=== PATIENT | male | born 1960 | race Caucasian/White ===

== ENCOUNTER → 2019-07-19 09:13 | Outpatient (CLI) | payer OTHER, SELFPAY ==
--- NOTE | 2019-07-19 09:19 | US_ITS ---
STUDY: SCROTUM ULTRASOUND REASON FOR EXAM: Male, 59 years old. LEFT TESTICLE SWELLING TECHNIQUE: Ultrasound evaluation of the scrotum was performed with color Doppler and static santos-scale imaging. COMPARISON: None. FINDINGS: RIGHT TESTICLE INTRATESTICULAR: There is a normal size of the right testicle. The right testicle measures 4.7 x 3.6 x 2.6 cm. There is a homogenous echotexture. There is normal arterial and normal venous vascularity. There is no demonstrated right testicular mass or cyst. EXTRATESTICULAR: The epididymis is normal in size. The epididymis head measures 1.4 cm. There is normal vascularity of the epididymis. There is no demonstrated epididymal cystic structure. There is a small hydrocele. There is no demonstrated varicocele. There is no demonstrated extratesticular mass or cyst. LEFT TESTICLE INTRATESTICULAR: There is a normal size of the left testicle. The left testicle measures 4.4 x 4.3 x 2.6 cm. There is a homogenous echotexture. There is normal arterial and normal venous vascularity. There is no demonstrated left testicular mass or cyst. EXTRATESTICULAR: The epididymis is normal in size. The epididymis head measures 1.8 cm. There is normal vascularity of the epididymis. There is no demonstrated epididymal cystic structure. There is either a large hydrocele or spermatocele measuring 6.7 x 6.5 x 3.8 cm and containing septations. There is no demonstrated varicocele. There is no demonstrated extratesticular mass or cyst. US/Testicular with Arterial Flow IMPRESSION: Normal bilateral testicles. Bilateral hydroceles, larger on the left than the right, the left hydrocele containing septations and could also be a spermatocele Electronically Signed: Braxton Hardwick MD at 10:15 EDT , Service support ,
== END ==
PROVIDERS: PCP Internal Medicine; Referring Provider Nurse Practitioner Adult Health; Visit Provider Nurse Practitioner Adult Health
DX: N43.2 Other hydrocele (principal); N50.9 Disorder of male genital organs, unspecified
CPT/HCPCS: 76870; 93976

== ENCOUNTER → 2020-09-19 09:30 | Outpatient (CLI) | payer OTHER, SELFPAY ==
--- NOTE | 2020-09-19 09:29 | EKG12_ITS ---
Test Reason : PREOP Blood Pressure : / mmHG Vent. Rate : 055 BPM Atrial Rate : 055 BPM P-R Int : 144 ms QRS Dur : 084 ms QT Int : 424 ms P-R-T Axes : 011 036 048 degrees QTc Int : 405 ms Sinus bradycardia Otherwise normal ECG Confirmed by FANNY CALVIN, JOANNA ([id number]), editor managing director SANDRA MILES ([id number]) on 09/20/2020 9:52:34 AM Referred By: Gustabo Santiago Confirmed By:JOANNA ESCOBEDO MD
[2020-09-19 10:24] LABS: Hematocrit 43.5 % (40-54); Mean Corp Hgb Conc 34.5 g/dL (32-36); Mean Corpuscular Hgb 30.4 pg (27.0-32.0); Mean Corpuscular Volume 88.1 fL (80-94); Mean Platelet Vol. 11.3 fl (6.2-12.0); Platelet Count 218 K/mm3 (150-450); RBC Distribution Width CV 12.7 % (11.6-14.6); RBC Distribution Width SD 41.1 fl (35.1-43.9); Red Blood Count 4.94 M/mm3 (4.6-6.2); White Blood Count 5.7 K/mm3 (4.4-11.0)
[2020-09-19 10:48] LABS: Anion Gap 3 (5-15); BUN 14 mg/dL (7-18); BUN/Creat Ratio 15.4 RATIO (10-20); Calcium,Total 8.1 mg/dL (8.5-10.1); Chloride 107 mmol/L (98-107); Creatinine, Serum 0.91 mg/dL (0.70-1.30); EST Glomerular Filtration Rate 90 mL/min (>60); Est Glom Filt Rate - Afr Amer 109 mL/min (>60); Glucose 87 mg/dL (74-106); Potassium 3.8 mmol/L (3.5-5.1); Sodium Level 138 mmol/L (136-145)
== END ==
PROVIDERS: PCP Internal Medicine; Referring Provider Urology; Visit Provider Urology
DX: Z01.812 Encounter for preprocedural laboratory examination (principal); Z01.818 Encounter for other preprocedural examination
CPT/HCPCS: 36415; 80048; 85027; 87635; 93005; C9803; U0005; U0003

== ENCOUNTER 2022-07-26 02:59 | Emergency (ER) | payer OTHER, SELFPAY ==
[2022-07-26 03:00] VITALS: BP 148/75; PULSE 58; RESP 16; TEMP 36.9; O2SAT 99; BMI 32.8
--- NOTE | 2022-07-26 03:35 | EX.ED.DYSGE1 ---
HPI History of Present Illness Chief Complaint: Dizziness Narrative Narrative: 62-year-old male woke up tonight with vertiginous dizziness he states that he looks to the left and noted that everything was spinning. He tried to get up and states he became very dizzy. He vomited 4 times. He denies any chest pain or shortness of breath. Patient denies any lightheadedness. Patient states he has no history of vertigo. PFSH PFS Medical History Bradycardia Home Medications aspirin 81 mg capsule 81 mg PO DAILY 07/26/22 [History Last Taken Unknown] atorvastatin 10 mg tablet 10 mg PO DAILY 07/26/22 [History Last Taken Unknown] levothyroxine 125 mcg tablet 125 mcg PO DAILY 07/26/22 [History Last Taken Unknown] meclizine 25 mg tablet 25 mg PO TID PRN dizziness #30 tabs 07/26/22 [Rx Last Taken Unknown] omega-3 fatty acids 1,000 mg PO DAILY 07/26/22 [History Last Taken Unknown] Allergy/AdvReac Type Severity Reaction Status Date / Time No Known Allergies Allergy Verified 07/26/22 03:03 Social History Smoking Status: Never smoker ROS ROS ED Review of Systems ROS Unobtainable: Denies due to encephalopathy or due to endotracheal tube Constitutional Constitutional ED: Denies subjective or sweats Eyes Eyes: Reports other Details: Vertiginous dizziness ENT ENT ED: Denies rhinorrhea or sore throat Cardiovascular Cardiovascular: Denies chest pain or palpitations Respiratory/Chest Respiratory/Chest: Denies cough or dyspnea Gastrointestinal Gastrointestinal: Reports nausea and vomiting; Denies abdominal pain Genitourinary Genitourinary ED: Denies dysuria or hematuria Musculoskeletal Musculoskeletal: Denies arthralgias Integumentary Denies abscess or Abrasions Neurologic Neurologic: Denies headache(s) or paresthesias EXAM Physical Exam Const Vital Signs: 07/26/22 03:00 07/26/22 04:18 Temperature 98.4 F Temperature Source Oral Pulse Rate 58 L 65 Respiratory Rate 16 15 Blood Pressure 148/75 H 133/80 H Blood Pressure Mean 99 97 Pulse Ox 99 97 Oxygen Delivery Method Room Air Room Air Positive well nourished General Appearance ED: NAD; Negative for pallor HEENT Reports moist mucous membranes HEENT Narrative: Positive Townsend-Hallpike Eyes PERRL and EOMs intact bilaterally Chest Wall inspection of chest normal Resp normal respiratory effort and clear to auscultation bilaterally Auscultation: Negative for rales, rhonchi or wheezes Cardio regular rhythm Rate: bradycardia GI normal to inspection, nondistended, normoactive bowel sounds Extremity General Extremety ED: Negative for edema or tenderness General Extremity: Negative for edema Neuro oriented x3 and CN's II-XII intact bilaterally Sensorium / Orientation: alert Motor Exam: strength 5/5 throughout Psych mental status grossly normal Skin no rashes or lesions noted and no wounds General Skin Exam: Negative for jaundice or pallor MDM MDM MDM Narrative Medical decision making narrative: Patient presenting with vertiginous dizziness. Based on exam has benign positional vertigo. Patient medicated. Will obtain basic lab work since the patient has been vomiting. CBC and BMP within normal limits. On reevaluation the patient feels better after being medicated with meclizine and Phenergan. He is ambulated in the hallway and has a stable gait. At this point I will discharge him home with prescription for meclizine. Return precautions discussed. Impression: 1. Benign positional vertigo Lab Data Attestation: I reviewed the patient's lab results. Labs: Laboratory Results - last 24 hr 07/26/22 07/26/22 03:15 03:15 WBC 6.7 RBC 4.82 Hgb 14.7 Hct 43.4 MCV 90.0 MCH 30.5 MCHC 33.9 RDW Std Deviation 40.7 RDW Coeff of [place] 12.3 Plt Count 191 MPV 11.2 Immature Gran % (Auto) 0.300 Neut % (Auto) 60.6 Lymph % (Auto) 27.8 [place] % (Auto) 7.8 Eos % (Auto) 3.1 Baso % (Auto) 0.4 Absolute Neuts (auto) 4.1 Absolute Lymphs (auto) 1.86 Nucleated RBC % 0 Sodium 143 Potassium 4.0 Chloride 110 H Carbon Dioxide 25.0 Anion Gap 8 BUN 19 H Creatinine 0.85 Estim Creat Clear Calc 83.17 Est GFR (MDRD) Af Amer 117 Est GFR (MDRD) Non-Af 97 BUN/Creatinine Ratio 22.4 H Glucose 133 H Calcium 8.5 Discharge Plan Triage Chief Complaint: Dizziness ED Provider: Mario Siu Dx/Rx/DC Orders Instructions: ED BPV Vertigo Prescriptions: New meclizine 25 mg tablet 25 mg PO TID PRN (Reason: dizziness) Qty: 30 0RF No Action atorvastatin 10 mg tablet 10 mg PO DAILY levothyroxine 125 mcg tablet 125 mcg PO DAILY [place] 3 Fish Oil Capsule 1,000 mg PO DAILY aspirin 81 mg Capsule 81 mg PO DAILY Primary Care Provider: Domingo Govea Referrals: Domingo Govea MD [Primary Care Provider] - Disposition Disposition: Home, Self Care
[2022-07-26] MEDS: proMETHazine 25 MG/ML Syringe 12.5 MG IM (03:45)
[2022-07-26 03:55] LABS: Absolute Lymphocyte Count 1.86 X10^3/uL (0.83-4.51); Absolute Neutrophil Count 4.1 X10^3/uL (2.0-7.7); Basophil# 0.03 X10^3/uL; Basophil% 0.4 % (0-1); Eosinophil# 0.21 X10^3/uL; Eosinophils% 3.1 % (0-5); Hematocrit 43.4 % (40-54); Hemoglobin 14.7 g/dL (13.0-16.5); Lymphocyte # 1.86 X10^3/ul (0.83-4.51); Lymphocyte % 27.8 % (19-41); Mean Corp Hgb Conc 33.9 g/dL (32-36); Mean Corpuscular Hgb 30.5 pg (27.0-32.0); Mean Platelet Vol. 11.2 fl (6.2-12.0); Monocyte# 0.52 X10^3/uL; Monocyte% 7.8 % (0-10); NRBC Flagged by Analyzer 0 % (0-5); Neutrophil # 4.06 X10^3/uL (2.7-7.7); Neutrophil % 60.6 % (47-70); Platelet Count 191 K/mm3 (150-450); RBC Distribution Width CV 12.3 % (11.6-14.6); RBC Distribution Width SD 40.7 fl (35.1-43.9); Red Blood Count 4.82 M/mm3 (4.6-6.2); White Blood Count 6.7 K/mm3 (4.4-11.0)
[2022-07-26 04:01] LABS: Anion Gap 8 (5-15); BUN 19 mg/dL (7-18); BUN/Creat Ratio 22.4 RATIO (10-20); Calcium,Total 8.5 mg/dL (8.5-10.1); Chloride 110 mmol/L (98-107); Creatinine, Serum 0.85 mg/dL (0.70-1.30); EST Glomerular Filtration Rate 97 mL/min (>60); Est Glom Filt Rate - Afr Amer 117 mL/min (>60); Estimated Creatinine Clearance 83.17 ml/min; Glucose 133 mg/dL (74-106); Sodium Level 143 mmol/L (136-145)
[2022-07-26] MEDS: Meclizine HCl 25 MG Tablet PO (04:17)
[2022-07-26 04:18] VITALS: BP 133/80; PULSE 65; RESP 15; O2SAT 97
[2022-07-26 05:42] VITALS: BP 133/80; PULSE 65; RESP 15; O2SAT 97
== END 2022-07-26 06:52 | disposition home or self-care (01) ==
PROVIDERS: Emergency Provider Student in an Organized Health Care Education/Training Program; PCP Internal Medicine; Visit Provider Student in an Organized Health Care Education/Training Program
DX: H81.12 Benign paroxysmal vertigo, left ear (principal); Z79.82 Long term (current) use of aspirin
CPT/HCPCS: 80048; 85025; 96372; 99285; A4216

== ENCOUNTER → 2024-09-04 | Outpatient (CLI) | payer MEDICARE, OTHER, SELFPAY | END | disposition home or self-care (01) | LOC: LABSPEC 11:30 | PROVIDERS: PCP Internal Medicine; Referring Provider Nurse Practitioner Family; Visit Provider Nurse Practitioner Family | DX: J02.9 Acute pharyngitis, unspecified (principal) | CPT/HCPCS: 87070 ==

== ENCOUNTER 2025-02-25 02:36 | Inpatient (IN) | payer MEDICARE, OTHER, SELFPAY ==
[2025-02-25] VITALS (11 sets, daily range): BP systolic 99–167; BP diastolic 67–101; PULSE 50–87; RESP 14–18; TEMP 36.5–36.8; O2SAT 56–100; BMI 35.3; BMI 33.6
--- NOTE | 2025-02-25 02:42 | EKG12_ITS ---
Test Reason : CP Blood Pressure : */* mmHG Vent. Rate : 63 BPM Atrial Rate : 63 BPM P-R Int : 120 ms QRS Dur : 74 ms QT Int : 384 ms P-R-T Axes : 1 15 29 degrees QTcB Int : 392 ms Normal sinus rhythm Low voltage QRS Borderline ECG Confirmed by Rafael Ortiz ([id number]), editorial specialist SANDRA MILES ([id number]) on 02/27/2025 10:04:40 AM Referred By: Christina Black Confirmed By: Rafael Ortiz
--- NOTE | 2025-02-25 02:50 | RAD_ITS ---
PROCEDURE: CHEST 1 VIEW (PORTABLE) 02/25/2025 REASON FOR EXAM: CHEST PAIN TECHNIQUE: Frontal view of the chest. COMPARISON: None available. FINDINGS: No focal lung consolidation, pneumothorax, or pleural effusion. The cardiomediastinal silhouette is within normal limits. The merly are within normal limits. Degenerative changes in the thoracic spine. RAD/Chest 1 View (Portable) IMPRESSION: No radiographic evidence of acute cardiopulmonary pathology. Reading Location: [id number]
[2025-02-25] MEDS: Nitroglycerin SL (ED/IMG/CATH) 0.4 MG TABLET SL (02:51)
[2025-02-25 03:01] LABS: Hematocrit 41.3 % (40-54); Hemoglobin 14.5 g/dL (13.0-16.5); Immature Granulocytes Count 0.030 X10^3/uL (0.0-0.0); Mean Corp Hgb Conc 35.1 g/dL (32-36); Mean Corpuscular Volume 86.6 fL (80-94); Mean Platelet Vol. 10.9 fl (6.2-12.0); NRBC Flagged by Analyzer 0 % (0-5); Platelet Count 224 K/mm3 (150-450); RBC Distribution Width CV 11.7 % (11.6-14.6); RBC Distribution Width SD 37.2 fl (35.1-43.9); Red Blood Count 4.77 M/mm3 (4.6-6.2); White Blood Count 7.2 K/mm3 (4.4-11.0)
[2025-02-25 03:10] LABS: Prothrombin Time (Protime)PT. 13.7 SECONDS (11.7-14.9)
[2025-02-25 03:11] LABS: Partial Thromboplast Time 28.8 Seconds (24.1-36.2)
--- OUTSIDE RECORDS SUMMARY | 2025-02-25 03:16 | XMS RPT_ITS | CCD ---
Author Organization [facility] Care Team Providers Care Arboriculture Teacher Name Role Phone Jeferson CALVIN, Dr. Lane Primary Care Provider Dr. Sathya Govea MD Referring Provider Milagros CALVIN, Dr. Burkett Attending Provider Roof PAINTER HELPER SPRAY-C, Victor M Bills Attending Provider [phone] Roof PAINTER HELPER SPRAY-C, Victor M H Referring Provider [phone] Jeferson, Butros Primary Care Unavailable Kwadwo Linares Attending Unavailable Alberto Govearos Referring Unavailable Latrolandf, Butros Primary Care Unavailable Roof PAINTER HELPER SPRAY, Victor M H Referring Unavailable Roof PAINTER HELPER SPRAY, Victor M H Attending Unavailable Care Physician, No Primary Primary Care Unava ilable Kwadwo Linares Referring Unavailable Kwadwo Linares Attending Unavailable Latouf, Butros Primary Care Unavailable Roof PAINTER HELPER SPRAY, Victor M H Attending Unavailable Lattamia Butros Referring Unavailable BRAXTON, KELSEY Referring Unavailable BRAXTON, KELSEY Primary Care Unavailable BRAXTON, KELSEY Attending Unavailable BRAXTON, KELSEY Primary Care Unavailable BRAXTON, KELSEY Primary Care Unavailable BRAXTON, KELSEY Referring Unavailable BRAXTON, KELSEY Primary Care Unavailable BRAXTON, KELSEY Attending Unavailable SELF Referring Unavailable SATHYA GOVEA MD Attending Unavailable SATHYA GOVEA MD Admitting Unavailable SATHYA GOVEA MD Consulting Unavailable SATHYA GOVEA MD Primary Care Unavailable PROVIDER, UNKNOWN Consulting Unavailable PROVIDER, UNKNOWN Consulting Unavailable PROVIDER, UNKNOWN Consulting Unavailable May STUCCO APPLICATOR Referring Unavailable LUCIORVIKTOR AUNG DO Primary Care Unavailable AUNG NAPOLES DO Attending Unavailable May STUCCO APPLICATOR Consulting Unavailable AUNG NAPOLES DO Admitting Unavailable PROVIDER, UNKNOWN Consulting Unavailable PROVIDER, UNKNOWN Consulting Unavailable May STUCCO APPLICATOR Referring Unavailable May STUCCO APPLICATOR Consulting Unavailable RIKI DIOR MD Primary Care Unavailable RIKI DIOR MD Attending Unavailable RIKI DIOR MD Admitting Unavailable PROVIDER, UNKNOWN Consulting Unavailable PROVIDER, UNKNOWN Consulting Unavailable DONNA MACK Primary Care Unavailable MARTINA, DONNA Attending Unavailable MARTINA, DONNA Admitting Unavailable SATHYA GOVEA MD Consulting Unavailable PROVIDER, UNKNOWN Consulting Unavailable PROVIDER, UNKNOWN Consulting Unavailable PROVIDER, UNKNOWN Consulting Unavailable OSVALDO TAYLOR MD Attending Unavailab OSVALDO Dahl MD Admitting Unavailab OSVALDO Dahl MD Primary Care Unavailab le COREY, MAY STUCCO APPLICATOR Attending Unavailable COREY, MAY STUCCO APPLICATOR Admitting Unavailable COREY, MAY STUCCO APPLICATOR Primary Care Unavailable COREY, MAY STUCCO APPLICATOR Consulting Unavailable PROVIDER, UNKNOWN Consulting Unavailable PROVIDER, UNKNOWN Consulting Unavailable COREY, MAY STUCCO APPLICATOR Attending Unavailable COREY, MAY STUCCO APPLICATOR Admitting Unavailable COREY, MAY STUCCO APPLICATOR Primary Care Unavailable COREY, MAY STUCCO APPLICATOR Consulting Unavailable PROVIDER, UNKNOWN Consulting Unavailable PROVIDER, UNKNOWN Consulting Unavailable SATHYA GOVEA MD Admitting Unavailable SATHYA GOVEA MD Attending Unavailable SATHYA GOVEA MD Consulting Unavailable SATHYA GOVEA MD Primary Care Unavailable PROVIDER, UNKNOWN Consulting Unavailable PROVIDER, UNKNOWN Consulting Unavailable PROVIDER, UNKNOWN Consulting Unavailable COREY, MAY STUCCO APPLICATOR Attending Unavailable COREY, MAY STUCCO APPLICATOR Admitting Unavailable COREY, MAY STUCCO APPLICATOR Primary Care Unavailable COREY, MAY STUCCO APPLICATOR Consulting Unavailable PROVIDER, UNKNOWN Consulting Unavailable PROVIDER, UNKNOWN Consulting Unavailable OSVALDO TAYLOR MD Primary Care Unavailab OSVALDO Dahl MD Attending Unavailab OSVALDO Dahl MD Admitting Unavailab le COREY, MAY STUCCO APPLICATOR Consulting Unavailable PROVIDER, UNKNOWN Consulting Unavailable PROVIDER, UNKNOWN Consulting Unavailable COREY, MAY STUCCO APPLICATOR Attending Unavailable COREY, MAY STUCCO APPLICATOR Admitting Unavailable COREY, MAY STUCCO APPLICATOR Primary Care Unavailable COREY, MAY STUCCO APPLICATOR Consulting Unavailable PROVIDER, UNKNOWN Consulting Unavailable PROVIDER, UNKNOWN Consulting Unavailable SATHYA GOVEA MD Attending Unavailable SATHYA GOVEA MD Consulting Unavailable SATHYA GOVEA MD Primary Care Unavailable SATHYA GOVEA MD Admitting Unavailable PROVIDER, UNKNOWN Consulting Unavailable PROVIDER, UNKNOWN Consulting Unavailable PROVIDER, UNKNOWN Consulting Unavailable Allergies Allergy Classification Reported Allergen(s) Allergy Type Date of Onset Reaction(s) Facility (3 sources) predniSONE; Translations: [PREDNISONE] Drug Allergy 5 PT UNSURE OF REACTION [facility] (1 source) predniSONE Drug Allergy [address] [facility] Repository Medications Current Medications Medication Drug Class(es) Dates Sig (Normalized) Sig (Original) ascorbic acid 500 mg oral capsule (3 sources) Vitamin C Start: 08-31-2024 Ascorbic Acid (Vitamin C) 500 mg capsule Active mg PO August 31, 2024 12:00am aspirin 81 mg oral tablet (4 sources) Platelet Aggregation Inhibitor, Nonsteroidal Anti-inflammatory Drug Start: 07-26-2022 take 1 capsule by mouth once daily Aspirin 81 mg Capsule Active 81 mg PO DAILY July 26, 2022 12:00am atorvastatin 10 mg oral tablet (4 sources) HMG-CoA Reductase Inhibitor Start: 07-26-2022 take 1 tablet by mouth once daily Atorvastatin 10 mg tablet Active 10 mg PO DAILY July 26, 2022 12:00am cholecalciferol 0.05 mg oral capsule (3 sources) Vitamin D Start: 08-31-2024 take 1 capsule by mouth once daily Cholecalciferol (Vitamin D3) 50 mcg (2,000 unit) capsule Active 50 ug PO daily August 31, 2024 12:00am doxycycline hyclate 100 mg oral capsule (2 sources) Tetracycline-clas s Drug Start: 09-03-2024 take 1 capsule by mouth twice daily Doxycycline Hyclate 100 mg capsule Active 100 mg PO TWICE A DAY 14 7 0 September 03, 2024 12:00am September 09, 2024 12:00am levothyroxine sodium 0.125 mg oral tablet (4 sources) l-Thyroxine Start: 07-26-2022 take 1 tablet by mouth once daily Levothyroxine 125 mcg tablet Active 125 ug PO DAILY July 26, 2022 12:00am Russell-3 Fatty Acids (Russell 3 Fish Oil) Capsule (4 sources) Start: 07-26-2022 take 1 capsule by mouth once daily Russell-3 Fatty Acids (Russell 3 Fish Oil) Capsule Active 1000 mg PO DAILY July 26, 2022 12:00am Start: 07-26-2022 take 1 capsule by mouth once d aily Russell-3 Fatty Acids (Russell 3 Fish Oil) Capsule Active 1000 MG PO DAILY July 26, 2022 12:00am Completed/Discontinued Medications Medication Drug Class(es) Dates Sig (Normalized) Sig (Original) meclizine hydrochloride 25 mg oral tablet (4 sources) Antiemetic Start: 07-26-2022 End: 08-31-2024 take 1 tablet by mouth three times daily as needed for dizziness Meclizine 25 mg tablet Discontinued 25 mg PO THREE TIMES A DAY as needed for dizziness 30 0 July 26, 2022 5:43am August 31, 2024 9:20am Problems Active Problems Problem Classification Problem Date Documented Da te Episodic/Chronic Administrative/social admission (1 source) Persons encountering health services in other specified circumstances; Translations: [Encounter to establish care] Onset: 5 Episodic Congestive heart failure; nonhypertensive (1 source) Heart failure, unspecified; Translations: [Heart failure, unspecified HF chronicity, unspecified heart failure type (HCC)] Onset: 5 Chronic Disorders of lipid metabolism (6 sources) Mixed hyperlipidemia; Translations: [Hyperlipidemia, unspecified] Onset: 4 Chronic Essential hypertension (2 sources) Essential (primary) hypertension; Translations: [Primary hypertension] Onset: 5 Chronic Immunizations and screening for infectious disease (1 source) Encounter for screening for human immunodeficiency virus [HIV]; Translations: [Encounter for screening for human immunodeficiency virus (HIV)] Onset: 5 Episodic Nutritional deficiencies (1 source) Vitamin D deficiency, unspecified; Translations: [Vitamin D deficiency, unspecified] Onset: 5 Chronic Other gastrointestinal disorders (6 sources) Dysphagia; Translations: [Dysphagia, unspecified] 08-31-2024 Episodic Other gastrointestinal disorders (1 source) Dysphagia, unspecified; Translations: [Dysphagia, unspecified] Onset: 5 Episodic Other liver diseases (1 source) Other specified diseases of liver; Translations: [Liver cyst] Onset: 5 Chronic Other nutritional; endocrine; and metabolic disorders (1 source) Body mass index (BMI) 36.0-36.9, adult; Translations: [Body mass index (BMI) 36.0-36.9, adult] Onset: 5 Chronic Other upper respiratory infections (5 sources) Acute pharyngitis; Translations: [Acute pharyngitis, unspecified] Onset: 5 09-03-2024 Episodic Screening and history of mental health and substance abuse codes (2 sources) Encounter for screening for depression; Translations: [Encounter for screening examination for other mental health and behavioral disorders] Onset: 5 Episodic Thyroid disorders (2 sources) Hypothyroidism, unspecified; Translations: [Hypothyroidism, acquired] Onset: Chronic Past or Other Problems Problem Classification Problem Date Documented Da te Episodic/Chronic Abdominal pain (1 source) Unspecified abdominal pain; Translations: [Unspecified abdominal pain] Onset: 08-10-2024 Episodic Other screening for suspected conditions (not mental disorders or infectious disease) (12 sources) Patient encounter status; Translations: [Encounter for screening for malignant neoplasm of colon] Onset: 08-10-2024 08-31-2024 Episodic Results Test Name Value Interpretation Reference Range Facility CNOVon 12-22-2024 CNOV Office Visit (FAMPWS ) ----- TOD PABON ([id number]) 1960 M Date Time Provider Department 12/22/24 4:20 PM KELSEY [facility] During your visit today, we recorded the following information about you: Pulse Respiration Blood pressure 67/minute 12/minute 138/100 Kelsey Braxton MD 12/24/2024 10:19 AM Signed Family Medicine OUTPATIENT VISIT December 22, 2024 CC: HLD FU HPI: 64 year old male patient with a history of HLD on atorvastatin Hypothyroidism on synthroid HTN on lisinopril 2.5 Liver cysts On asa for primary prevention ALEXYS on 12/13 Cards 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 He reports he has a high PVC burden and he reports he has an ejection fraction from 50-55%. Reports he is asymptomatic. We do not have further records regarding his cardiac history today and this is what he can recall. He would like to establish with [facility] cards. Reports he has not been diagnosed with HTN (however he is on lisinopril) and he is usually normotensive. He has a BP cuff at home. He has not been taking lisinopril for months. Interval events HDL mildly low. LDL 96 Hep B not immune Cards note from 06/30. Stress test 09/18 negative for inducible ischemia or infarct. Echo normal EF, wall motion. Holter 08/20 average HR 64. Minimum HR 39 while asleep. BP: He has started taking his BP med every other day. He is mostly in the 120-130/80's. Review of Systems PAIN ASSESSMENT: Negative for pain, history of chronic pain, or current treatment for a chronic pain condition. GENERAL: No weight loss, or fevers HEENT: Negative for frequent or significant headaches RESPIRATORY: Negative for cough, wheezing, shortness of breath CARDIOVASCULAR: Negative for chest pain, palpitations, PND or orthopnea GI: No nausea, vomiting, or diarrhea or abdominal pain. No IN bleeding or melana : No history of dysuria, frequency, urgency, or change in urine appearance NEURO: No history of headaches, numbness, weakness, or changes to vision or hearing Health maintenance: Anxiety Screening Never done DTaP,Tdap,Td Vaccine(1 - Tdap) Never done Colorectal Cancer Screening Never done Shingrix Vaccine(1 of 2) Never done Pneumococcal Vaccine: 50+(1 of 1 - PCV) Never done Medicare Annual Wellness Visit Never done Advance Directive Discussion Never done Allergies: ALLERGIES Allergen Reactions Prednisone Swelling inflamed kidney blood pressure elevated Medications: Cholecalciferol, Vitamin D3, (VITAMIN D) 25 mcg (1,000 unit) cap Take 1,000 Units by mouth once daily. Ascorbic Acid (VITAMIN C) 1,000 mg tablet Take 1,000 mg by mouth once daily. atorvastatin (LIPITOR) 10 mg tablet Take 0.5 tablets by mouth once daily. levothyroxine 125 mcg cap Take 1 capsule by mouth once daily. Zinc Gluconate 50 mg tablet Take 50 mg by mouth once daily. lisinopril 2.5 mg tablet Take 1 tablet by mouth once daily. fish oil/borage/flax/om3,6,9 1 (OMEGA 3-6-9 COMPLEX ORAL) Take 1 tablet by mouth once daily. ubidecarenone Q-10 (CO Q-10) 10 mg cap Take by mouth as needed (every other day). aspirin, enteric coated (ASPIRIN, ENTERIC COATED) 81 mg EC tablet Take 81 mg by mouth once daily. Past Medical History: PAST MEDICAL HISTORY Diagnosis Date Hyperlipemia Hypothyroidism Social History: SOCIAL HISTORY[1] Family History: Family History Problem Relation Age of Onset Heart Attack Mother Heart Attack Brother BP 138/100 Pulse 67 Resp 12 SpO2 98% General: Awake, alert, not in acute distress, obese EAR SPECIALIST: Answering questions appropriately. No abnormal posturing or positioning. Speech is normal. Strength grossly intact. RESP: Clear lungs bilateral with good air entry, No increased work of breathing CVS: RRR, No murmur. Pulses 2+. GI: Abdomen is soft, non distended, non tender. No masses or hepatomegaly appreciated. Skin/Other: No rashes or lesions. HEENT: pupils equal Extremities: No peripheral edema, swelling or erythema of lower extremities. Labs: Reviewed the following: Pertinent labs as outlined above Latest Ref Rng 12/13/2024 Protein, Total 6.3 - 8.0 g/dL 8.0 Albumin 3.9 - 4.9 g/dL 4.8 Calcium 8.5 - 10.2 mg/dL 9.4 Bilirubin, Total 0.2 - 1.3 mg/dL 1.3 Alkaline Phosphatase 38 - 113 U/L 63 AST 14 - 40 U/L 21 ALT 10 - 54 U/L 22 Glucose 74 - 99 mg/dL 94 BUN 9 - 24 mg/dL 12 Creatinine 0.73 - 1.22 mg/dL 0.84 Sodium 136 - 144 mmol/L 140 Potassium 3.7 - 5.1 mmol/L 4.8 Chloride 98 - 107 mmol/L 104 CO2 22 - 30 mmol/L 25 Anion Gap 8 - 15 mmol/L 11 eGFR >=60 mL/min/1.73m? 97 WBC 3.70 - 11.00 k/uL 6.53 RBC 4.20 - 6.00 m/uL 5.20 Hemoglobin 13.0 - 17.0 g/dL 15.8 Hematocrit 39.0 - 51.0 % 47.4 MCV 80.0 - 100.0 fL 91.2 MCH 26.0 - 34.0 pg 30.4 MCHC 30.5 - 36.0 g/dL 33.3 RDW-CV 11.5 - 15.0 % 12.9 Platelet Count 150 - 400 k/uL 236 MPV 9.0 - 12.7 fL 11.7 Absol (more content not included)... Normal [facility] PSA/PROSTATE SPECIFIC ANTIGE N SCREENINGon 12-22-2024 Prostate specific Ag [Mass/Vol] 1.22 ng/mL Normal <2.60 [facility] Comment on above: Order Comment: Speci men Type: BLOOD SPECIMEN Ordering Facility: [facility] Address: [address] [place] [address] Result Comment: Tota l PSA test methodology used is the Electrochemiluminescence Immunoassay by [employer]. Total PSA values by differing methodologies cannot be interchanged. Performed By: #### L IPNF, TSHRF, 07627-2, 2776-1 #### [facility] CLIA [id number] [address] [place] [address] [place] 25(OH)D3 SerPl-ncon 2024 25-hydroxyvitamin D3 [Mass/Vol] 60.8 ng/mL Normal 31.0-80.0 [facility] Comment on above: Order Comment: Speci men Type: BLOOD SPECIMEN Ordering Facility: [facility] Address: [address] [place] [address] Performed By: #### L IPNF, TSHRF, 84262-8, 2776-03 #### [facility] CLIA [id number] [address] [place] [address] [place] CBC panel Auto (Bld)on 12-13 Erythrocyte distribution width (RBC) [Ratio] 12.9 % Normal 11.5-15.0 [facility] Comment on above: Order Comment: Speci men Type: BLOOD SPECIMEN Ordering Facility: [facility] Address: [address] [place] [address] Performed By: #### L IPNF, TSHRF, 54272-0, 2776-03 #### [facility] CLIA [id number] [address] [place] [address] [place] Hematocrit (Bld) [Volume fraction] 47.4 % Normal 39.0-51.0 [facility] Comment on above: Order Comment: Speci men Type: BLOOD SPECIMEN Ordering Facility: [facility] Address: [address] [place] [address] Performed By: #### L IPNF, TSHRF, 03447-6, 277- #### [facility] CLIA [id number] [address] [place] [address] [place] Hemoglobin (Bld) [Mass/Vol] 15.8 g/dL Normal 13.0-17.0 [facility] Comment on above: Order Comment: Speci men Type: BLOOD SPECIMEN Ordering Facility: [facility] Address: [address] [place] [address] Performed By: #### L IPNF, TSHRF, 66973-8, 2776-03 #### [facility] CLIA [id number] [address] [place] [address] [place] MCH (RBC) [Entitic mass] 30.4 pg Normal 26.0-34.0 [facility] Comment on above: Order Comment: Speci men Type: BLOOD SPECIMEN Ordering Facility: [facility] Address: [address] [place] [address] Performed By: #### L IPNF, TSHRF, , 2776-03 #### [facility] CLIA [id number] [address] [place] [address] [place] MCHC (RBC) [Mass/Vol] 33.3 g/dL Normal 30.5-36.0 [facility] Comment on above: Order Comment: Speci men Type: BLOOD SPECIMEN Ordering Facility: [facility] Address: [address] [place] [address] Performed By: #### L IPNF, TSHRF, 24773-9, 2776-03 #### [facility] CLIA [id number] [address] [place] [address] [place] MCV (RBC) [Entitic vol] 91.2 fL Normal 80.0-100.0 [facility] Comment on above: Order Comment: Speci men Type: BLOOD SPECIMEN Ordering Facility: [facility] Address: [address] [place] [address] Performed By: #### L IPNF, TSHRF, 78101-8, 277- #### [facility] CLIA [id number] [address] [place] [address] [place] Nucleated RBC (Bld) [#/Vol] 10*3/uL Normal <0.01 [facility] Comment on above: Order Comment: Speci men Type: BLOOD SPECIMEN Ordering Facility: [facility] Address: [address] [place] [address] Performed By: #### L IPNF, TSHRF, , 2776-03 #### [facility] CLIA [id number] [address] [place] [address] [place] Platelet mean volume (Bld) [Entitic vol] 11.7 fL Normal 9.0-12.7 [facility] Comment on above: Order Comment: Speci men Type: BLOOD SPECIMEN Ordering Facility: [facility] Address: [address] [place] [address] Performed By: #### L IPNF, TSHRF, , 2776-03 #### [facility] CLIA [id number] [address] [place] [address] [place] Platelets (Bld) [#/Vol] 236 10*3/uL Normal 150-400 [facility] Comment on above: Order Comment: Speci men Type: BLOOD SPECIMEN Ordering Facility: [facility] Address: [address] [place] [address] Performed By: #### L IPNF, TSHRF, , 2776-03 #### [facility] CLIA [id number] [address] [place] [address] [place] RBC (Bld) [#/Vol] 5.20 10*6/uL Normal 4.20-6.00 [facility] Comment on above: Order Comment: Speci men Type: BLOOD SPECIMEN Ordering Facility: [facility] Address: [address] [place] [address] Performed By: #### L IPNF, TSHRF, , 2776-03 #### [facility] CLIA [id number] [address] [place] [address] [place] WBC (Bld) [#/Vol] 6.53 10*3/uL Normal 3.70-11.00 [facility] Comment on above: Order Comment: Speci men Type: BLOOD SPECIMEN Ordering Facility: [facility] Address: [address] [place] [address] Performed By: #### L ELAYNE, [facility], 04431-1, 2777-1 #### [facility] CLIA [id number] [address] [place] [address] [place] CNOVon 12-13-2024 CNOV Office Visit (FAMWS ) ----- TOD PABON ([id number]) 1960 M Date Time Provider Department 12/13/24 9:00 AM KELSEY BRAXTON [facility] During your visit today, we recorded the following information about you: Temperature Pulse Blood pressure Weight 97.9 degrees 70/minute 152/104 100.2 kg Height 1.657 m Kelsey Braxton MD 12/13/2024 4:12 PM Signed Family Medicine OUTPATIENT VISIT December 13, 2024 CC: Establish care HPI: 64 year old male patient with a history of HLD on atorvastatin Hypothyroidism on synthroid HTN on lisinopril 2.5 Liver cysts On asa for primary prevention Cards 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 He reports he has a high PVC burden and he reports he has an ejection fraction from 50-55%. Reports he is asymptomatic. We do not have further records regarding his cardiac history today and this is what he can recall. He would like to establish with [facility] cards. Reports he has not been diagnosed with HTN (however he is on lisinopril) and he is usually normotensive. He has a BP cuff at home. He has not been taking lisinopril for months. Review of Systems PAIN ASSESSMENT: Negative for pain, history of chronic pain, or current treatment for a chronic pain condition. GENERAL: No weight loss, or fevers HEENT: Negative for frequent or significant headaches RESPIRATORY: Negative for cough, wheezing, shortness of breath CARDIOVASCULAR: Negative for chest pain, palpitations, PND or orthopnea GI: No nausea, vomiting, or diarrhea or abdominal pain. No IN bleeding or melana : No history of dysuria, frequency, urgency, or change in urine appearance NEURO: No history of headaches, numbness, weakness, or changes to vision or hearing Health maintenance: Anxiety Screening Never done Hepatitis C Screening Never done HIV Screening Never done DTaP,Tdap,Td Vaccine(1 - Tdap) Never done Lipid Screening Never done Diabetes Screening Never done Prostate Cancer Screening Discussion Never done Colorectal Cancer Screening Never done Shingrix Vaccine(1 of 2) Never done Pneumococcal Vaccine: 50+(1 of 1 - PCV) Never done Medicare Annual Wellness Visit Never done Advance Directive Discussion Never done Influenza Vaccine(1) Never done Covid-19 Vaccine(1 - season) Never done Allergies: ALLERGIES Allergen Reactions Prednisone Swelling inflamed kidney blood pressure elevated Medications: Cholecalciferol, Vitamin D3, (VITAMIN D) 25 mcg (1,000 unit) cap Take 1,000 Units by mouth once daily. Ascorbic Acid (VITAMIN C) 1,000 mg tablet Take 1,000 mg by mouth once daily. Zinc Gluconate 50 mg tablet Take 50 mg by mouth once daily. fish oil/borage/flax/om3,6,9 1 (OMEGA 3-6-9 COMPLEX ORAL) Take 1 tablet by mouth once daily. ubidecarenone Q-10 (CO Q-10) 10 mg cap Take by mouth as needed (every other day). aspirin, enteric coated (ASPIRIN, ENTERIC COATED) 81 mg EC tablet Take 81 mg by mouth once daily. atorvastatin (LIPITOR) 10 mg tablet Take 0.5 tablets by mouth once daily. levothyroxine 125 mcg cap Take 1 capsule by mouth once daily. lisinopril 2.5 mg tablet Take 1 tablet by mouth once daily. Past Medical History: PAST MEDICAL HISTORY Diagnosis Date Hyperlipemia Hypothyroidism Social History: SOCIAL HISTORY[1] Family History: Family History Problem Relation Age of Onset Heart Attack Mother Heart Attack Brother BP 152/104 Pulse 70 Temp 36.6 ?C (97.9 ?F) (Temporal) Ht 165.7 cm (5' 5.25) Wt 100.2 kg (220 lb 12.8 oz) SpO2 98% BMI 36.46 kg/m? General: Awake, alert, not in acute distress EAR SPECIALIST: Answering questions appropriately. No abnormal posturing or positioning. Speech is normal. Strength grossly intact. RESP: Clear lungs bilateral with good air entry, No increased work of breathing CVS: RRR, No murmur. Pulses 2+. GI: Abdomen is soft, non distended, non tender. No masses or hepatomegaly appreciated. Skin/Other: No rashes or lesions. HEENT: pupils equal Extremities: No peripheral edema, swelling or erythema of lower extremities. Labs: Reviewed the following: Pertinent labs as outlined above Reviewed scanned labs, he had a borderline KATHLEEN iso bronchitis,has chronic mildly elevated bili. TSH high with normal T4. Imaging: Reviewed the following: None Assessment/Plan: ASSESSMENT/PLAN: 1. Encounter to establish care - ICD9: V65.8, ICD10: Z76.89 (primary diagnosis) Reviewed history above. Very limited history as we cannot access his records. Had him sign release of records form. Will have him return for follow up and review records. - LIPID PANEL, NONFASTING - COMPLETE BLOOD COUNT - COMPREHENSIVE METABOLIC PANEL - HEMOGLOBIN A1C - HIV 1/2 COMBO WITH REFLEX TO DIFFERENTIATION - HEP REMOTE PANEL BL - VITAMIN D 25 HYDROXY 2. Screening for depression - ICD9: V79.0, ICD10: Z13.31 neg - DEPRESSION SCREE (more content not included)... Normal [facility] Comprehensive metabolic 2000 panelon 12-13-2024 Albumin [Mass/Vol] 4.8 g/dL Normal 3.9-4.9 [facility] Comment on above: Order Comment: Speci men Type: BLOOD SPECIMEN Ordering Facility: [facility] Address: [address] [place] [address] Performed By: #### L IPNF, TSHRF, , 2776-03 #### [facility] CLIA [id number] [address] [place] [address] [place] ALP [Catalytic activity/Vol] 63 U/L Normal 38-113 [facility] Comment on above: Order Comment: Speci men Type: BLOOD SPECIMEN Ordering Facility: [facility] Address: [address] [place] [address] Performed By: #### L IPNF, TSHRF, , 2776-03 #### [facility] CLIA [id number] [address] [place] [address] [place] ALT [Catalytic activity/Vol] 22 U/L Normal 10-54 [facility] Comment on above: Order Comment: Speci men Type: BLOOD SPECIMEN Ordering Facility: [facility] Address: [address] [place] [address] Performed By: #### L IPNF, TSHRF, 13427-1, 2777-1 #### [facility] CLIA [id number] [address] [place] [address] [place] Anion gap [Moles/Vol] 11 mmol/L Normal 8-15 [facility] Comment on above: Order Comment: Speci men Type: BLOOD SPECIMEN Ordering Facility: [facility] Address: [address] [place] [address] Performed By: #### L IPNF, TSHRF, 45423-8, 277- #### [facility] CLIA [id number] [address] [place] [address] [place] AST [Catalytic activity/Vol] 21 U/L Normal 14-40 [facility] Comment on above: Order Comment: Speci men Type: BLOOD SPECIMEN Ordering Facility: [facility] Address: [address] [place] [address] Performed By: #### L IPNF, TSHRF, 30429-5, 2777- #### [facility] CLIA [id number] [address] [place] [address] [place] Bilirubin [Mass/Vol] 1.3 mg/dL Normal 0.2-1.3 [facility] Comment on above: Order Comment: Speci men Type: BLOOD SPECIMEN Ordering Facility: [facility] Address: [address] [place] [address] Performed By: #### L IPNF, TSHRF, 48070-8, 2777-1 #### [facility] CLIA [id number] [address] [place] [address] [place] Calcium [Mass/Vol] 9.4 mg/dL Normal 8.5-10.2 [facility] Comment on above: Order Comment: Speci men Type: BLOOD SPECIMEN Ordering Facility: [facility] Address: [address] [place] [address] Performed By: #### L IPNF, TSHRF, , 2776-03 #### [facility] CLIA [id number] [address] [place] [address] [place] Chloride [Moles/Vol] 104 mmol/L Normal 98-107 [facility] Comment on above: Order Comment: Speci men Type: BLOOD SPECIMEN Ordering Facility: [facility] Address: [address] [place] [address] Performed By: #### L IPNF, TSHRF, , 2776-03 #### [facility] CLIA [id number] [address] [place] [address] [place] CO2 [Moles/Vol] 25 mmol/L Normal 22-30 [facility] Comment on above: Order Comment: Speci men Type: BLOOD SPECIMEN Ordering Facility: [facility] Address: [address] [place] [address] Performed By: #### L IPNF, TSHRF, , 2776-03 #### [facility] CLIA [id number] [address] [place] [address] [place] Creatinine [Mass/Vol] 0.84 mg/dL Normal 0.73-1.22 [facility] Comment on above: Order Comment: Speci men Type: BLOOD SPECIMEN Ordering Facility: [facility] Address: [address] [place] [address] Performed By: #### L IPNF, TSHRF, , 2776-03 #### [facility] CLIA [id number] [address] [place] [address] [place] eGFRcr SerPlBld CKD-EPI 2021 97 mL/min/1.73m??? Normal >=60 [facility] Comment on above: Order Comment: Speci men Type: BLOOD SPECIMEN Ordering Facility: [facility] Address: [address] [place] [address] Result Comment: Nani mated Glomerular Filtration Rate (eGFR) is calculated using the 2020 CKD-EPI creatinine equation. This equation utilizes serum creatinine, sex, and age as parameters. The creatinine assay has traceable calibration to isotope dilution-mass spectrometry. Refer to KDIGO guidelines for clinical interpretation. In patients with unstable renal function, e.g. those with acute kidney injury, the eGFR may not accurately reflect actual GFR. Performed By: #### L ELAYNE, TSH, 47537-1, 2776- #### [facility] CLIA [id number] [address] [place] [address] [place] Glucose [Mass/Vol] 94 mg/dL Normal 74-99 [facility] Comment on above: Order Comment: Fox barr Type: BLOOD SPECIMEN Ordering Facility: [facility] Address: [address] [place] [address] Result Comment: The [place] Diabetes Association (ADA) provides guidance for cutoff values for fasting glucose and random glucose. The ADA defines fasting as no caloric intake for at least 8 hours. Fasting plasma glucose results between 100 to 125 mg/dL indicate increased risk for diabetes (prediabetes). Fasting plasma glucose results greater than or equal to 126 mg/dL meet the criteria for diagnosis of diabetes. In the absence of unequivocal hyperglycemia, results should be confirmed by repeat testing. In a patient with classic symptoms of hyperglycemia or hyperglycemic crisis, random plasma glucose results greater than or equal to 200 mg/dL meet the criteria for diagnosis of diabetes. Reference: Standards of Medical Care in Diabetes 2016, [place] Diabetes Association. Diabetes Care. 2016.39(Suppl 1). Performed By: #### L ELAYNE, TSH, 07152-2, 2776-03 #### [facility] CLIA [id number] [address] [place] [address] [place] Potassium [Moles/Vol] 4.8 mmol/L Normal 3.7-5.1 [facility] Comment on above: Order Comment: Fox barr Type: BLOOD SPECIMEN Ordering Facility: [facility] Address: [address] [place] [address] Performed By: #### L IPNF, TSHRF, 95514-6, 2776-03 #### [facility] CLIA [id number] [address] [place] [address] [place] Protein [Mass/Vol] 8.0 g/dL Normal 6.3-8.0 [facility] Comment on above: Order Comment: Speci men Type: BLOOD SPECIMEN Ordering Facility: [facility] Address: [address] [place] [address] Performed By: #### L IPNF, TSHRF, 69337-3, 2776-03 #### [facility] CLIA [id number] [address] [place] [address] [place] Sodium [Moles/Vol] 140 mmol/L Normal 136-144 [facility] Comment on above: Order Comment: Speci men Type: BLOOD SPECIMEN Ordering Facility: [facility] Address: [address] [place] [address] Performed By: #### L IPNF, TSHRF, , 2776-03 #### [facility] CLIA [id number] [address] [place] [address] [place] Urea nitrogen [Mass/Vol] 12 mg/dL Normal 9-24 [facility] Comment on above: Order Comment: Speci men Type: BLOOD SPECIMEN Ordering Facility: [facility] Address: [address] [place] [address] Performed By: #### L IPNF, TSHRF, , 2776-03 #### [facility] CLIA [id number] [address] [place] [address] [place] HBV core Ab Ser Qlon 15-2 025 HBV core Ab Ql (S) Negative Normal Negative [facility] Comment on above: Order Comment: Speci men Type: BLOOD SPECIMEN Ordering Facility: [facility] Address: [address] [place] [address] Result Comment: No e vidence of current or past infection with Hepatitis B virus. Should recent infection be suspected, repeat testing may be considered 3-4 weeks after this draw. Performed By: #### 5 195-3, 68829-3, 16115-2, 23570-5 #### [facility] CLIA [id number] [address] [place] [address] [place] HBV surface Ab Ql (S)on 11-29 HBV surface Ab Qn (S) <8.00 Normal [facility] Comment on above: Order Comment: Speci men Type: BLOOD SPECIMEN Ordering Facility: [facility] Address: [address] [place] [address] Result Comment: <8 m IU/mL: No serological evidence of immunity to Hepatitis B Virus. >/= 8 to <12 mIU/mL: No serological evidence of immunity to Hepatitis B Virus. >/= 12 mIU/mL: Consistent with serological evidence of immunity to Hepatitis B Virus. Performed By: #### 5 195-3, 80048-0, 77938-7, 57223-7 #### [facility] CLIA [id number] [address] [place] [address] HBV surface Ab Ser Qlon 11-29 HBV surface Ab Ql (S) Negative Normal [facility] Comment on above: Order Comment: Speci men Type: BLOOD SPECIMEN Ordering Facility: [facility] Address: [address] [place] [address] Result Comment: No s erological evidence of immunity to Hepatitis B Virus. Performed By: #### 5 195-3, 50834-2, 23408-0, 92396-1 #### [facility] CLIA [id number] [address] [place] [address] [place] HBV surface Ag Ser Qlon 11-29 HBV surface Ag Ql (S) Negative Normal Negative [facility] Comment on above: Order Comment: Speci men Type: BLOOD SPECIMEN Ordering Facility: [facility] Address: [address] [place] [address] Performed By: #### 5 195-3, 01646-1, 35668-6, 13251-0 #### [facility] CLIA [id number] [address] [place] [address] [place] HCV Ab Ser Qlon 12-13-2024 HCV Ab Ql (S) Negative Normal Negative [facility] Comment on above: Order Comment: Speci men Type: BLOOD SPECIMEN Ordering Facility: [facility] Address: [address] [place] [address] Result Comment: The result suggests no evidence of infection with Hepatitis C virus. Should recent infection be suspected, repeat testing may be considered 4-6 weeks after this draw. Performed By: #### 1 6128-1 #### [facility] CLIA [id number] [address] [place] [address] [place] HIV 1+2 Ab IA Qlon HIV 1 and 2 Ab IA.rapid Nom (S/P/Bld) Normal [facility] Comment on above: Order Comment: Speci men Type: BLOOD SPECIMEN Ordering Facility: [facility] Address: [address] [place] [address] Result Comment: Test not indicated. Performed By: #### 5 195-3, 40649-4, 68344-1, 53558-5 #### [facility] CLIA [id number] [address] [place] [address] [place] HIV 1+2 Ab+HIV1 p24 Ag IA Ql Non-Reactive Normal Nonreactive [facility] Comment on above: Order Comment: Speci men Type: BLOOD SPECIMEN Ordering Facility: [facility] Address: [address] [place] [address] Performed By: #### 5 195-3, 82198-9, 76098-5, 03509-9 #### [facility] CLIA [id number] [address] [place] [address] [place] HIV immunoassay testing algorithm interpretation (S/P/Bld) [Interp] Normal [facility] Comment on above: Order Comment: Speci men Type: BLOOD SPECIMEN Ordering Facility: [facility] Address: [address] [place] [address] Result Comment: No e vidence of HIV-1 or HIV-2 infection. Should recent infection be suspected, repeat testing may be considered 2-3 weeks after this draw. [place] Rev. Code 3701.243(E): This information has been disclosed to you from confidential records protected from disclosure by state law. You shall make no further disclosure of this information without the specific, written, and informed release of the individual to whom it pertains or as otherwise permitted by state law. A general authorization for the release of medical or other information is not sufficient for the purpose of the release of HIV test results or diagnoses. Performed By: #### 5 195-3, 69187-8, 08967-3, 62981-1 #### [facility] CLIA [id number] [address] [place] [address] OF [facility] HbA1c (Bld)on 12-13-2024 Average glucose Estimated from glycated hemoglobin (Bld) [Mass/Vol] 108 mg/dL Normal [facility] Comment on above: Order Comment: Speci men Type: BLOOD SPECIMEN Ordering Facility: [facility] Address: [address] [place] [address] Result Comment: eAG: (Estimated average glucose) is a calculated value from HgbA1c and is hobbies and crafts sales representative of the average blood glucose level in the last 2-3 month period. Performed By: #### L ELAYNE [facility], 20280-9, 2777- #### [facility] CLIA [id number] [address] [place] [address] HbA1c (Bld) [Mass fraction] 5.4 % Normal 4.3-5.6 [facility] Comment on above: Order Comment: Speci men Type: BLOOD SPECIMEN Ordering Facility: [facility] Address: [address] [place] [address] Result Comment: Amer ican Diabetes Association guidelines indicate that patients with HgbA1c in the range 5.7-6.4% are at increased risk for development of diabetes, and intervention by lifestyle modification may be beneficial. HgbA1c greater or equal to 6.5% is considered diagnostic of diabetes. Performed By: #### L ELAYNE, TSHRF, 16267-6, 2777-1 #### [facility] CLIA [id number] [address] [place] [address] [facility] [place] LIPID PANEL, NONFASTINGon Cholesterol [Mass/Vol] 156 mg/dL Normal <200 [facility] Comment on above: Order Comment: Fox barr Type: BLOOD SPECIMEN Ordering Facility: [facility] Address: [address] [place] [address] Result Comment: <200 mg/dL, Desirable 200-239 mg/dL, Borderline high >239 mg/dL, High Performed By: #### L IPNF, TSHRF, 74190-1, 2776-03 #### [facility] CLIA [id number] [address] [place] [address] [place] HDL CHOLESTEROL, NF 38 mg/dL Low >39 [facility] Comment on above: Order Comment: Fox barr Type: BLOOD SPECIMEN Ordering Facility: [facility] Address: [address] [place] [address] Result Comment: 40-5 9 mg/dL, Acceptable >59 mg/dL, High: Negative risk factor for coronary heart disease <40 mg/dL, Low: Positive risk factor for coronary heart disease Performed By: #### L IPNF, TSHRF, , 2776-03 #### [facility] CLIA [id number] [address] [place] [address] [place] LDL CHOLESTEROL CALCULATED, NF 96 mg/dL Normal <100 [facility] Comment on above: Order Comment: Stefani cortney Type: BLOOD SPECIMEN Ordering Facility: [facility] Address: [address] [place] [address] Result Comment: <100 mg/dL, Optimal 100-129 mg/dL, Near optimal/above optimal 130-159 mg/dL, Borderline high 160-189 mg/dL, High >189 mg/dL, Very high Secondary prevention optimal LDL Cholesterol levels are recommended to be <70 mg/dL LDL cholesterol is calculated using the Encarnacion-NIH equation. Performed By: #### L IPNF, TSHRF, 18534-9, 2776-03 #### [facility] CLIA [id number] [address] [place] [address] [place] LDL/HDL RATIO, NF 2.53 mg/dL Normal <2.54 [facility] Comment on above: Order Comment: Fox barr Type: BLOOD SPECIMEN Ordering Facility: [facility] Address: [address] [place] [address] Result Comment: Rodrigue [place]: 1. National Cholesterol Education Program ATP III Guideline At-A-Glance Quick Desk Reference: National Heart, Lung, and Blood [place]. National Institutes of Health. 2001: NIH Publication No. 01-3305. 2. An International Atherosclerosis Society position paper: global recommendations for the management of dyslipidemia: executive summary, Atherosclerosis. 2014: 232(2):410-413. Performed By: #### L IPNF, TSHRF, , 2776-03 #### [facility] CLIA [id number] [address] [place] [address] [place] NON HDL CHOL, NF 118 mg/dL Normal <130 [facility] Comment on above: Order Comment: Fox barr Type: BLOOD SPECIMEN Ordering Facility: [facility] Address: [address] [place] [address] Result Comment: <130 mg/dL, Optimal 130-159 mg/dL, Near optimal/above optimal 160-189 mg/dL, Borderline high 190-219 mg/dL, High >219 mg/dL, Very high Secondary prevention optimal non HDL Cholesterol levels are recommended to be <100 mg/dL Performed By: #### L IPNF, TSHRF, , 2776-03 #### [facility] CLIA [id number] [address] [place] [address] [place] T CHOL/HDL RATIO NF 4.11 mg/dL Normal <5.10 [facility] Comment on above: Order Comment: Fox barr Type: BLOOD SPECIMEN Ordering Facility: [facility] Address: [address] [place] [address] Performed By: #### L IPNF, TSHRF, , 2776-03 #### [facility] CLIA [id number] [address] [place] [address] [place] TRIGLYCERIDES, NF 121 mg/dL Normal <150 [facility] Comment on above: Order Comment: Speci men Type: BLOOD SPECIMEN Ordering Facility: [facility] Address: [address] [place] [address] Result Comment: <150 mg/dL, Normal 150-199 mg/dL, Borderline high 200-499 mg/dL, High >499 mg/dL, Very high Performed By: #### L IPNF, TSHRF, 88689-0, 2776-1 #### [facility] CLIA [id number] [address] [place] [address] [place] VLDL CHOLESTEROL, NF 20 mg/dL Normal <30 [facility] Comment on above: Order Comment: Speci men Type: BLOOD SPECIMEN Ordering Facility: [facility] Address: [address] [place] [address] Performed By: #### L IPNF, TSHRF, , 2776-03 #### [facility] CLIA [id number] [address] [place] [address] [place] Phosphate SerPl-mCncon 12-13 Phosphate [Mass/Vol] 3.7 mg/dL Normal 2.7-4.8 [facility] Comment on above: Order Comment: Speci men Type: BLOOD SPECIMEN Ordering Facility: [facility] Address: [address] [place] [address] Performed By: #### L IPNF, TSHRF, 05294-3, 2776-1 #### [facility] CLIA [id number] [address] [place] [address] [place] TSH W/REFLEX FT4on 5 TSH Qn 3.370 m[IU]/L Normal 0.270-4.200 [facility] Comment on above: Order Comment: Speci men Type: BLOOD SPECIMEN Ordering Facility: [facility] Address: [address] [place] [address] Performed By: #### L IPNF, TSHRF, 17372-1, 2776-1 #### [facility] CLIA [id number] [address] OF [facility] MR/PAT.JOHNSONjorge luis 10-20-2024 MR/PAT.JOHNSON [facility] Medical Records Department [address] [place] [address] PAT - Anesthesia 10/20/24 1636 MR#: [id number] Acct: [id number] Name: TOD PABON Jr. Rep #: [id number] : 1960 64 From: Sridhar Alvarenga MD PCP: Dr. 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 When Was Last Pacemaker Check QUESTION #4 FULL TEXT: You/Your Family Experience fever (hyperthermia) with Anesthesia Last Oral Intake Last Oral intake: Last Oral Intake NPO since Meds taken in AM with sips of water? 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 Female No 10/20/24 14:58 HX of Motion Sickness No 10/20/24 14:58 HX of N/V After Surgery No 10/20/24 14:58 Non-Smoker Yes 10/20/24 14:58 Duration of Surgery greater No 10/20/24 14:58 than 60 minutes Number of Risk Factors 1 10/20/24 14:58 PONV Score Low Risk 10/20/24 14:58 Height Weight Height Weight: Anesthesia: Height Weight Height 5 ft 7 in 09/03/24 13:53 Respiratory Assessment Respiratory Assessment - yarn mercerizer operator helper: Respiratory Tract Infection Hx - yarn mercerizer operator helper Hx Respiratory Tract Infection No 10/20/24 14:58 STOP Sleep Apnea STOP Sleep Apnea - yarn mercerizer operator helper: STOP Sleep Apnea - yarn mercerizer operator helper Hx Hypertension Yes: CONTROLLED WITH MED 10/20/24 14:58 Hx Sleep Apnea No 10/20/24 14:58 CPAP BIPAP Do you snore loudly (louder Yes 10/20/24 14:58 than talking or can be heard Do you often feel tired/ No 10/20/24 14:58 fatigued/ sleepy during daytime? Has anyone observed you stop Yes 10/20/24 14:58 breathing during sleep? STOP Results Positive 10/20/24 14:58 QUESTION #5 FULL TEXT : Do you snore loudly (louder than talking or can be heard through closed doors)? 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 Specify any problems Hx of Preganancy in last 3 N/A 10/20/24 14:58 Months Nurse Filling Out Transfusion DSCHRIBER 10/20/24 14:58 Questions: Date: 10/20/24 10/20/24 14:58 Time: 15:02 10/20/24 14:58 Patient unable to answer at this time (ie. confused, unrespo /Reproduction History /Reproductive History - yarn mercerizer operator helper: /Reproductive Hx- yarn mercerizer operator helper Hx Now No 10/20/24 14:58 Gestational Age (in weeks): EDC: Hx Hx Para Hx Section SAB No 10/20/24 14:58 PFSH Medical History (Updated 10/20/24 @ 15:12 by Isabel Holm) Cancer Anxiety Alcohol use Thyroid disease Arthritis Varicose veins of both lower extremities High cholesterol Back pain History of diverticulitis Heartburn Non-smoker History of pain when walking History of Holter monitoring History of echocardiogram History of stress test Hypertension History of edema Cardiology follow-up encounter History of irregular heartbeat History of COVID-19 Thyroid disease Bradycardia Home Medications ???Medication ???Instructions ???Recorded ???Last Taken ???Type aspirin 81 mg capsule 81 mg PO DAILY 07/26/22 10/19/24 H istory atorvastatin 10 mg tablet 5 mg PO DAILY 07/26/22 Unknown His tory levothyroxine 125 mcg tablet 125 mcg PO DAILY 07/26/22 Unknown History omega-3 fatty acids 1,000 mg PO DAILY 07/26/22 5 History ascorbic acid (vitamin C) 500 mg 500 mg PO DAILY 08/31/24 Unknown H istory caps (more content not included)... Normal [facility] US RUQ (GB/PANCREAS)on 09-26 US RUQ (GB/PANCREAS) [place] [address] Patient: TOD PABON Phone#: : 1960 Age: 64 Gender: M Pt. Type: Out Account: [id number] Location: 052 Ordering: SHERYL Benito NICOLE Exam Date: 09/26/2024/7:43 Family Phys: Charge Code: [id number] Physician: [place] Order #: [id number] Dose#: PROCEDURE: RUQ (GB) ULTRASOUND COMPARISON: [facility], CT, CHEST W/O CON, 09/14/2024, 13:06. INDICATIONS: Liver disease FINDINGS: LIVER: There is a cyst in the right lobe the liver measuring 2.6 x 1.7 x 3.3 cm a 2nd smaller hypoechoic structure in the left lobe is not as well characterized, but appears to represent a cyst and measures 1.3 x 1.1 x 1.3 cm. Another cyst in the right lobe measures 1.8 x 1.8 x 1.7 cm. The cysts are anechoic with posterior increase through transmission. BILIARY: Normal. Normal appearing gallbladder and biliary tree. Common bile duct diameter 3 mm. Gallbladder wall measures 0.2 cm in thickness. PANCREAS: Not visualized RIGHT KIDNEY: Normal renal parenchymal echogenicity. No hydronephrosis. Right kidney measures 10.5 x 4.9 x 7.0 cm. OTHER: Negative. CONCLUSION: 1. Hepatic cysts DICTATED BY: MAURO ABIEL, MD ON 09/26/2024 AT 8:39 APPROVED BY: MAURO BEEBE MD ON 09/26/2024 AT 8:45 Normal [facility] ED MED ADMINISTRATION DETAIL on 09-22-2024 ED MED ADMINISTRATION DETAIL Scrap Collector Medication Administration Record [address] [address] [id number] 08/30/2024 Patient: TOD PABON Sex: Male : 1960 Age: 64y MEASUREMENTS: Wt: 97.5 kg, Ht/Kenan: 67.0 in, BMI: 33.67 ALLERGIES: Penicillins, prednisone Medication Ordered Medication Administration Date/Time lidocaine Viscous 16:30 08/30 lidocaine Viscous Liq 2 % 15ml UD 15 mL given. - Given Liq 2 % 15ml UD 15 16:31 Kamryn Izaguirre RKala 16:30 08/30/2024 mL (NOW x1) Kamryn Izaguirre R.N. Scanned 1 of 1 Normal [facility] ED NURSES CLINICAL NOTEon ED NURSES CLINICAL NOTE Nurse Narrative Nurse Clinical Narrative [address] [address] [id number] 08/30/2024 15:29:00 Patient: TOD PABON Sex: Male : 1960 Age: 64y Disposition: Discharge to Home Disposition Decision Time: 20:22 08/30/2024 Departure Time: 20:40 08/30/2024 TRIAGE Historian: (patient). Primary physician (Jeferson). Triage time: 15:29 08/30/2024. Acuity: LEVEL 3. Chief Complaint: (FB to the throat). This started last night. ( last night hate real fish and thinks maybe a walleye bone). SEPSIS SCREEN: NEGATIVE. SIRS criteria negative. No possible sources of infection. -- 15:38 08/30/24 EDT Brigid Padilla R.N. 15:32 08/30/24. BP: 145/94 MAP: 111. HR: 77. RR: 1. O2 saturation: 97% Temperature: 99.2 F. Pain level now 810. -- 15:32 08/30/24 LIVAN Padilla R.N.Correction -- 15:39 08/30/24 LIVAN Padilla R.N. 15:08/30/24. BP: 145/94 MAP: 111. HR: 82. RR: 17. O2 saturation: 97% Temperature: 99.2 F. Pain level now 10/08. -- 15:39 08/30/24 LIVAN Padilla R.N. Measurements: 15:38 08/30/24 Wt: 97.5 kg, Ht/Kenan: 67.0 in, BMI: 33.67 -- 15:38 08/30/24 LIVAN Padilla R.N. Medications: no known home medications -- 15:34 08/30/24 LIVAN Padilla R.N. 1 of 4 Nurse Narrative 15:08/30/24. Preferred Pharmacy: ([facility] in [place]). -- 15:38 08/30/24 LIVAN Padilla R.N. Allergies: prednisone -- 15:33 08/30/24 LIVAN Padilla R.N. Penicillins -- 15:33 08/30/24 LIVAN Padilla R.N. Home Medications/Allergy Information Source: patient -- 15:33 08/30/24 LIVAN Padilla R.N. Problems: Hypertension -- 15:34 08/30/24 LIVAN Padilla R.N. Surgeries: cysts removal -- 15:35 08/30/24 LIVAN Padilla R.N. History 15:08/30/24. PAST MEDICAL HX: Other immunizations: up-to-date. SOCIAL HX: Never smoker. Alcohol use. (rarely). No drug use. The patient has not traveled outside the [place] Infectious disease exposure: No infectious disease exposure. SELF HARM ASSESSMENT: Self harm assessment was performed. The patient answered no to the question(s) Have you recently felt down, depressed, or hopeless? and Do you have thoughts of harming or killing yourself?. FALL RISK ASSESSMENT: Fall risk assessment completed. No risk factors identified. -- 15:38 08/30/24 LIVAN Padilla R.N. 15:41 08/30/24. ABUSE ASSESSMENT: The patient answered yes to the question(s) Do you feel safe in your home? and no to the question(s) Are you afraid to go home?. Abuse denied. No suspicion of abuse. -- 15:41 08/30/24 LIVAN Padilla R.N. 2 of 4 Nurse Narrative Interventions 15:29 08/30/24. Advanced care plan discussed with patient. 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 -- 15:38 08/30/24 TONYT Brigid Padilla R.N. PHYSICAL ASSESSMENT 16:01 08/30/24. Ambulatory to room. ( pt c/o something stuck in throat pt states he ate fish last night and maybe its a bone. Resp unlabored and sats appropriate.). GENERAL / NEURO / PSYCH: Alert. Oriented X 4. Appears in no acute distress. RESPIRATORY: Respirations not labored. Chest nontender. Breath sounds within normal limits. CVS: Normal heart rate and rhythm. Capillary refill less than 2 seconds. GI / : Abdomen soft and nontender. Bowel sounds within normal limits. EXTREMITIES: Sensation intact in extremities. ROM of extremities within normal limits. BACK: Normal inspection of the neck and back. No neck or back tenderness. ROM of neck and back within normal limits. -- 16:06 08/30/24 LIVAN Izaguirre R.N. NURSING PROGRESS NOTES 15:51 08/30/24. Patient returned from CT by stretcher with nuclear medicine tech. -- 16:06 08/30/24 LIVAN Izaguirre R.N. 15:56 08/30/24. Call light placed in reach. Side rails up x 2. Bed placed in lowest position. Brakes of bed on. -- 16:06 08/30/24 LIVAN Izaguirre R.N. 16:30 08/30/24. lidocaine Viscous Liq 2 % 15ml UD 15 mL given. -- 16:31 08/30/24 LIVAN Izaguirre R.N. 18:36 08/30/24. ( Pt inquires about water and pt made aware he should be without food and water until CT scan and we are sure there will be no need for surgical interventions. Stovall given to use a pillow at this time. Pt denies any further needs at this time.). -- 19:02 08/30/24 EDT Imani Lara R.N. 20:16 08/30/24. ED physician at the patient's bedside. -- 20:16 08/30/24 EDT Floridna Adrian R.N. DISPOSITION / DISCHARGE 18:47 08/30/24. Site #1 started in the right antecubital space with an 18g angiocath using topical anesthetic with aseptic technique and good blood return; 1 attempt. Blood drawn: rainbow set tube(s). Saline lock flushed with 5 mL saline. -- 20:47 08/30/24 EDT Florinda Adrian R.N. 20:40 08/30/24. Condition at departure: improved. Discharge instructions provided and reviewed with the patient. Reviewed referral to a gastroentero (more content not included)... Normal [facility] ED ORDER SHEET (CPOE ONLY)on 09-22-2024 ED ORDER SHEET (CPOE ONLY) Order Sheet Order Sheet [address] [place] [address] [id number] 08/30/2024 Patient: TOD PABON Sex: Male : 1960 Age: 64y MEASUREMENTS: Wt: 97.5 kg, Ht/Kenan: 67.0 in, BMI: 33.67 ALLERGIES: Penicillins, prednisone MEDICATION/IV/DRIP/FLUID ORDERS Order Description Priority Entered Acknowledged Completed lidocaine Viscous Liq 2 % 15ml 16:16 08/30/2024 16:18 UD15 mL (NOW x1) Riki Dior M.D. 08/30/2024 Kamryn Izaguirre R.N. LAB ORDERS Order Description Priority Entered Acknowledged Collected Completed CBC w Diff Stat Stat 16:32 08/30/2024 16:37 08/30/2024 16:57 08/30/2024 Kamryn Gallegos M.D., R.N. [place], R.N. BMP Stat Stat 16:32 08/30/2024 16:37 08/30/2024 16:57 08/30/2024 Kamryn Gallegos M.D., R.N. [place], R.N. DIAGNOSTIC STUDY ORDERS 1 of 2 Order Sheet Order Description Priority Entered Acknowledged Completed Neck Soft Tissue 2V Stat Stat 15:46 08/30/2024 15:50 16:07 Riki Dior M.D. 08/30/2024 08/30/2024 Sabrina Cowart R.N. Order Comments: 15:46 08/30/2024: (fish bone) Riki Dior M.D. Reason for Study: Foreign Body CT Soft Tissue Neck w Cont Stat 16:32 08/30/2024 16:37 20:15 Stat Riki Dior M.D. 08/30/2024 08/30/2024 Sabrina Sherman R.N. Reason for Study: Foreign Body STAFF ORDERS Order Description Priority Entered Acknowledged Collected Completed [Electronically signed by Riki Dior M.D. (09/22/2024 19:36 EDT)] 2 of 2 Normal [facility] ED PHYSICIAN CLINICAL REPORT on 09-22-2024 ED PHYSICIAN CLINICAL REPORT Narrative Physician Clinical Narrative [address] [address] [id number] 08/30/2024 15:29:00 Patient: TOD PABON Sex: Male : 1960 Age: 64y Disposition: Discharge to Home Disposition Decision Time: 20:22 08/30/2024 Departure Time: 20:40 08/30/2024 Measurements Wt: 97.5 kg, Ht/Kenan: 67.0 in, BMI: 33.67 Initial Vital Sign Measured Time BP MAP HR RR O2Sat ETCO2 Temp Pain GCS RTS 15:34 08/30/2024 145/94 111 82 17 97% 99.2 F 8 Time Seen: 15:42 08/30/2024. HISTORY OF PRESENT ILLNESS Chief Complaint: FOREIGN BODY SENSATION IN THROAT. This started last night. There has been no pain. (patient presents with a concern that he has a fishbone stuck in his throat. States he has had pills get caught several times before but this usually resolves. He believes this happened after he was eating while I for dinner. Did not feel any bones or to any bones but he has also never had this symptom lasts this long before. He points to directly above his supraclavicular area. He is able to drink easily. Handling his secretions well. Breathing easily. Otherwise at his baseline. Denies any shortness breath, fever, chills, nausea, vomiting. Did not eat any meat. No other concern for food bolus. The only other thing he ate yesterday was a cookie). Similar symptoms previously. 1 of 17 Narrative Recent medical care: Not recently seen/assessed. REVIEW OF SYSTEMS see HPI. All other systems reviewed and are negative. PAST HISTORY See nurses notes. Hypertension Surgeries: cysts removal Medications: no known home medications Allergies: Penicillins prednisone Home Medications/Allergy Information Source: patient - Brigid Sabrina Padilla, 08/30/2024 15:33 EDT ADDITIONAL NOTES The nursing notes have been reviewed. PHYSICAL EXAM Vital Signs: Have been reviewed. Appearance: Alert. No acute distress. Head: Normal external inspection. Eyes: Pupils equal, round and reactive to light. ENT: Ears normal. Nose normal. Lips normal. Gums normal. No trismus present. Uvula midline. No pharyngeal erythema, mouth ulcerations, tonsillar exudate, peritonsillar mass or muffled or hoarse voice. No drooling. 2 of 17 Narrative Neck: Trachea midline. No adenopathy. CVS: Normal heart rate and rhythm. Heart sounds normal. Pulses normal. Respiratory: No respiratory distress. Breath sounds normal. Abdomen: Soft and nontender. Extremities: Extremities exhibit normal ROM. Extremities nontender. LABS, X-RAYS, AND EKG Laboratory Tests: BMP with eGFR Final GARCIA: 08/30/2024 16:45:00 EDT MsgRcvd: 08/30/2024 17:09 EDT Lab Test Result Reference Status Received Comments BASIC 08/30/2024 BMP with eGFR Final METABOLIC 17:09 EDT PANEL 08/30/2024 SODIUM 139 mmol/l 136 - 145 Final 17:09 EDT 08/30/2024 POTASSIUM 4.1 mmol/L 3.5 - 5.1 Final 17:09 EDT 08/30/2024 CHLORIDE 103 mmol/L 98 - 107 Final 17:09 EDT 08/30/2024 CO2 29.2 mmol/L 21.0 - 32.0 Final 17:09 EDT 08/30/2024 GLUCOSE 96 mg/dl 74 - 106 Final 17:09 EDT 08/30/2024 BUN 13 mg/dl 7 - 18 Final 17:09 EDT 08/30/2024 CREATININE 0.90 mg/dl 0.70 - 1.30 Final 17:09 EDT 3 of 17 Narrative Lab Test Result Reference Status Received Comments 08/30/2024 CALCIUM 9.1 mg/dl 8.5 - 10.1 Final 17:09 EDT 08/30/2024 ANION GAP 11 mmol/L 10 - 20 Final 17:09 EDT 08/30/2024 AGE 64 years Final 17:09 EDT 08/30/2024 eGFR >60 ML/MINUTE 60 - 999 Final 17:09 EDT 4 of 17 Narrative Lab Test Result Reference Status Received Comments ACCORDING TO THE NATIONAL KIDNEY DISEASE EDUCATION PROGRAM(NKDE), A NORMAL eGFR IS A VALUE GREATER THAN OR EQUAL TO 60 ML/MIN/1.73 SQ METERS. 08/30/2024 CHRONIC KIDNEY eGFR(AA) >60 ML/MINUTE 60 - 999 Final 17:09 EDT DISEASE: <60mL/MIN/1.73 SQ METERS KIDNEY FAILURE: <15mL/MIN/1.73 SQ METERS THIS TEST SHOULD ONLY BE USED FOR PATIENTS 18 YEARS OF AGE AND OLDER. CBC + DIFF Final GARCIA: 08/30/2024 16:45:00 EDT MsgRcvd: 08/30/2024 17:13 EDT Lab Test Result Reference Status Received Comments 08/30/2024 17:13 CBC-COMPLETE CBC + DIFF Final EDT BLOOD COUNT 5 of 17 Narrative Lab Test Result Reference Status Received Comments 08/30/2024 17:13 WBC 8.1 x 10/UL 4.5 - 10.8 Final EDT 08/30/2024 17:13 RBC 4.83 x 10/UL 4.50 - 6.00 Final EDT 08/30/2024 17:13 HEMOGLOBIN 15.3 g/dl 13.0 - 17.5 Final EDT 08/30/2024 17:13 HEMATOCRIT 42.3 % 40.0 - 52.0 Final EDT 08/30/2024 17:13 MCV 88 fl 81 - 98 Final EDT 08/30/2024 17:13 MCH 32 pg 27 - 33 Final EDT 08/30/2024 17:13 MCHC 36 X10 3 32 - 36 Final EDT 08/30/2024 17:13 RDW/CV 12.7 % 12.0 - 15.6 Final EDT 08/30/2024 17:13 PLATELET 188 x10/UL (more content not included)... Normal [facility] ED SUPER BILLon 09-22-2024 ED SUPER BILL [address] [address] [id number] 08/30/2024 Patient: TOD PABON Sex: Male : 1960 Age: 64y Item Professional Category Description Facility Code Code Quantity Fee Total Nurse/E/M EMERGENCY 923562 1 $0.00 $0.00 DEPARTMENT VISIT HIGH/URGENT SEVERITY (66261-89) Grand Total $0.00 Providers Oriana Gallegos D.O. Chief Complaint FOREIGN BODY SENSATION IN THROAT. Principal Diagnoses foreign body sensation in throat. 1 of 1 Normal [facility] ED VISIT SUMMARYon ED VISIT SUMMARY Visit Overview Visit Overview [address] [address] [id number] 08/30/2024 Patient: TOD PABON Sex: Male : 1960 Age: 64y 09/22/2024 07:36 PM EDT ED Arrival:15:29 08/30/2024 EDT Status: Recent Travel:no Language:eng Adv Directive: Isolation Status: Ethnicity:N Fall Risk:no risk Infectious Disease Exposure:no Measurements:5'7 / 170.2 Self-Harm Status:no risk Sepsis Screen:negative cm 215.0 lb / 97.5 kg Chief Complaint:(FB to the throat), (last night hate real fish and thinks maybe a walleye bone), and ([place]) ALLERGIES Penicillins prednisone HOME MEDICATIONS None PAST MEDICAL HISTORY / PROBLEMS 1 of 3 Visit Overview Hypertension Other immunizations: up-to-date See nurses notes PAST SURGICAL HISTORY cysts removal SOCIAL HISTORY Smoking status: No Alcohol use: Yes Drug use: No ED COURSE MEDICATIONS GIVEN IN EMERGENCY DEPARTMENT 16:30 08/30/24 lidocaine Viscous Liq 2 % 15ml UD 15 mL IV SITE INFORMATION INTAKE OUTPUT REASSESMENT (most recent) 16:01 08/30/24. Ambulatory to room. ( pt c/o something stuck in throat pt states he ate fish last night and maybe its a bone. Resp unlabored and sats appropriate.). GENERAL / NEURO / PSYCH: Alert. Oriented X 4. Appears in no acute distress. RESPIRATORY: Respirations not labored. Chest nontender. Breath sounds within normal limits. CVS: Normal heart rate and rhythm. Capillary refill less than 2 seconds. GI / : Abdomen soft and nontender. Bowel sounds within normal limits. EXTREMITIES: Sensation intact in extremities. ROM of extremities within normal limits. BACK: Normal inspection of the neck and back. No neck or back tenderness. ROM of neck and back within normal limits. VITAL SIGNS First Vitals Last Vitals Temp 15:34 08/30/24 99.2 F Temp 15:34 08/30/24 99.2 F 2 of 3 Visit Overview First Vitals Last Vitals BP 15:34 08/30/24 145/94 BP 15:34 08/30/24 145/94 HR 15:08/30/24 82 HR 15:34 08/30/24 82 RR 15:34 08/30/24 17 RR 15:34 08/30/24 17 O2 Sat 15:34 08/30/24 97% O2 Sat 15:34 08/30/24 97% Pain 15:34 08/30/24 8 Pain 15:34 08/30/24 8 ETCO2 15:34 08/30/24 ETCO2 15:34 08/30/24 GCS 15:34 08/30/24 GCS 15:34 08/30/24 RTS 15:34 08/30/24 RTS 15:34 08/30/24 PROCEDURES NURSING INTERVENTIONS LABS / STUDIES LABS / STUDIES ORDERED BMP CBC w Diff CT Soft Tissue Neck w Cont Neck Soft Tissue 2V CLINICAL IMPRESSION POSSIBLE ESOPHAGEAL FOREIGN BODY: BONE 3 of 3 Normal [facility] ED VITALS FLOW SHEET 09-22 ED VITALS FLOW SHEET Vitals Vital Sign Flow Sheet [address] [place] [address] [id number] 08/30/2024 Patient: TOD PABON Sex: Male : 1960 Age: 64y Measurements Wt: 97.5 kg, Ht/Kenan: 67.0 in, BMI: 33.67 Measured Time BP MAP HR RR O2Sat ETCO2 Temp Pain GCS RTS 15:34 08/30/2024 145/94 111 82 17 97% 99.2 F 8 1 of 1 Normal [facility] CT CHEST W/O CONTRASTon 08-29 CT CHEST W/O CONTRAST [address] [address] Patient: TOD PABON. Phone#: : 1960 Age: 64 Gender: M Pt. Type: Out Account: [id number] Location: [facility] Ordering: MAY Benito NICOLE Exam Date: 09/14/2024/13:06 Family Phys: Charge Code: [id number] Physician: [place] Order #: [id number] Dose#: [id number] PROCEDURE: CT CHEST WITHOUT CONTRAST COMPARISON: [facility], , CHEST 2 VIEWS, 09/07/2024, 8:04. INDICATIONS: Sick sinus syndrome. TECHNIQUE: CT images were created without the administration of contrast material. All CT scans at this facility use dose modulation, iterative reconstruction, and/or weight based dosing when appropriate to reduce radiation dose to as low as reasonably achievable. IV CONTRAST: No IV contrast used,0ml TOTAL DOSE: 8.10 CTDIvol(mGy) FINDINGS: Evaluation of soft tissues is limited in the absence of intravenous contrast LUNGS: Normal. No visible pulmonary disease. No pulmonary nodule to correspond to the radiograph finding. The finding on the radiograph is most consistent with super position of osseous structures. VASCULATURE: Unremarkable in size ALEXANDR: Limited evaluation for adenopathy in the absence of contrast MEDIASTINUM: Normal. No mass or adenopathy. CARDIAC: Coronary artery calcifications PLEURA: Normal. No mass or effusion. AORTA: Normal. No aneurysm. CHEST WALL: Normal. No mass or axillary adenopathy. LIMITED ABDOMEN: Low-attenuation lesions in the liver, incompletely characterized in the absence of contrast. BONES: Degenerative changes of the lower cervical spine. Anterior osteophytes present. OTHER: Negative. CONCLUSION: Continued Report - Page 2 of 2 Patient: TOD PABON Phone#: : 1960 Age: 64 Gender: M Pt. Type: Out Account: [id number] Location: [facility] Ordering: MayMarcio [place] Exam Date: 09/14/2024/13:06 Family Phys: Charge Code: [id number] Physician: [place]ack Order #: [id number] Dose#: [id number] 1. No acute pulmonary parenchymal abnormality. No pulmonary nodule to correspond to the radiograph finding. The radiograph finding is most consistent with overlapping osseous structures. 2. Low-attenuation lesions in the liver, incompletely characterized without contrast. Dictated by: Mauro Beebe MD on 09/14/2024 at 17:39 Approved by: Mauro Beebe MD on 09/15/2024 at 14:07 Normal [facility] CBC + DIFFon 09-07-2024 Baso # 0.04 x10EE3/UL Normal 0.00 - 0.10 [facility] Comment on above: Performed By: #### 2 [id number] ####[facility],[address] [place] [address] Basophils/100 WBC (Bld) 0.6 % Normal 0.0 - 2.0 [facility] Comment on above: Performed By: #### 2 [id number] ####[facility],[address] [place] [address] CBC + DIFF Normal [facility] Comment on above: Result Comment: CBC- COMPLETE BLOOD COUNT Performed By: #### 2 [id number] ####[facility],[address] [place], [place] [id number] EO # 0.12 x10EE3/UL Normal 0.00 - 0.50 [facility] Comment on above: Performed By: #### 2 [id number] ####[facility],[address] [place] [address] Eosinophils/100 WBC (Bld) 2.1 % Normal 0.0 - 7.0 [facility] Comment on above: Performed By: #### 2 [id number] ####[facility],[address] [place], [place] [id number] Erythrocyte distribution width (RBC) [Ratio] 13.0 % Normal 12.0 - 15.6 [facility] Comment on above: Performed By: #### 2 13253 ####[facility],[address] [place] [address] Hematocrit (Bld) [Volume fraction] 45.7 % Normal 40.0 - 52.0 [facility] Comment on above: Performed By: #### 2 63094 ####[facility],[address] [place] [address] Hemoglobin (Bld) [Mass/Vol] 16.1 g/dL Normal 13.0 - 17.5 [facility] Comment on above: Performed By: #### 2 79354 ####[facility],[address] [place] [address] Lymph # 1.43 x10EE3/UL Normal 0.80 - 2.80 [facility] Comment on above: Performed By: #### 2 50052 ####[facility],[address] [place] [address] Lymphocytes/100 WBC (Bld) 24.3 % Normal 20.0 - 45.0 [facility] Comment on above: Performed By: #### 2 80618 ####[facility],[address] [place] [address] MANUAL DIFF N/A Normal [facility] Comment on above: Performed By: #### 2 94234 ####[facility],[address] [place] [address] MCH (RBC) [Entitic mass] 31 pg Normal 27 - 33 [facility] Comment on above: Performed By: #### 2 32963 ####[facility],[address] [place] [address] MCHC 35 X10 3 Normal 32 - 36 [facility] Comment on above: Performed By: #### 2 47534 ####[facility],[address] [place] [address] MCV (RBC) [Entitic vol] 88 fL Normal 81 - 98 [facility] Comment on above: Performed By: #### 2 71676 ####[facility],[address] [place] [address] [place] # 0.50 x10EE3/UL Normal 0.20 - 1.00 [facility] Comment on above: Performed By: #### 2 35617 ####[facility],[address] [place] [address] MONOS % 8.5 % Normal 0.0 - 10.0 [facility] Comment on above: Performed By: #### 2 76262 ####[facility],[address] [place] [address] Morphology Shahbaz (Bld) [Interp] N/A Normal [facility] Comment on above: Performed By: #### 2 67296 ####[facility],[address] [place] [address] Neut # 3.80 x10EE3/UL Normal 1.50 - 7.10 [facility] Comment on above: Performed By: #### 2 79584 ####[facility],[address] [place] [address] Neutrophils/100 WBC (Bld) 64.5 % Normal 46.0 - 76.0 [facility] Comment on above: Performed By: #### 2 14820 ####[facility],[address] [place] [address] PLATELET 227 x10EE3/UL Normal 150 - 450 [facility] Comment on above: Performed By: #### 2 04257 ####[facility],[address] [place] [address] Platelet mean volume (Bld) [Entitic vol] 8.7 fL Normal 6.4 - 10.5 [facility] Comment on above: Result Comment: AUTO MATED DIFFERENTIAL Performed By: #### 2 83521 ####[facility],[address] [place] [address]842 RBC 5.20 x 10EE6/UL Normal 4.50 - 6.00 [facility] Comment on above: Performed By: #### 2 19052 ####[facility],[address] [place] [address] WBC 5.9 x 10EE3/UL Normal 4.5 - 10.8 [facility] Comment on above: Performed By: #### 2 04045 ####[facility],[address] [place] [address] CHEST 2 VIEWSon 09-07-2024 CHEST 2 VIEWS [place] [address] Patient: TOD PABON Phone#: : 1960 Age: 64 Gender: M Pt. Type: ER Account: [id number] Location: [facility] Ordering: AUNG [place] Exam Date: 09/07/2024/8:04 Family Phys: SHERYL NICOLE Charge Code: [id number] Physician: [place] Order #: [id number] Dose#: PROCEDURE: X-RAY CHEST 2 VIEWS COMPARISON: None. INDICATIONS: Heart Palpitations. FINDINGS: LUNGS: There is a focal opacity seen only on lateral view in the posterior sulcus, it measures 1.4 x 1.7 cm. . VASCULATURE: Normal. Unremarkable pulmonary vasculature. CARDIAC: Normal. No cardiac silhouette abnormality or cardiomegaly. MEDIASTINUM: Normal. No visible mass or adenopathy. PLEURA: Normal. No effusion or pleural thickening. BONES: Normal. No fracture or visible bony lesion. OTHER: Monitoring leads project across the thorax CONCLUSION: 1. Focal opacity in the posterior sulcus seen only on the lateral view. This may represent a nodule, infiltrate versus overlapping osseous structures. Recommend follow-up CT thorax for further characterization. Dictated by: Mauro Beebe MD on 09/07/2024 at 8:08 Approved by: Mauro Beebe MD on 09/07/2024 at 8:15 Normal [facility] CMP with eGFRon 09-07-2024 AGE 64 years Normal [facility] Comment on above: Performed By: #### 2 [id number] #### [facility],[address] [place] [address]930 Albumin [Mass/Vol] 3.7 g/dL Normal 3.4 - 5.0 [facility] Comment on above: Performed By: #### 2 [id number] #### [facility],[address] [place] [address] 03164 Albumin/Globulin [Mass ratio] 0.9 {ratio} Normal 0.9 - 1.6 [facility] Comment on above: Performed By: #### 2 03915 #### [facility],[address] [place] [address] 05795 ALK PHOS 63 U/L Normal 46 - 116 [facility] Comment on above: Performed By: #### 2 [id number] #### [facility],[address] [place] [address] 65816 ALT [Catalytic activity/Vol] 29 U/L Normal 16 - 63 [facility] Comment on above: Performed By: #### 2 31705 #### [facility],[address] [place] [address] 94824 Anion gap [Moles/Vol] 14 mmol/L Normal 10 - 20 [facility] Comment on above: Performed By: #### 2 22304 #### [facility],[address] [place] [address] 70552 AST [Catalytic activity/Vol] 18 U/L Normal 15 - 37 [facility] Comment on above: Performed By: #### 2 19616 #### [facility],[address] [place] [address] 99554 B/C RATIO 14 ratio Normal 0 - 30 [facility] Comment on above: Performed By: #### 2 18056 #### [facility],[address] [place] [address] 18976 Bilirubin [Mass/Vol] 1.1 mg/dL High 0.2 - 1.0 [facility] Comment on above: Performed By: #### 2 10804 #### [facility],[address] [place] [address] 86215 Calcium [Mass/Vol] 8.5 mg/dL Normal 8.5 - 10.1 [facility] Comment on above: Performed By: #### 2 62625 #### [facility],[address] [place] [address] 10788 Chloride [Moles/Vol] 102 mmol/L Normal 98 - 107 [facility] Comment on above: Performed By: #### 2 94589 #### [facility],[address] [place] [address] 94702 CMP with eGFR Normal [facility] Comment on above: Result Comment: COMP REHENSIVE METABOLIC PANEL Performed By: #### 2 57758 #### [facility],[address] [place] [address] 06758 CO2 [Moles/Vol] 26.0 mmol/L Normal 21.0 - 32.0 [facility] Comment on above: Performed By: #### 2 45337 #### [facility],[address] [place] [address] 79189 Creatinine [Mass/Vol] 0.85 mg/dL Normal 0.70 - 1.30 [facility] Comment on above: Performed By: #### 2 16631 #### [facility],[address] [place] [address] 28889 GFR/1.73 sq M.predicted among non-blacks MDRD (S/P/Bld) [Vol rate/Area] mL/min/{1.73_m2} Normal 60 - 999 [facility] Comment on above: Performed By: #### 2 99293 #### [facility],[address] [place] [address] 70255 Result Comment: ACCO RDING TO THE NATIONAL KIDNEY DISEASE EDUCATION PROGRAM(NKDE), A NORMAL eGFR IS A VALUE GREATER THAN OR EQUAL TO 60 ML/MIN/1.73 SQ METERS. CHRONIC KIDNEY DISEASE: <60mL/MIN/1.73 SQ METERS KIDNEY FAILURE: <15mL/MIN/1.73 SQ METERS THIS TEST SHOULD ONLY BE USED FOR PATIENTS 18 YEARS OF AGE AND OLDER. Globulin (S) [Mass/Vol] 4.3 g/dL High 1.5 - 3.8 [facility] Comment on above: Performed By: #### 2 31245 #### [facility],[address] [place] [address] 79333 Glucose [Mass/Vol] 96 mg/dL Normal 74 - 106 [facility] Comment on above: Performed By: #### 2 59574 #### [facility],[address] [place] [address] 21593 Potassium [Moles/Vol] 4.0 mmol/L Normal 3.5 - 5.1 [facility] Comment on above: Performed By: #### 2 64474 #### [facility],[address] [place] [address] 51999 Protein [Mass/Vol] 8.0 g/dL Normal 6.4 - 8.2 [facility] Comment on above: Performed By: #### 2 62653 #### [facility],[address] [place] [address] 36495 Sodium [Moles/Vol] 138 mmol/L Normal 136 - 145 [facility] Comment on above: Performed By: #### 2 17470 #### [facility],[address] [place] [address] 19682 Urea nitrogen [Mass/Vol] 12 mg/dL Normal 7 - 18 [facility] Comment on above: Performed By: #### 2 49913 #### [facility],[address] [facility] [address] CORONAVIRUS (SARS) ANTIGEN T Jerry 09-07-2024 EXTERNAL QC DONE? YES Normal [facility] Comment on above: Performed By: #### 2 87826 #### [facility],[address] [place] [address],[facility] [address] INTERNAL CONTROL PASS Normal [facility] Comment on above: Performed By: #### 2 96052 #### [facility],[address],[place] [address] SARS ANTIGEN Negative Normal NORMAL: NEGATIVE [facility] Comment on above: Performed By: #### 2 22266 #### [facility],[address] [place] [address],[facility] [address] SEND TO ? NO Normal [facility] Comment on above: Result Comment: SARS -CoV-2 THIS TEST IS BEING USED UNDER THE FDA EUA PROCEDURE. THIS ASSAY HAS BEEN VALIDATED AT [facility] FOR USE WITH NASAL AND NASOPHARYNGEAL SWAB SPECIMENS. INTERPRETIVE DATA TEST RESULTS SHOULD ALWAYS BE CONSIDERED IN THE CONTEXT OF CLINICAL OBSERVATIONS AND EPIDEMIOLOGICAL DATA IN MAKING FINAL DIAGNOSIS AND PATIENT MANAGEMENT DECISIONS. PATIENT MANAGEMENT SHOULD FOLLOW CURRENT CDC GUIDELINES. THE JASS SARS ANTIGEN MATTHEW DOES NOT DIFFERENTIATE BETWEEN SARS-CoV & SARS-CoV-2. A POSITIVE TEST RESULT INDICATES THE PRESENCE OF SARS-CoV-2 NUCLEOCAPSID PROTEIN ANTIGEN, AND THE PATIENT IS INFECTED WITH THE VIRUS AND PRESUMED TO BE CONTAGIOUS. A NEGATIVE TEST RESULT FOR THIS TEST MEANS THAT SARS-CoV-2 NUCLEOCAPSID PROTEIN ANTIGEN WAS NOT PRESENT IN THE SPECIMEN ABOVE THE LIMIT OF DETECTION. HOWEVER, A NEGATIVE RESULT DOES NOT RULE OUT COVID-19 AND SHOULD NOT BE USED THE SOLE BASIS FOR TREATMENT OR PATIENT MANAGEMENT DECISIONS. A NEGATIVE RESULT DOES NOT EXCLUDE THE POSSIBILITY OF COVID-19. NEGATIVE RESULTS, FROM PATIENTS WITH SYMPTOM ONSET BEYOND FIVE DAYS, SHOULD BE TREATED PRESUMPTIVE AND CONFIRMATION WITH A MOLECULAR ASSAY, IF NECESSARY, FOR PATIENT MANAGEMENT, MAY BE PERFORMED. WHEN DIAGNOSTIC TESTING IS NEGATIVE, THE POSSIBLILTY OF A FALSE NEGATIVE RESULT SHOULD BE CONSIDERED IN THE CONTEXT OF A PATIENT'S RECENT EXPOSURES AND THE PRESENCE OF CLINICAL SIGNS AND SYMPTOMS CONSISTENT WITH COVID-19. THE POSSIBILITY OF A FALSE NEGATIVE RESULT SHOULD ESPECIALLY BE CONSIDERED IF THE PATIENT'S RECENT EXPOSURES OR CLINICAL PRESENTATION INDICATE THAT COVID-19 IS LIKELY, AND DIAGNOSTIC TESTS FOR OTHER CAUSES OF ILLNESS (e.g., OTHER RESPIRATORY ILLNESS) ARE NEGATIVE. IF COVID-19 IS STILL SUSPECTED BASED ON EXPOSURE HISTORY TOGETHER WITH OTHER CLINICAL FINDINGS, RE-TESTING SHOULD BE CONSIDERED BY HEALTHCARE PROVIDERS IN CONSULTATION WITH PUBLIC HEALTH AUTHORITIES. Performed By: #### 2 90730 #### [facility],[address] [place] [address] 42551 ED MED ADMINISTRATION DETAIL on 09-07-2024 ED MED ADMINISTRATION DETAIL Scrap Collector Medication Administration Record [address] [address] [id number] 09/07/2024 Patient: TOD PABON Sex: Male : 1960 Age: 64y MEASUREMENTS: Wt: 95.3 kg, Ht/Kenan: 67.0 in, BMI: 32.89 ALLERGIES: Penicillins, prednisone Medication Ordered Medication Administration Date/Time 1 of Normal [facility] ED NURSES CLINICAL NOTEon ED NURSES CLINICAL NOTE Nurse Narrative Nurse Clinical Narrative [address] [address] [id number] 09/07/2024 07:21:00 Patient: TOD PABON Sex: Male : 1960 Age: 64y Disposition: Discharge to Home Disposition Decision Time: 09:41 09/07/2024 Departure Time: 09:50 09/07/2024 TRIAGE Arrived by private vehicle. Historian: (patient). Accompanied by family. Patient has a primary care physician. Primary physician (jeferson). Triage time: 07:29 09/07/2024. Acuity: LEVEL 2. Chief Complaint: (palpitations). This started yesterday. ( pt is on doxycycline for a possible strep throat infection. pt states that yesterday he became diaphoretic and felt his heart racing. pt thought it would go away overnight but it did not.). SEPSIS SCREEN: NEGATIVE. SIRS criteria negative. No possible sources of infection. -- 07:37 09/07/24 EDT Petey Dozier R.N. 07:09/07/24. BP: 155/108 MAP: 124. HR: 83. RR: 14. O2 saturation: 98% Temperature: 97.8 F. Pain level now 0/10. -- 07:35 09/07/24 EDT Petey Dozier R.N. Measurements: 07:37 09/07/24 Wt: 95.3 kg, Ht/Kenan: 67.0 in, BMI: 32.89 -- 07:37 09/07/24 EDT Petey Dozier R.N. Medications: atorvastatin 10 mg tablet -- 07:09/07/24 TONYT Petey Dozier R.N. levothyroxine 125 mcg tablet -- 07:09/07/24 EDT Petey Dozier R.N. 1 of 3 Nurse Narrative Allergies: prednisone -- 07:09/07/24 TONYT Petey Dozier R.N. Penicillins -- 07:09/07/24 EDT Petey Dozier R.N. Problems: Hypertension -- 07:09/07/24 TONYT Petey Dozier R.N. Bradycardia -- 07:09/07/24 EDT Petey Dozier R.N. Surgeries: cysts removal -- 07:09/07/24 LIVAN Dozier R.N. History 07:29 09/07/24. SOCIAL HX: Never smoker. No alcohol use or drug use. The patient has not traveled outside the [place] Infectious disease exposure: No infectious disease exposure. ABUSE ASSESSMENT: Abuse denied. SELF HARM ASSESSMENT: Self harm assessment was performed. The patient answered no to the question(s) Do you have thoughts of harming or killing yourself? and Do you have a plan for harming or killing yourself?. FALL RISK ASSESSMENT: Fall risk assessment completed. No risk factors identified. -- 07:37 09/07/24 LIVAN Dozier R.N. Interventions 07:29 09/07/24. Advanced care plan discussed with patient. Patient does not have advanced directive. -- 07:37 09/07/24 EDT Petey Dozier R.N. PHYSICAL ASSESSMENT 07:44 09/07/24. Ambulatory to room. GENERAL / NEURO / PSYCH: Alert. Oriented X 4. Appears in no acute distress. 2 of 3 Nurse Narrative HEENT: Mucous membranes are pink. RESPIRATORY: Respirations not labored. Chest nontender. Breath sounds within normal limits. CVS: Normal sinus rhythm noted. Heart sounds within normal limits. Pulses within normal limits. Capillary refill less than 2 seconds. GI / : Abdomen soft and nontender. EXTREMITIES: No lower extremity edema. SKIN: Skin is warm and dry. Normal skin turgor. Skin is non-tender. -- 07:54 09/07/24 EDT Imani Lara R.N. NURSING PROGRESS NOTES 07:40 09/07/24. Site #1 started in the right antecubital space with a 20g angiocath with aseptic technique and good blood return; 1 attempt. Blood drawn: rainbow set tube(s). Labeled in the presence of the patient and sent to the lab. Saline lock flushed with 10 mL saline. -- 07:50 09/07/24 EDT Imani Lara R.N. 07:51 09/07/24. BP: 146/109 while lying MAP: 121. HR: 77. 07:51 09/07/24. BP: 145/99 while sitting MAP: 114. HR: 76. 07:51 09/07/24. BP: 140/103 while standing MAP: 115. HR: 79. -- 07:51 09/07/24 EDT Imani Lara R.N. 08:48 09/07/24. BP: 139/95 MAP: 110 mmHg. HR: 71 bpm. -- 09:01 09/07/24 EDT Imani Lara R.N. 08:51 09/07/24. HR: 76 bpm. O2 saturation: 93%. -- 09:01 09/07/24 EDT Imani Lara R.N. DISPOSITION / DISCHARGE 09:33 09/07/24. BP: 152/99 MAP: 116 mmHg. HR: 81 bpm. -- 09:49 09/07/24 EDT Imani Lara R.N. 09:36 09/07/24. HR: 83 bpm. O2 saturation: 96%. -- 09:49 09/07/24 EDT Imani Lara R.N. 09:49 09/07/24. Site #1 removed upon discharge. Catheter intact. Bandage applied. -- 09:49 09/07/24 EDT Imani Lara R.N. 09:50 09/07/24. Condition at departure: unchanged. No learning barriers present. Reviewed medication(s) side effects, precautions, dosing and course information. Prescription(s) given to the patient and sent electronically to pharmacy. Patient verbalized understanding. Written instructions provided in Beninese. The patient was discharged by the physician. The patient was discharged home and accompanied by business machine mechanic. The patient left ambulatory and via private vehicle. Dielectric Machine Operator driving. -- 09:50 09/07/24 EDT Imani Lara R.N. Departure time: 09:50 09/07/2024. -- 09:50 09/07/24 EDT Imani Lara R.N. (Electronically signed by Imani Lara R.N. 09/07/24 09:50:57 EDT) Generated (more content not included)... Normal [facility] ED ORDER SHEET (CPOE ONLY)on 09-07-2024 ED ORDER SHEET (CPOE ONLY) Order Sheet Order Sheet [address] [place] [address] [id number] 09/07/2024 Patient: TOD PABON Sex: Male : 1960 Age: 64y MEASUREMENTS: Wt: 95.3 kg, Ht/Kenan: 67.0 in, BMI: 32.89 ALLERGIES: Penicillins, prednisone MEDICATION/IV/DRIP/FLUID ORDERS Order Description Priority Entered Acknowledged Completed LAB ORDERS Order Description Priority Entered Acknowledged Collected Completed CBC w Diff Stat Stat 07:32 09/07/2024 07:33 09/07/2024 07:49 09/07/2024 Aung Napoles, Imani Lara, Imani Lara D.O. R.N. R.N. CMP Stat Stat 07:32 09/07/2024 07:33 09/07/2024 07:49 09/07/2024 Imani Bejarano Sarah Fechuch, D.O. R.N. RMarcioN. BNP Stat Stat 07:32 09/07/2024 07:33 09/07/2024 07:49 09/07/2024 Imani Bejarano Sarah Fechuch, D.O. R.N. R.NMarcio Troponin-I Stat Stat 07:32 09/07/2024 07:33 09/07/2024 07:49 09/07/2024 Imani Bejarano Sarah Fechuch, 1 of 3 Order Sheet Melecio.Jennifer FinkN. R.NMarcio EKG - ED Stat Stat 07:32 09/07/2024 07:33 09/07/2024 07:34 09/07/2024 Imani Bejarano Sarah Fechuch, D.O. R.NMarcio R.N. Magnesium Stat Stat 07:32 09/07/2024 07:33 09/07/2024 07:49 09/07/2024 Imani Bejarano Sarah Fechuch, D.O. R.NMarcio R.N. TSH Stat Stat 07:32 09/07/2024 07:33 09/07/2024 07:49 09/07/2024 Imani Bejarano Sarah Fechuch, D.O. R.NMarcio R.NMarcio Rapid COVID (SARS) Stat 08:39 09/07/2024 08:50 09/07/2024 08:55 09/07/2024 ANTIGEN TEST Stat Imani Bejarano Sarah Fechuch, D.O. R.NMarcio R.NMarcio Flu Swab (Influenzae Stat 08:39 09/07/2024 08:50 09/07/2024 08:55 09/07/2024 AAg) Stat Imani Bejarano Sarah Fechuch, D.O. R.N. R.N. RSV Stat Stat 08:39 09/07/2024 08:50 09/07/2024 08:55 09/07/2024 Imani Bejarano, Imani Lara D.O. R.NMarcio R.N. DIAGNOSTIC STUDY ORDERS Order Description Priority Entered Acknowledged Completed Chest 2V Stat Stat 07:40 09/07/2024 08:50 Aung Napoles D.O. 09/07/2024 Imani Lara, 2 of 3 Order Sheet R.N. Reason for Study: Shortness of Breath STAFF ORDERS Order Description Priority Entered Acknowledged Collected Completed [Electronically signed by Aung Napoles D.O. (09/07/2024 18:45 EDT)] 3 of 3 Normal [facility] ED PHYSICIAN CLINICAL REPORT on 09-07-2024 ED PHYSICIAN CLINICAL REPORT Narrative Physician Clinical Narrative [address] [address] [id number] 09/07/2024 07:21:00 Patient: TOD PABON Sex: Male : 1960 Age: 64y Disposition: Discharge to Home Disposition Decision Time: 09:41 09/07/2024 Departure Time: 09:50 09/07/2024 Measurements Wt: 95.3 kg, Ht/Kenan: 67.0 in, BMI: 32.89 Initial Vital Sign Measured Time BP MAP HR RR O2Sat ETCO2 Temp Pain GCS RTS 07:34 09/07/2024 82 98% Time Seen: 07:31 09/07/2024. Arrived- By private vehicle. Historian- patient. HISTORY OF PRESENT ILLNESS Chief Complaint: PALPITATIONS. It is described as a fast heart beat. Not described as slow heart rate, missing beats or dizziness. The patient did not lose consciousness. The patient did not feel like might pass out. The patient complains of weakness. This started today c/o fatigue, HR fast for hime and is still present. (this am after got up). Did not begin during emotional upset, sleep, rest or exertion. No history of caffeine use prior to onset, decongestants use prior to onset, cocaine use prior to onset or amphetamine use prior to onset. No chest pain or discomfort, difficulty breathing, fainting episodes or dizziness. No tingling or muscle spasms. The patient has experienced sweating episodes (yesterday while working). ( Usually has a slow rate, today faster than normal). Similar symptoms previously. 1 of 20 Narrative REVIEW OF SYSTEMS GI: No nausea, abdominal pain, black stools, vomiting or diarrhea. No bloody stools. EYES: No blurred vision. THROAT: No sore throat. : No abnormal bleeding or missed periods. ENDO/HEME/LYMPH: No enlarged lymph nodes. RESPIRATORY: No cough or orthopnea. CONSTITUTIONAL: No fever. NEUROLOGICAL: No headache. PAST HISTORY Bradycardia Hypertension Surgeries: cysts removal Medications: atorvastatin 10 mg tablet levothyroxine 125 mcg tablet Allergies: Penicillins prednisone SOCIAL HISTORY Never smoker. No alcohol use or drug use. No recent travel. FAMILY HISTORY Negative. ADDITIONAL NOTES The nursing notes have been reviewed with agreement regarding the chief complaint, PMH and patient medications and allergies. 2 of 20 Narrative PHYSICAL EXAM Appearance: Alert. Oriented X3. No acute distress. Eyes: Pupils equal, round and reactive to light. Eyes normal inspection. ENT: Pharynx normal. Neck: Normal inspection. Neck supple. CVS: Normal heart rate and rhythm. Heart sounds normal. Pulses normal. Rate normal. Not tachycardic. Rhythm normal. No cardiac murmur or extra heart sounds. PMI not displaced laterally. Respiratory: No respiratory distress. No respiratory distress. Painless inspiration. Breath sounds normal. Chest nontender. No retractions, accessory muscle use, chest pain reproduced on physical exam, splinting or decreased air movement. No crackles, rhonchi, wheezes or prolonged expiration. Abdomen: Soft and nontender. Bowel sounds normal. Back: Normal external inspection. Skin: Skin warm and dry. Normal skin color. No rash. Extremities: Extremities exhibit normal ROM. No clubbing present or lower extremity edema. No calf tenderness. No lower extremity edema. Neuro: Oriented X 3. LABS, X-RAYS, AND EKG 12-LEAD EKG: EKG time: 07:27 09/07/2024. No acute process. Normal EKG. Rhythm not atrial flutter. Normal sinus rhythm. Rate: 75. Occasional ectopic beats. Premature ventricular contractions. No tachycardia or bradycardia. No atrial fibrillation. Normal P waves. Normal KAYLIN. Normal QRS complex. Normal axis. Normal ST and T waves and QT. The study has been independently viewed by me. The EKG appears to be a good tracing. I agree with and confirm the computer reading of the EKG. Interpretation time: 07:34 09/07/2024. Laboratory Tests: CBC + DIFF Final GARCIA: 09/07/2024 07:42:00 EDT MsgRcvd: 09/07/2024 08:09 EDT Lab Test Result Reference Status Received Comments 09/07/2024 08:09 CBC-COMPLETE CBC + DIFF Final EDT BLOOD COUNT 3 of 20 Narrative Lab Test Result Reference Status Received Comments 09/07/2024 08:09 WBC 5.9 x 10/UL 4.5 - 10.8 Final EDT 09/07/2024 08:09 RBC 5.20 x 10/UL 4.50 - 6.00 Final EDT 09/07/2024 08:09 HEMOGLOBIN 16.1 g/dl 13.0 - 17.5 Final EDT 09/07/2024 08:09 HEMATOCRIT 45.7 % 40.0 - 52.0 Final EDT 09/07/2024 08:09 MCV 88 fl 81 - 98 Final EDT 09/07/2024 08:09 MCH 31 pg 27 - 33 Final EDT 09/07/2024 08:09 MCHC 35 X10 3 32 - 36 Final EDT 09/07/2024 08:09 RDW/CV 13.0 % 12.0 - 15.6 Final EDT 09/07/2024 08:09 PLATELET 227 x10/UL 150 - 450 Final EDT 09/07/2024 08:09 AUTOMATED MPV 8.7 fl 6.4 - 10.5 Final EDT DIFFERENTIAL 09/07/2024 08:09 NEUT % 64.5 % 46.0 - 76.0 Final EDT 09/07/2024 08:09 LYMPH % 24.3 % 20.0 - 45. (more content not included)... Normal [facility] ED [facility] BILL 09-07-2024 ED [facility] [address] [place] [address] [id number] 09/07/2024 Patient: TOD PABON Sex: Male : 1960 Age: 64y Item Professional Category Description Facility Code Code Quantity Fee Total Nurse/E/M EMERGENCY [id number] 1 $0.00 $0.00 DEPARTMENT VISIT MODERATE SEVERITY (39297-32) Grand Total $0.00 Providers Aung Napoles D.O. Chief Complaint PALPITATIONS. Principal Diagnosis Palpitations. Probable acute bacterial bronchitis. Antibiotics prescribed / dispensed: bacterial bronchitis. 1 of 2 Superbill ICD-10 Codes R00.2: Palpitations 2 of 2 Normal [facility] ED VISIT SUMMARYon ED VISIT SUMMARY Visit Overview Visit Overview [facility] [address] [place] [address] [id number] 09/07/2024 Patient: TOD PABON Sex: Male : 1960 Age: 64y 09/07/2024 06:45 PM EDT ED Arrival:07:21 09/07/2024 EDT Status: Recent Travel:no Language:eng Adv Directive:No Isolation Status: Ethnicity:N Fall Risk:no risk Infectious Disease Exposure:no Measurements:5'7 / 170.2 Self-Harm Status:no risk Sepsis Screen:negative cm 210.0 lb / 95.3 kg Chief Complaint:(latouf), (palpitations), and (pt is on doxycycline for a possible strep throat infection. pt states that yesterday he became diaphoretic and felt his heart racing. pt thought it would go away overnight but it did not. ) ALLERGIES Penicillins prednisone HOME MEDICATIONS 1 of 3 Visit Overview atorvastatin 10 mg tablet levothyroxine 125 mcg tablet PAST MEDICAL HISTORY / PROBLEMS Bradycardia Hypertension PAST SURGICAL HISTORY cysts removal SOCIAL HISTORY Smoking status: No Alcohol use: No Drug use: No ED COURSE MEDICATIONS GIVEN IN EMERGENCY DEPARTMENT IV SITE INFORMATION INTAKE OUTPUT REASSESMENT (most recent) 07:44 09/07/24. Ambulatory to room. GENERAL / NEURO / PSYCH: Alert. Oriented X 4. Appears in no acute distress. HEENT: Mucous membranes are pink. RESPIRATORY: Respirations not labored. Chest nontender. Breath sounds within normal limits. CVS: Normal sinus rhythm noted. Heart sounds within normal limits. Pulses within normal limits. Capillary refill less than 2 seconds. GI / : Abdomen soft and nontender. EXTREMITIES: No lower extremity edema. SKIN: Skin is warm and dry. Normal skin turgor. Skin is non-tender. VITAL SIGNS First Vitals Last Vitals 2 of 3 Visit Overview First Vitals Last Vitals Temp 07:34 09/07/24 Temp 09:46 09/07/24 BP 07:34 09/07/24 BP 09:46 09/07/24 HR 07:34 09/07/24 82 HR 09:46 09/07/24 84 RR 07:34 09/07/24 RR 09:46 09/07/24 O2 Sat 07:34 09/07/24 98% O2 Sat 09:46 09/07/24 96% Pain 07:34 09/07/24 Pain 09:46 09/07/24 ETCO2 07:34 09/07/24 ETCO2 09:46 09/07/24 GCS 07:34 09/07/24 GCS 09:46 09/07/24 RTS 07:34 09/07/24 RTS 09:46 09/07/24 PROCEDURES NURSING INTERVENTIONS LABS / STUDIES LABS / STUDIES ORDERED BNP CBC w Diff Chest 2V CMP EKG - ED Flu Swab (Influenzae AAg) Magnesium Rapid COVID (SARS) ANTIGEN TEST RSV Troponin-I TSH CLINICAL IMPRESSION PALPITATIONS PROBABLE ACUTE BACTERIAL BRONCHITIS. ANTIBIOTICS PRESCRIBED / DISPENSED: BACTERIAL BRONCHITIS 3 of 3 Normal [facility] ED VITALS FLOW SHEETon 09-07 ED VITALS FLOW SHEET Vitals Vital Sign Flow Sheet [address] [place] [address] [id number] 09/07/2024 Patient: TOD PABON Sex: Male : 1960 Age: 64y Measurements Wt: 95.3 kg, Ht/Kenan: 67.0 in, BMI: 32.89 Measured Time BP MAP HR RR O2Sat ETCO2 Temp Pain GCS RTS 09:46 09/07/2024 84 96% 09:41 09/07/2024 73 96% 09:36 09/07/2024 83 96% 09:33 09/07/2024 152/99 116 81 09:31 09/07/2024 84 97% 09:26 09/07/2024 70 92% 09:21 09/07/2024 71 92% 09:18 09/07/2024 139/97 103 71 09:16 09/07/2024 72 95% 09:11 09/07/2024 74 95% 09:06 09/07/2024 77 96% 08:56 09/07/2024 74 96% 08:51 09/07/2024 76 93% 08:48 09/07/2024 139/95 110 71 08:46 09/07/2024 73 95% 1 of 3 Vitals Measured Time BP MAP HR RR O2Sat ETCO2 Temp Pain GCS RTS 08:41 09/07/2024 69 95% 08:36 09/07/2024 71 95% 08:33 09/07/2024 135/86 102 69 08:31 09/07/2024 76 95% 08:26 09/07/2024 69 94% 08:21 09/07/2024 76 92% 08:18 09/07/2024 137/98 111 71 08:16 09/07/2024 75 96% 08:11 09/07/2024 72 95% 08:06 09/07/2024 79 96% 08:03 09/07/2024 147/97 116 75 07:59 09/07/2024 77 96% 07:54 09/07/2024 75 95% 07:51 09/07/2024 146/109 121 77 (Orthostatic lying) 07:51 09/07/2024 145/99 114 76 (Orthostatic sitting) 07:51 09/07/2024 140/103 115 79 (Orthostatic standing) 07:49 09/07/2024 80 98% 07:48 09/07/2024 140/103 112 82 07:47 09/07/2024 145/99 114 73 07:46 09/07/2024 146/109 123 74 07:44 09/07/2024 78 95% 07:39 09/07/2024 77 97% 2 of 3 Vitals Measured Time BP MAP HR RR O2Sat ETCO2 Temp Pain GCS RTS 07:34 09/07/2024 155/108 124 83 14 98% 97.8 F 0 07:34 09/07/2024 82 98% 3 of 3 Normal [facility] INFLUENZA VIRUS RAPID A/Bon 07-10-2025 INFLUENZA VIRUS RAPID A/B INFLUENZA A NEGATIVE INFLUENZA B NEGATIVE INTERNAL NEG QC PASS INTERNAL POS QC PASS EXTERNAL QC DONE? YES SEND TO IC? NO A NEGATIVE TEST RESULT DOES NOT EXCLUDE INFECTION WITH INFLUENZA A OR B. THEREFORE, THE RESULTS OBTAINED FROM THIS FLU TEST SHOULD BE USED IN CONJUCTION WITH CLINICAL FINDINGS TO MAKE AN ACCURATE DIAGNOSIS. A POSITIVE RESULT DOES NOT RULE OUT CO-INFECTIONS WITH OTHER PATHOGENS OR IDENTIFY ANY SPECIFIC INFLUENZA A VIRUS SUBTYPE.CO-INFECTION WITH INFLUENZA A AND B IS RARE. IT IS RECOMMENDED THAT DUAL POSITIVE RESULTS BE CONFIRMED BY VIRAL CULTURE OR AN FDA-CLEARED INFLUENZA A AND B MOLECULAR ASSAY. INDIVIDUALS WHO HAVE RECEIVED NASALLY ADMINISTERED INFLUENZA A VACCINE MAY TEST POSITIVE IN COMMERCIALLY AVAILABLE INFLUENZA RAPID DIAGNOSTIC TESTS FOR UP TO THREE DAYS. RESULT CRITICAL? NO Normal [facility] Comment on above: Performed By: #### 2 [id number] #### [facility],[address] [place] [address] 52617 MAGNESIUMon 09-07-2024 Magnesium [Mass/Vol] 2.3 mg/dL Normal 1.8 - 2.4 [facility] Comment on above: Performed By: #### 2 [id number] #### [facility],[address] [place] [address] 33113 NT-proBNPon 09-07-2024 Natriuretic peptide B (Bld) [Mass/Vol] 13 pg/mL Normal 0 - 125 [facility] Comment on above: Performed By: #### 2 12889 #### [facility],[address] [place] [address] 97946 RESPIRATORY PANEL PCR (POM)o n 09-07-2024 ADENOVIRUS Negative Normal NORMAL: NEGATIVE [facility] Comment on above: Performed By: #### 2 86297 #### [facility],[address] [place] [address] 48608 B. HOLMESII Negative Normal NORMAL: NEGATIVE [facility] Comment on above: Performed By: #### 2 01001 #### [facility],[address] [place] [address] 93045 B. PARAPERTUSSIS Negative Normal NORMAL: NEGATIVE [facility] Comment on above: Performed By: #### 2 65786 #### [facility],[address],[place] [address] B. PERTUSSIS Negative Normal NORMAL: NEGATIVE [facility] Comment on above: Performed By: #### 2 62966 #### [facility],[address],[place] [address] H. METAPNEUMOVIRUS Negative Normal NORMAL: NEGATIVE [facility] Comment on above: Performed By: #### 2 52428 #### [facility],[address],[place] [address] Influenza A Negative Normal NORMAL: NEGATIVE [facility] Comment on above: Performed By: #### 2 47622 #### [facility],[address],[facility] [address] INFLUENZA A H1 Negative Normal NORMAL: NEGATIVE [facility] Comment on above: Performed By: #### 2 45197 #### [facility],[address],[place] [address] INFLUENZA A H3 Negative Normal NORMAL: NEGATIVE [facility] Comment on above: Performed By: #### 2 34708 #### [facility],[address],[facility] [address] Influenza B Negative Normal NORMAL: NEGATIVE [facility] Comment on above: Performed By: #### 2 18518 #### [facility],[address],[place] [address] PARAINFLUENZA 1 Negative Normal NORMAL: NEGATIVE [facility] Comment on above: Performed By: #### 2 31618 #### [facility],[address] [facility],[place] [address] PARAINFLUENZA 2 Negative Normal NORMAL: NEGATIVE [facility] Comment on above: Performed By: #### 2 44335 #### [facility],[address] [facility],[place] [address] PARAINFLUENZA 3 Negative Normal NORMAL: NEGATIVE [facility] Comment on above: Performed By: #### 2 68247 #### [facility],[address] [place] [address] PARAINFLUENZA 4 Negative Normal NORMAL: NEGATIVE [facility] Comment on above: Performed By: #### 2 26162 #### [facility],[address] [place] [address]232 RESPIRATORY PANEL PCR (POM) Normal [facility] Comment on above: Result Comment: RESP IRATORY PANEL FLEX PCR Performed By: #### 2 08725 #### [facility],[address] [place] [address] 20710 RHINOVIRUS Negative Normal NORMAL: NEGATIVE [facility] Comment on above: Performed By: #### 2 25321 #### [facility],[address] [place] [address] 35593 RSV A Negative Normal NORMAL: NEGATIVE [facility] Comment on above: Performed By: #### 2 01821 #### [facility],[address] [place], [place] [id number] RSV B Negative Normal NORMAL: NEGATIVE [facility] Comment on above: Performed By: #### 2 22688 #### [facility],[address] [place] [address] SEND TO ? NO Normal [facility] Comment on above: Result Comment: THIS ASSAY HAS BEEN VALIDATED IN THE [facility] FOR USE WITH NASOPHARYNGEAL SPECIMENS IN [facility]. INTERPRETIVE DATA THE [employer] RESPIRATORY PATHOGENS FLEX NUCLEIC ACID TEST (RP FLEX) IS A MULTIPLEXED QUALITATIVE TEST INTENDED FOR THE SIMULTANEOUS DETECTION AND IDENTIFICATION OF MULTIPLE VIRAL AND BACTERIAL NUCLEIC ACIDS IN NASOPHARYNGEAL SWABS (BAND SAW OPERATOR) OBTAINED FROM INDIVIDUALS SUSPECTED OF RESPIRATORY TRACT INFECTION. THE TEST IS PERFORMED ON THE AUTOMATED Patient Communicator SYSTEM UTILIZING REVERSE E COMMERCE SPECIALIST (RT), POLYMERASE CHAIN REACTION (PCR), AND MICROARRAY HYBRIDIZATION TO DETECT GENE SEQUENCES OF THE FOLLOWING ORGANISM TYPES AND SUBTYPES: ADENOVIRUS, HUMAN METAPNEUMOVIRUS,INFLUENZA A,INFLUENZA A (SUBTYPE H1), INFLUENZA A (SUBTYPE H3), INFLUENZA B,PARAINFLUENZA 1,PARAINFLUENZA 2, PARAINFLUENZA 3, PARAINFLUENZA 4, RESPIRATORY SYNCYTIAL VIRUS A,RESPIRATORY SYNCYTIAL VIRUS B, RHINOVIRUS,BORDETELLA PARAPERTUSSIS/BRONCHISEPTICA,BORDETELLA HOLMESII,AND BORDETELLA PERTUSSIS. DETECTING AND IDENTIFYING SPECIFIC VIRAL AND BACTERIAL NUCLEIC ACIDS FROM INDIVIDUALS EXHIBITING SIGNS AND SYMPTOMS OF RESPIRATORY INFECTION AIDS IN THE DIAGNOSIS OF RESPIRATORY INFECTION, IF USED IN CONJUNCTION WITH OTHER CLINICAL AND LABORATORY FINDINGS. THE RESULTS OF THIS TEST SHOULD NOT BE USED THE SOLE BASIS FOR DIAGNOSIS, TREATMENT, OR PATIENT MANAGEMENT DECISIONS. NEGATIVE RESULTS IN THE PRESENCE OF A RESPIRATORY ILLNESS DO NOT PRECLUDE RESPIRATORY INFECTION AND MAY BE DUE TO INFECTION WITH PATHOGENS THAT ARE NOT DETECTED BY THIS TEST OR LOWER RESPIRATORY TRACT INFECTION THAT IS NOT DETECTED BY AN BAND SAW OPERATOR SPECIMEN. CONVERSELY, POSITIVE RESULTS DO NOT RULE-OUT INFECTION OR CO-INFECTION WITH ORGANISMS NOT DETECTED BY RP FLEX. THE AGENT(S) DETECTED MAY NOT BE THE DEFINITE CAUSE OF DISEASE. THE USE OF ADDITIONAL LABORATORY TESTING AND CLINICAL PRESENTATION MAY BE NECESSARY TO ESTABLISH A FINAL DIAGNOSIS OF RESPIRATORY INFECTION. CLINICAL EVALUATION INDICATES A LOWER SENSITIVITY SPECIFIC TO RP FLEX FOR THE DETECTION OF RHINOVIRUS. IF INFECTION WITH RHINOVIRUS IS SUSPECTED, NEGATIVE SAMPLES SHOULD BE CONFIRMED USING AN ALTERNATIVE METHOD. PERFORMANCE CHARACTERISTICS FOR INFLUENZA A WERE ESTABLISHED WHEN INFLUENZA A/H1 (2009 PANDEMIC) AND A/H3 WERE THE PREDOMINANT INFLUENZA A VIRUSES IN CIRCULATION. RP FLEX MAY NOT DETECT NOVEL INFLUENZA A STRAINS. IF INFECTION WITH A NOVEL INFLUENZA A VIRUS IS SUSPECTED BASED ON CURRENT CLINICAL AND EPIDEMIOLOGICAL SCREENING CRITERIA RECOMMENDED BY PUBLIC HEALTH AUTHORITIES, SPECIMENS SHOULD BE COLLECTED WITH APPROPRIATE INFECTION CONTROL PRECAUTIONS USED SPECIFICALLY FOR NOVEL VIRULENT INFLUENZA VIRUSES AND SENT TO APPROPRIATE HEALTH AUTHORITIES FOR TESTING. VIRAL CULTURE SHOULD NOT BE ATTEMPTED IN THESE CASES UNLESS A BIOSAFETY LEVEL (BSL) 3+ FACILITY IS AVAILABLE TO RECEIVE AND CULTURE SPECIMENS. Performed By: #### 2 66942 #### [place] [id number] RSVon 09-07-2024 RSV RSV NEGATIVE INTERNAL NEG QC PASS INTERNAL POS QC PASS EXTERNAL QC DONE? YES THIS TESTS IS INTENDED FOR IN VITRO DIAGNOSTIC USE TO AID IN THE DIAGNOSIS OF RESPIRATORY SYNCTYIAL VIRUS INFECTIONS IN AND PEDIATRIC PATIENTS UNDER THE AGE OF 5. IT IS RECOMMENDED THAT NEGATIVE TEST RESULTS BE CONFIRMED BY CELL CULTURE. Normal [facility] Comment on above: Performed By: #### 2 30404 ####[address] [address] TROPONINon 09-07-2024 HS TROPONIN 4.1 pg/mL Normal 0.0 - 76.2 [facility] Comment on above: Performed By: #### 2 19691 #### [facility],[address] [place] [address] 50240 TSHon 09-07-2024 TSH Qn 1.80 m[IU]/L Normal 0.35 - 3.74 [facility] Comment on above: Performed By: #### 2 76078 #### [facility],[address] [place] [address] 59402 Culture, Throaton 09-06-2024 CUT Normal throat gracie isolated. No beta-hemolytic streptococcus isolated. Normal [facility] Comment on above: Performed By: #### M 100.1000 #### [facility] [address] [place], [place], [id number] Laboratory - Microbiology an d Antimicrobial susceptibilityOrdered By: Victor M Wilson on 09-03-2024 SARS-CoV-2 (COVID-19) RNA CHAD+probe Ql (Unsp spec) Not detected [facility] Rapid group A Streptococcus antigen assay at point of careOrdered By: Victor M Wilson on 09-03-2024 S. pyogenes Ag IA.rapid Ql (Throat) Negative [facility] Throat specimen bacteria luisa ntification by cultureOrdered By: VictorM Wilson on 09-03-2024 Bacteria identified Cx Nom (Throat) streptococcus isolated. [facility] Urgent Care Visit Reporton 0 09-03-2024 Urgent Care Visit Report [facility] [address], [address] [place], [place] [address] OFFICE VISIT Date of Service: 09/03/24 MR#: [id number] Acct: [id number] Name: TOD PABON Jr. Rep #: [id number] : 1960 Provider: WALDEMAR mclaughlin Age/Sex: 64/M Location: [facility] Status: Signed Intake Vital Signs 08/31/24 09:19 09/03/24 12:31 09/03/24 13:53 Height 5 ft 7 in 5 ft 7 in 5 ft 7 in Weight: 221 lb 216 lb BMI 34.6 33.8 BP 106/71 116/78 Blood Pressure Location Rt brachial Lt brachial Position Sitting Sitting Respiration 17 18 Pulse 76 83 Pulse Source Monitor Monitor Temp 98 F Temp Source Temporal Pulse Oximetry (%) 95 97 Oxygen Delivery Method room air room air Intake Visit Reasons: SORE THROAT Settlement Technician Required: No Allergies prednisone Allergy (Unverified 09/03/24 13:47) PT UNSURE OF REACTION Medications ???Medication ???Instructions ???Recorded ???Confirmed ???Type aspirin 81 mg capsule 81 mg PO DAILY 07/26/22 09/03/24 H istory atorvastatin 10 mg tablet 10 mg PO DAILY 07/26/22 09/03/24 H istory levothyroxine 125 mcg tablet 125 mcg PO DAILY 07/26/22 09/03/24 History omega-3 fatty acids 1,000 mg PO DAILY 07/26/22 5 History ascorbic acid (vitamin C) 500 mg mg PO 08/31/24 09/03/24 History capsule cholecalciferol (vitamin D3) 50 50 mcg PO QDAY 08/31/24 09/03/24 H istory mcg (2,000 unit) capsule doxycycline hyclate 100 mg capsule 100 mg PO BID 7 days #14 caps 09/03/24 Rx Have you fallen in the past year?: No Nurse's Note: Pt had egd done 3 days ago. He states that food was getting stuck and he had a lot of pain. Went to the ER 4 days ago. Pt had sore throat starting 5 days ago. Pt had a temp of 101. Pt has been treati ng w/ ibuprofen. Pt c/o post nasal drip, and gagging and spitting up white. Pt denies body aches, cough or chills. PFSH Medical History (Updated 09/03/24 @ 14:20 by Victor M Wilson NP, [employer]) Rheumatoid arthritis Thyroid disease Bradycardia Surgical History (Updated 09/03/24 @ 14:10 by Maria Esther Wong MA) History of hydrocelectomy Family History Mother Myocardial infarction Diabetes Sister Breast cancer Social History Smoking Status: Never smoker HPI HPI Details: TOD PABON, is a 64 M who presents to the office today for concerns regarding sore throat. He states noting a sore throat and was seen at [place] emergency department for such and concerns that food was stuck. His workup was negative. He underwent EGD that was also negative. His sore throat started 5 days ago. He does not intend of 101. He has been utilizing ibuprofen. He does acknowledge postnasal drip and spitting up white. He denies bodyaches, cough, or chills. He underwent rapid strep test that was negative. He underwent COVID testing that was also negative. ROS Const Constitutional: Positive for fever(s); No chills, excessive sweating, fatigue, frequent falls, headache(s), snoring, weakness, sleep problems or change in appetite Eyes Eyes: No blurry vision, change in vision, eye pain or Light sensitivity ENT ENT: Positive for post nasal drip, hoarseness and sore throat; No abnormal hearing, ear or mastoid pain, ear discharge, ear pressure, tinnitus, dizziness/vertigo, balance problems, nosebleed/epistaxis, nasal congestion, sinus pain, headache(s), facial pain, dental pain, difficulty swallowing, lip swelling, mouth lesions, mouth pain, neck pain, tongue swelling or throat swelling Resp Respiratory: No cough, shortness of breath, snoring or wheezing Cardio Cardiology: No chest pain at rest, chest pain with exertion, excessive sweating, shortness of breath, dyspnea on exertion, lightheadedness, orthopnea or palpitations Gastro GI: No abdominal pain, change in bowel habits, constipation, cramping, diarrhea, difficulty swallowing, nausea/dyspepsia or vomiting Genitourinary Male: No burning urination, painful urination, urinary incontinence or urinary frequency Musc Musculoskeletal: No abnormal gait, joint pain, back pain, limited range of motion, neck pain or numbness Skin Skin: No dry skin, redness, lesions, itchy eyes, rash or wounds Neuro Neurology: No abnormal gait, abnormal hearing, weakness, frequent falls, headache(s), memory loss or numbness Psych Psychiatric: No anxiety, No change in appetite, No depression, No memory loss and No Thoughts of harming yourself/Others Endo Endocrine: No cold intolerance, excessive sweating, fatigue, flushing, heat intolerance, increased thirst/drinking or increased hunger Aller/Imm Allergy/Immunologic: No itchy eyes, lip swelling, seasonal allergy symptoms, throat swell (more content not included)... Normal [facility] Surgery Visit Reporton 08-31 Surgery Visit Report [facility] [address] [place] [address] OFFICE VISIT Date of Service: 08/31/24 MR#: [id number] Acct: [id number] Name: TOD PABON Jr. Rep #: [id number] : 1960 Provider: Dr. Kwadwo crowley MD Age/Sex: 64/M Location: [facility] Status: Signed Intake Vital Signs 07/26/22 03:00 08/31/24 09:19 Height 5 ft 7.5 in 5 ft 7 in Weight: 221 lb BMI 34.6 BP 106/71 Blood Pressure Location Rt brachial Position Sitting Respiration 17 Pulse 76 Pulse Source Monitor Pulse Oximetry (%) 95 Oxygen Delivery Method room air Intake Visit Reasons: COLONOSCOPY Chief Complaint: c-scope/egd Is patient in pain?: No Allergies No Known Allergies Allergy (Verified 08/31/24 09:20) Have you fallen in the past year?: No PFSH Medical History (Updated 08/31/24 @ 09:17 by Kelsey Fernandez) Rheumatoid arthritis Thyroid disease Bradycardia Family History (Updated 08/31/24 @ 09:19 by Kelsey Fernandez) Mother Myocardial infarction Diabetes Sister Breast cancer Social History Smoking Status: Never smoker HPI HPI HPI: Patient is a 64-year-old male here for screening colonoscopy. His last colonoscopy was 8 to 9 years ago and polyps were removed. The patient is also here because he experiences dysphagia occasionally. He has difficulty swallowing pills sometimes and last night he was in the emergency room feeling like he had a blockage after swallowing fish. Today he feels like the blockage is gone but he feels like something may have been scratched as he has a sore throat. ROS General General: No weight change, appetite, fatigue, colon cancer, breast cancer or weakness HEENT HEENT: Yes difficulty swallowing; No eye injury, eye surgery, swollen glands or hoarseness Endo Endocrine: Yes thyroid disease; No diabetes mellitus, thyroid cancer, Hair loss, heat intolerance or cold intolerance Skin Skin: Yes rash and changing moles Musc Musculoskeletal: Yes arthritis and rheumatoid arthritis; No back problems, gout or joint pain Cardio Cardiovascular: No murmur, pacemaker, heart disease, atrial fibrillation, high blood pressure, heart attack, heart stent, palpitations, shortness of breath with exertion or chest pain Psych Psychiatric: No depression, anxiety or hearing voices Resp Respiratory: No shortness of breath, No sleep apnea, No cough, No COPD, No asthma, No emphysema and No wheezing Gastro Gastrointestinal: No abdominal pain, No nausea or vomiting, No diarrhea, No constipation, No blood in stool, No acid reflux, Yes hemorrhoids, No ulcers, No gallbladder problem and No black,tarry stools Elías Hematologic: No blood thinners, No blood disorders, No bleeding, No anemia and No blood clots Neuro Neurologic: No system reviewed and no additional complaints, except as documented, No as per HPI, No abnormal gait, No abnormal hearing, No abnormal movements, No abnormal speech, No behavioral changes, No burning sensations, No confusion, No convulsions, No disequilibrium, No dizziness, No localized weakness, No frequent falls, No headache(s), No lack of coordination, No loss of vision, No memory loss, No numbness, No other visual disturbances, No radicular pain, No restless legs, No sensory deficit, No syncope, No tingling, No tremor(s), No weakness and No other Exam Const General: cooperative Orientation: alert and oriented x3 [facility] Head: normal to inspection Neck Neck: normal visual inspection and full ROM Chest Chest palpation inspection: normal inspection of the chest Resp Effort Inspection: normal respiratory effort Auscultation: clear to auscultation bilaterally Cardio Rate: regular rate Rhythm: regular rhythm GI Inspection: non-distended Palpation: soft and nontender Skin General: no rashes or lesions noted Neuro General: patient alert and patient oriented x3 Extrem General: full ROM Psych Appearance: grossly normal Mental Status: mental status grossly normal Assessment and Plan Assessment and Plan (1) Difficulty swallowing: Status: Acute Plan: Patient is having difficulty swallowing and had some food stuck yesterday. I discussed performing EGD with possible dilation. I discussed the risks of dilation including perforation and bleeding. (2) Encounter for screening for malignant neoplasm of colon: Status: Acute Plan: Plan for colonoscopy for evaluation for history of polyps. I explained endoscopy in detail to the patient. I explained the risks including but not limited to stroke or heart attack with anesthesia, perforation of the GI tract, bleeding, infection. I explained that any of these could necessitate further emergency surgery. The patient understands and all questions were answered coley (more content not included)... Normal [facility] BMP with eGFRon 08-30-2024 AGE 64 years Normal [facility] Comment on above: Performed By: #### 2 [id number] #### [facility],[address] [place] [address]3072 Anion gap [Moles/Vol] 11 mmol/L Normal 10 - 20 [facility] Comment on above: Performed By: #### 2 15391 #### [facility],[address] [place] [address] 97728 BMP with eGFR Normal [facility] Comment on above: Result Comment: BASI C METABOLIC PANEL Performed By: #### 2 33154 #### [facility],[address] [place] [address] 36962 Calcium [Mass/Vol] 9.1 mg/dL Normal 8.5 - 10.1 [facility] Comment on above: Performed By: #### 2 58902 #### [facility],[address] [place] [address] 74466 Chloride [Moles/Vol] 103 mmol/L Normal 98 - 107 [facility] Comment on above: Performed By: #### 2 19659 #### [facility],[address] [place] [address] 31316 CO2 [Moles/Vol] 29.2 mmol/L Normal 21.0 - 32.0 [facility] Comment on above: Performed By: #### 2 69086 #### [facility],[address] [place] [address] 95963 Creatinine [Mass/Vol] 0.90 mg/dL Normal 0.70 - 1.30 [facility] Comment on above: Performed By: #### 2 46240 #### [facility],[address] [place] [address] 43669 GFR/1.73 sq M.predicted among non-blacks MDRD (S/P/Bld) [Vol rate/Area] mL/min/{1.73_m2} Normal 60 - 999 [facility] Comment on above: Performed By: #### 2 78295 #### [facility],[address] [place], [place] [id number] Result Comment: ACCO RDING TO THE NATIONAL KIDNEY DISEASE EDUCATION PROGRAM(NKDE), A NORMAL eGFR IS A VALUE GREATER THAN OR EQUAL TO 60 ML/MIN/1.73 SQ METERS. CHRONIC KIDNEY DISEASE: <60mL/MIN/1.73 SQ METERS KIDNEY FAILURE: <15mL/MIN/1.73 SQ METERS THIS TEST SHOULD ONLY BE USED FOR PATIENTS 18 YEARS OF AGE AND OLDER. Glucose [Mass/Vol] 96 mg/dL Normal 74 - 106 [facility] Comment on above: Performed By: #### 2 62635 #### [facility],[address] [place] [address]649 Potassium [Moles/Vol] 4.1 mmol/L Normal 3.5 - 5.1 [facility] Comment on above: Performed By: #### 2 77300 #### [facility],[address] [place] [address] 53489 Sodium [Moles/Vol] 139 mmol/L Normal 136 - 145 [facility] Comment on above: Performed By: #### 2 00472 #### [facility],[address] [place] [address] 31096 Urea nitrogen [Mass/Vol] 13 mg/dL Normal 7 - 18 [facility] Comment on above: Performed By: #### 2 95790 #### [facility],[address] [place] [address] 85413 CBC + DIFFon 08-30-2024 Baso # 0.03 x10EE3/UL Normal 0.00 - 0.10 [facility] Comment on above: Performed By: #### 2 00408 #### [facility],[address] [place] [address] Basophils/100 WBC (Bld) 0.4 % Normal 0.0 - 2.0 [facility] Comment on above: Performed By: #### 2 74752 #### [facility],[address] [place] [address] CBC + DIFF Normal [facility] Comment on above: Result Comment: CBC- COMPLETE BLOOD COUNT Performed By: #### 2 96364 #### [facility],[address] [place] [address] EO # 0.03 x10EE3/UL Normal 0.00 - 0.50 [facility] Comment on above: Performed By: #### 2 29929 #### [place] [address] Eosinophils/100 WBC (Bld) 0.4 % Normal 0.0 - 7.0 [facility] Comment on above: Performed By: #### 2 92349 #### [place] [address] Erythrocyte distribution width (RBC) [Ratio] 12.7 % Normal 12.0 - 15.6 [facility] Comment on above: Performed By: #### 2 26088 #### [place] [address] Hematocrit (Bld) [Volume fraction] 42.3 % Normal 40.0 - 52.0 [facility] Comment on above: Performed By: #### 2 13496 #### [facility],[address] [place] [address] Hemoglobin (Bld) [Mass/Vol] 15.3 g/dL Normal 13.0 - 17.5 [facility] Comment on above: Performed By: #### 2 22690 #### [facility],[address] [place] [address] Lymph # 1.07 x10EE3/UL Normal 0.80 - 2.80 [facility] Comment on above: Performed By: #### 2 41539 #### [facility],[address] [place] [address] Lymphocytes/100 WBC (Bld) 13.1 % Low 20.0 - 45.0 [facility] Comment on above: Performed By: #### 2 39629 #### [facility],[address] [place] [address] MANUAL DIFF N/A Normal [facility] Comment on above: Performed By: #### 2 05203 #### [facility],[address] [place] [address] MCH (RBC) [Entitic mass] 32 pg Normal 27 - 33 [facility] Comment on above: Performed By: #### 2 57760 #### [place] [address] MCHC 36 X10 3 Normal 32 - 36 [facility] Comment on above: Performed By: #### 2 04952 #### [facility],[address] [place] [address] MCV (RBC) [Entitic vol] 88 fL Normal 81 - 98 [facility] Comment on above: Performed By: #### 2 66783 #### [facility],[address] [place] [address] [place] # 0.90 x10EE3/UL Normal 0.20 - 1.00 [facility] Comment on above: Performed By: #### 2 44116 #### [facility],[address] [place] [address] MONOS % 11.1 % High 0.0 - 10.0 [facility] Comment on above: Performed By: #### 2 33885 #### [facility],[address] [place] [address] Morphology Shahbaz (Bld) [Interp] N/A Normal [facility] Comment on above: Performed By: #### 2 74048 #### [facility],[address] [place] [address] Neut # 6.08 x10EE3/UL Normal 1.50 - 7.10 [facility] Comment on above: Performed By: #### 2 24932 #### [address] [address] Neutrophils/100 WBC (Bld) 75.0 % Normal 46.0 - 76.0 [facility] Comment on above: Performed By: #### 2 09686 #### [address] [address] PLATELET 188 x10EE3/UL Normal 150 - 450 [facility] Comment on above: Performed By: #### 2 39108 #### [place] [address] Platelet mean volume (Bld) [Entitic vol] 8.3 fL Normal 6.4 - 10.5 [facility] Comment on above: Result Comment: AUTO MATED DIFFERENTIAL Performed By: #### 2 82347 #### [address] [address] RBC 4.83 x 10EE6/UL Normal 4.50 - 6.00 [facility] Comment on above: Performed By: #### 2 77750 #### [facility],[address] [place], [place] [address] WBC 8.1 x 10EE3/UL Normal 4.5 - 10.8 [facility] Comment on above: Performed By: #### 2 57859 #### [address] [address] [address] NECK W/CONTRASTon 025 CT NECK W/CONTRAST [place] [address] Patient: TOD PABON Phone#: : 1960 Age: 64 Gender: M Pt. Type: ER Account: [id number] Location: 052 Ordering: DR. RIKI DIOR Exam Date: 08/30/2024/18:48 Family Phys: MayMarcio COREY Charge Code: [id number] Physician: [place] Order #: [id number] Dose#: 7.7 mGy PROCEDURE: CT NECK WITH CONTRAST COMPARISON: None. INDICATIONS: Foreign body. TECHNIQUE: After obtaining the patient's consent, CT images were created with non-ionic intravenous contrast material. All CT scans at this facility use dose modulation, iterative reconstruction, and/or weight based dosing when appropriate to reduce radiation dose to as low as reasonably achievable. IV CONTRAST: Omnipaque 350,80ml TOTAL DOSE: 7.7 CTDIvol(mGy) FINDINGS: Dental amalgam streak artifact limits evaluation at the involved levels. NASOPHARYNX: Normal. Fossae of Rosenmuller and torus tubarius are symmetric. ORAL CAVITY: Within the limits of streak artifact appreciable radiopaque foreign object. OROPHARYNX: Calcifications seen in the left faucial tonsil. HYPOPHARYNX: Normal. No mass or other visible lesion. LARYNX: Normal. The vocal cords are symmetric and without mass. SINUSES: Mucosal thickening of the ethmoid air cells. Mucosal thickening in left maxillary sinus NECK GLANDS: Normal. The parotid, submandibular, and thyroid glands are unremarkable. LYMPH NODES: Normal. No pathological-appearing or enlarged lymph nodes. SKULL BASE: Normal. Foramina are symmetric without bony erosion. VASCULATURE: Normal. Limited views are unremarkable. BONES: Normal. No significant osseous lesions. OTHER: Normal. No additional imaging findings. CONCLUSION: 1. No radiopaque foreign object. Dictated by: Mauro Beebe MD on 08/31/2024 at 12:47 Continued Report - Page 2 of 2 Patient: TOD PABON Phone#: : 1960 Age: 64 Gender: M Pt. Type: ER Account: [id number] Location: 052 Ordering: DR. RIKI DIOR Exam Date: 08/30/2024/18:48 Family Phys: MayMarcio COREY Charge Code: [id number] Physician: [place] Order #: [id number] Dose#: 7.7 mGy Approved by: Mauro Beebe MD on 08/31/2024 at 13:06 [facility] NECK SOFT TISSUEon NECK [facility] TISSUE [place] [address] Patient: TOD PABON Phone#: : 1960 Age: 64 Gender: M Pt. Type: ER Account: [id number] Location: 2 Ordering: DR. RIKI DIOR Exam Date: 08/30/2024/15:56 Family Phys: SHERYL Oliver [place] Charge Code: [id number] Physician: [place] Order #: [id number] Dose#: PROCEDURE: X-RAY NECK SOFT TISSUE COMPARISON: None. INDICATIONS: Foreign body. FINDINGS: SOFT TISSUES: Negative. No visible soft tissue swelling. OTHER: There is no evidence of radio opaque foreign body. CONCLUSION: 1. Radiopaque foreign body is not identified. Dictated by: Rehana Roldan MD on 08/30/2024 at 16:09 Approved by: Rehana Roldan MD on 08/30/2024 at 16:10 [facility] US AORTAon 08-18-2024 [place] [address] Patient: TOD PABON Phone#: : 1960 Age: 64 Gender: M Pt. Type: Out Account: [id number] Location: Ordering: SATHYA GOVEA Exam Date: 08/18/2024/7:35 Family Phys: Charge Code: [id number] Physician: [place] Order #: [id number] Dose#: PROCEDURE: AORTA ULTRASOUND COMPARISON: None. INDICATIONS: Screening for abdominal aortic aneurysm. TECHNIQUE: Ultrasound was performed of the abdominal aorta. FINDINGS: AORTA: Limited visualization of a short segment of mid aorta secondary to shadowing bowel gas. Otherwise no aneurysm, significant atherosclerosis, or visible occlusion. Proximal aorta: 2.6 x 3.3 cm Mid aorta: 2.2 x 2.5 cm Distal aorta: 2.0 x 2.5 cm Left iliac artery: 1.6 x 1.5 cm Right iliac artery: 1.7 x 1.5 cm OTHER: Negative. CONCLUSION: 1. No appreciable aortic aneurysm Dictated by: Mauro Beebe MD on 08/21/2024 at 17:47 Approved by: Mauro Beebe MD on 08/21/2024 at 17:50 Normal [facility] CBC + DIFFon 08-10-2024 Baso # 0.03 x10EE3/UL Normal 0.00 - 0.10 [facility] Comment on above: Performed By: #### 2 17768 #### [facility],[address] [place] [address] Basophils/100 WBC (Bld) 0.6 % Normal 0.0 - 2.0 [facility] Comment on above: Performed By: #### 2 09518 #### [facility],[address] [place] [address] CBC + DIFF Normal [facility] Comment on above: Result Comment: CBC- COMPLETE BLOOD COUNT Performed By: #### 2 19765 #### [facility],[address] [place] [address] EO # 0.33 x10EE3/UL Normal 0.00 - 0.50 [facility] Comment on above: Performed By: #### 2 16790 #### [facility],[address] [place] [address] Eosinophils/100 WBC (Bld) 6.4 % Normal 0.0 - 7.0 [facility] Comment on above: Performed By: #### 2 33729 #### [facility],[address] [place] [address] Erythrocyte distribution width (RBC) [Ratio] 13.1 % Normal 12.0 - 15.6 [facility] Comment on above: Performed By: #### 2 75972 #### [facility],[address] [place], [place] [address] Hematocrit (Bld) [Volume fraction] 43.9 % Normal 40.0 - 52.0 [facility] Comment on above: Performed By: #### 2 81722 #### [facility],[address] [place], [place] [address] Hemoglobin (Bld) [Mass/Vol] 15.5 g/dL Normal 13.0 - 17.5 [facility] Comment on above: Performed By: #### 2 80917 #### [facility],[address] [place] [address] Lymph # 1.52 x10EE3/UL Normal 0.80 - 2.80 [facility] Comment on above: Performed By: #### 2 06821 #### [facility],[address] [place] [address] Lymphocytes/100 WBC (Bld) 29.4 % Normal 20.0 - 45.0 [facility] Comment on above: Performed By: #### 2 85294 #### [facility],[address] [place], [place] [address] MANUAL DIFF N/A Normal [facility] Comment on above: Performed By: #### 2 38723 #### [facility],[address] [place], [place] [address] MCH (RBC) [Entitic mass] 32 pg Normal 27 - 33 [facility] Comment on above: Performed By: #### 2 00835 #### [facility],[address] [place], [place] [address] MCHC 35 X10 3 Normal 32 - 36 [facility] Comment on above: Performed By: #### 2 69807 #### [facility],[address] [place], [place] [address] MCV (RBC) [Entitic vol] 90 fL Normal 81 - 98 [facility] Comment on above: Performed By: #### 2 59601 #### [facility],[address] [place] [address] [place] # 0.48 x10EE3/UL Normal 0.20 - 1.00 [facility] Comment on above: Performed By: #### 2 45622 #### [facility],[address] [place] [address] MONOS % 9.3 % Normal 0.0 - 10.0 [facility] Comment on above: Performed By: #### 2 22774 #### [facility],[address] [place] [address] Morphology Shahbaz (Bld) [Interp] N/A Normal [facility] Comment on above: Performed By: #### 2 32726 #### [facility],[address] [place] [address] Neut # 2.81 x10EE3/UL Normal 1.50 - 7.10 [facility] Comment on above: Performed By: #### 2 78150 #### [facility],[address] [place] [address] Neutrophils/100 WBC (Bld) 54.3 % Normal 46.0 - 76.0 [facility] Comment on above: Performed By: #### 2 58418 #### [facility],[address] [place] [address] PLATELET 205 x10EE3/UL Normal 150 - 450 [facility] Comment on above: Performed By: #### 2 61556 #### [facility],[address] [place] [address] Platelet mean volume (Bld) [Entitic vol] 9.4 fL Normal 6.4 - 10.5 [facility] Comment on above: Result Comment: AUTO MATED DIFFERENTIAL Performed By: #### 2 64663 #### [facility],[address] [place] [address] RBC 4.90 x 10EE6/UL Normal 4.50 - 6.00 [facility] Comment on above: Performed By: #### 2 32535 #### [facility],[address] [place] [address] WBC 5.2 x 10EE3/UL Normal 4.5 - 10.8 [facility] Comment on above: Performed By: #### 2 66405 #### [facility],[address] [place] [address] CMP with eGFRon 08-10-2024 AGE 64 years Normal [facility] Comment on above: Performed By: #### 2 04582 #### [facility],[address] [place] [address] Albumin [Mass/Vol] 3.8 g/dL Normal 3.4 - 5.0 [facility] Comment on above: Performed By: #### 2 94231 #### [facility],[address] [place] [address] Albumin/Globulin [Mass ratio] 1.1 {ratio} Normal 0.9 - 1.6 [facility] Comment on above: Performed By: #### 2 11760 #### [facility],[address] [place] [address] ALK PHOS 63 U/L Normal 46 - 116 [facility] Comment on above: Performed By: #### 2 42709 #### [facility],[address] [place] [address]679 ALT [Catalytic activity/Vol] 37 U/L Normal 16 - 63 [facility] Comment on above: Performed By: #### 2 30680 #### [facility],[address] [place] [address]91 Anion gap [Moles/Vol] 12 mmol/L Normal 10 - 20 [facility] Comment on above: Performed By: #### 2 68283 #### [facility],[address] [place] [address] 10726 AST [Catalytic activity/Vol] 33 U/L Normal 15 - 37 [facility] Comment on above: Performed By: #### 2 23700 #### [facility],[address] [place] [address]89 B/C RATIO 19 ratio Normal 0 - 30 [facility] Comment on above: Performed By: #### 2 75589 #### [facility],[address] [place] [address] Bilirubin [Mass/Vol] 1.7 mg/dL High 0.2 - 1.0 [facility] Comment on above: Performed By: #### 2 27335 #### [facility],[address] [place] [address]63 Calcium [Mass/Vol] 8.5 mg/dL Normal 8.5 - 10.1 [facility] Comment on above: Performed By: #### 2 67374 #### [facility],[address] [place] [address] 79885 Chloride [Moles/Vol] 106 mmol/L Normal 98 - 107 [facility] Comment on above: Performed By: #### 2 34069 #### [facility],[address] [place] [address]107 CMP with eGFR Normal [facility] Comment on above: Result Comment: COMP REHENSIVE METABOLIC PANEL Performed By: #### 2 54126 #### [facility],[address] [place] [address]776 CO2 [Moles/Vol] 25.3 mmol/L Normal 21.0 - 32.0 [facility] Comment on above: Performed By: #### 2 80638 #### [facility],[address] [place] [address]255 Creatinine [Mass/Vol] 0.78 mg/dL Normal 0.70 - 1.30 [facility] Comment on above: Performed By: #### 2 56384 #### [facility],[address] [place] [address]459 GFR/1.73 sq M.predicted among non-blacks MDRD (S/P/Bld) [Vol rate/Area] mL/min/{1.73_m2} Normal 60 - 999 [facility] Comment on above: Performed By: #### 2 51152 #### [facility],[address] [place] [address] Result Comment: ACCO RDING TO THE NATIONAL KIDNEY DISEASE EDUCATION PROGRAM(NKDE), A NORMAL eGFR IS A VALUE GREATER THAN OR EQUAL TO 60 ML/MIN/1.73 SQ METERS. CHRONIC KIDNEY DISEASE: <60mL/MIN/1.73 SQ METERS KIDNEY FAILURE: <15mL/MIN/1.73 SQ METERS THIS TEST SHOULD ONLY BE USED FOR PATIENTS 18 YEARS OF AGE AND OLDER. Globulin (S) [Mass/Vol] 3.6 g/dL Normal 1.5 - 3.8 [facility] Comment on above: Performed By: #### 2 83891 #### [address] [address] Glucose [Mass/Vol] 88 mg/dL Normal 74 - 106 [facility] Comment on above: Performed By: #### 2 84542 #### [address] [address] Potassium [Moles/Vol] 4.0 mmol/L Normal 3.5 - 5.1 [facility] Comment on above: Performed By: #### 2 78903 #### [facility],[address] [place] [address] 30102 Protein [Mass/Vol] 7.4 g/dL Normal 6.4 - 8.2 [facility] Comment on above: Performed By: #### 2 88349 #### [facility],[address] [place] [address]9713 Sodium [Moles/Vol] 139 mmol/L Normal 136 - 145 [facility] Comment on above: Performed By: #### 2 17923 #### [facility],[address] [place] [address] 62296 Urea nitrogen [Mass/Vol] 15 mg/dL Normal 7 - 18 [facility] Comment on above: Performed By: #### 2 59184 #### [facility],[address] [place] [address]198 LIPID PROFILEon 08-10-2024 Cholesterol [Mass/Vol] 127 mg/dL Normal 0 - 240 [facility] Comment on above: Performed By: #### 2 68460 #### [facility],[address] [place] [address] 85948 Cholesterol in HDL [Mass/Vol] 40 mg/dL Normal 40 - 60 [facility] Comment on above: Performed By: #### 2 11177 #### [facility],[address] [place] [address]129 Cholesterol in LDL [Mass/Vol] 72 mg/dL Normal 0 - 129 [facility] Comment on above: Performed By: #### 2 15688 #### [facility],[address] [place] [address]195 Cholesterol.total/Guera sterol in HDL [Mass ratio] 3.2 {ratio} Normal 0.0 - 5.0 [facility] Comment on above: Performed By: #### 2 70799 #### [facility],[address] [place] [address] 40047 Lipid 1996 panel Normal [facility] Comment on above: Result Comment: LIPI D PROFILE Performed By: #### 2 46337 #### [facility],[address] [place] [address]6940 Triglyceride [Mass/Vol] 73 mg/dL Normal 0 - 150 [facility] Comment on above: Performed By: #### 2 24853 #### [facility],[address] [place] [address] 76071 T4-FREE (FREE THYROXINE)on 0 08-10-2024 Free T4 [Mass/Vol] 1.31 ng/dL Normal 0.76 - 1.46 [facility] Comment on above: Result Comment: P otential of falsely elevated results when biotin concentrations are > 10 ng/mL. Performed By: #### 2 98064 #### [facility],[address] [place] [address]33 TSHon 08-10-2024 TSH Qn 0.96 m[IU]/L Normal 0.35 - 3.74 [facility] Comment on above: Performed By: #### 2 99802 #### [facility],[address] [place] [address] URINALYSIS WITH MICROSCOPYon 08-10-2024 Amorphous NONE Normal [facility] Comment on above: Performed By: #### 2 68173 #### [facility],[address] [place] [address] Bacteria TRACE Normal [facility] Comment on above: Performed By: #### 2 77106 #### [facility],[address] [place] [address] Bilirubin Ql (U) Negative Normal NORMAL: NEGATIVE [facility] Comment on above: Performed By: #### 2 59346 #### [facility],[address] [place], [place] [address] Casts NONE Normal [facility] Comment on above: Performed By: #### 2 69231 #### [facility],[address] [place], [place] [address] Clarity (U) clear Normal NORMAL: CLEAR [facility] Comment on above: Performed By: #### 2 45207 #### [facility],[address] [place], [place] [address] Color (U) yellow Normal NORMAL: YELLOW [facility] Comment on above: Performed By: #### 2 39230 #### [facility],[address] [place], [place] [address] Crystals LM Nom (Urine sed) NONE Normal [facility] Comment on above: Performed By: #### 2 91685 #### [facility],[address] [place], [place] [address] Epi Cells RARE Normal [facility] Comment on above: Performed By: #### 2 67844 #### [facility],[address] [place] [address] 87136 Glucose Ql (U) NORM Normal NORMAL: NORMAL [facility] Comment on above: Performed By: #### 2 31427 #### [facility],[address] [place] [address] 79390 Hemoglobin Ql (U) Negative Normal NORMAL: NEGATIVE [facility] Comment on above: Performed By: #### 2 42291 #### [facility],[address] [place] [address] 47105 Ketone Negative Normal NORMAL: NEGATIVE [facility] Comment on above: Performed By: #### 2 24681 #### [facility],[address] [place] [address] 73998 Leukocytes Negative Normal NORMAL: NEGATIVE [facility] Comment on above: Result Comment: URIN E MICROSCOPIC Performed By: #### 2 01985 #### [facility],[address] [place] [address] 39373 Mucous NONE Normal [facility] Comment on above: Performed By: #### 2 35043 #### [facility],[address] [place] [address] 01051 Nitrite Ql (U) Negative Normal NORMAL: NEGATIVE [facility] Comment on above: Performed By: #### 2 45717 #### [facility],[address] [place] [address] 94117 pH (U) 7 [pH] Normal NORMAL: 5.0-8.0 [facility] Comment on above: Performed By: #### 2 54864 #### [facility],[address] [place] [address] 99732 Protein Ql (U) Negative Normal NORMAL: NEGATIVE [facility] Comment on above: Performed By: #### 2 84094 #### [facility],[address] [place] [address] 25012 Rbc 0-5 Normal 0-3 / hpf [facility] Comment on above: Performed By: #### 2 44362 #### [facility],[address] [place] [address] 88493 Sp [place] 1.005 Low NORMAL: 1.010-1.030 [facility] Comment on above: Performed By: #### 2 80340 #### [facility],[address] [place] [address] Specimen Type R Normal [facility] Comment on above: Performed By: #### 2 35140 #### [facility],[address] [place] [address] URINALYSIS WITH MICROSCOPY Normal [facility] Comment on above: Result Comment: URIN ALYSIS Performed By: #### 2 86295 #### [facility],[address] [place] [address] Urobilinog NORM Normal NORMAL: NORMAL [facility] Comment on above: Performed By: #### 2 87380 #### [facility],[address] [place] [address] 27993 Wbc 1-5 Normal 0-5 / hpf [facility] Comment on above: Performed By: #### 2 00345 #### [facility],[address] [place] [address] 00252 Yeast NONE Normal [facility] Comment on above: Performed By: #### 2 57800 #### [facility],[address] [place] [address] 56532 VITAMIN D, 25 HYDROXYon 06 VitD 43.00 ng/mL Normal 30.00 - 100 [facility] Comment on above: Result Comment: 25-O HD3 indicates both endogenous production and supplementation. 25-OHD2 is an indicator of exogenous sources, such as diet or supplementation. Therapy is based on measurement of Total 25-OHD, with levels <20 ng/mL indicative of Vitamin D deficiency, while levels between 20 ng/mL and 30 ng/mL suggest insufficiency. Optimal levels are >=30ng/mL. Vitamin D, 25-OH D3 Not Established Vitamin D, 25-OH D2 Not Established Performed By: #### 2 75751 #### [facility],[address] [place] [address] 33620 CBC + DIFFon 01-26-2024 Baso # 0.03 x10EE3/UL Normal 0.00 - 0.10 [facility] Comment on above: Performed By: #### 2 80432 #### [facility],[address] [place] [address] 44035 Basophils/100 WBC (Bld) 0.6 % Normal 0.0 - 2.0 [facility] Comment on above: Performed By: #### 2 05341 #### [facility],[address] [place] [address] 97796 CBC + DIFF Normal [facility] Comment on above: Result Comment: CBC- COMPLETE BLOOD COUNT Performed By: #### 2 29834 #### [facility],[address] [place] [address] 61043 EO # 0.19 x10EE3/UL Normal 0.00 - 0.50 [facility] Comment on above: Performed By: #### 2 47660 #### [facility] [facility],[address] [place] [address] 24500 Eosinophils/100 WBC (Bld) 3.4 % Normal 0.0 - 7.0 [facility] Comment on above: Performed By: #### 2 [id number] #### [facility],[address] [place] [address] 26199 Erythrocyte distribution width (RBC) [Ratio] 13.1 % Normal 12.0 - 15.6 [facility] Comment on above: Performed By: #### 2 15221 #### [facility],[address] [place] [address] 28701 Hematocrit (Bld) [Volume fraction] 46.0 % Normal 40.0 - 52.0 [facility] Comment on above: Performed By: #### 2 01448 #### [facility],[address] [place] [address] 31055 Hemoglobin (Bld) [Mass/Vol] 15.4 g/dL Normal 13.0 - 17.5 [facility] Comment on above: Performed By: #### 2 89422 #### [facility],[address] [place], [place] [id number] Lymph # 1.65 x10EE3/UL Normal 0.80 - 2.80 [facility] Comment on above: Performed By: #### 2 99531 #### [facility],[address] [place], [place] [id number] Lymphocytes/100 WBC (Bld) 29.1 % Normal 20.0 - 45.0 [facility] Comment on above: Performed By: #### 2 67788 #### [facility],[address] [place], [place] [id number] MANUAL DIFF N/A Normal [facility] Comment on above: Performed By: #### 2 98857 #### [facility],[address] [place] [address] 49630 MCH (RBC) [Entitic mass] 30 pg Normal 27 - 33 [facility] Comment on above: Performed By: #### 2 69753 #### [facility],[address] [place] [address] 97413 MCHC 34 X10 3 Normal 32 - 36 [facility] Comment on above: Performed By: #### 2 77775 #### [facility],[address] [place] [address] 94593 MCV (RBC) [Entitic vol] 90 fL Normal 81 - 98 [facility] Comment on above: Performed By: #### 2 49099 #### [facility],[address] [place] [address] 70406 [place] # 0.48 x10EE3/UL Normal 0.20 - 1.00 [facility] Comment on above: Performed By: #### 2 62845 #### [facility],[address] [place] [address] 45396 MONOS % 8.4 % Normal 0.0 - 10.0 [facility] Comment on above: Performed By: #### 2 46829 #### [facility],[address] [place] [address] 79615 Morphology Shahbaz (Bld) [Interp] N/A Normal [facility] Comment on above: Performed By: #### 2 08618 #### [facility],[address] [place] [address] 33925 Neut # 3.33 x10EE3/UL Normal 1.50 - 7.10 [facility] Comment on above: Performed By: #### 2 44077 #### [facility],[address] [place] [address] 61928 Neutrophils/100 WBC (Bld) 58.5 % Normal 46.0 - 76.0 [facility] Comment on above: Performed By: #### 2 27057 #### [facility],[address] [place] [address] 56485 PLATELET 214 x10EE3/UL Normal 150 - 450 [facility] Comment on above: Performed By: #### 2 48467 #### [facility],[address] [place] [address] 46395 Platelet mean volume (Bld) [Entitic vol] 8.5 fL Normal 6.4 - 10.5 [facility] Comment on above: Result Comment: AUTO MATED DIFFERENTIAL Performed By: #### 2 62999 #### [facility],[address] [place] [address] 30146 RBC 5.12 x 10EE6/UL Normal 4.50 - 6.00 [facility] Comment on above: Performed By: #### 2 53316 #### [facility],[address] [place] [address] 47663 WBC 5.7 x 10EE3/UL Normal 4.5 - 10.8 [facility] Comment on above: Performed By: #### 2 00987 #### [facility],[address] [place] [address] 24229 CMP with eGFRon 01-26-2024 AGE 63 years Normal [facility] Comment on above: Performed By: #### 2 68554 #### [facility],[address] [place] [address] 22471 Albumin [Mass/Vol] 3.8 g/dL Normal 3.4 - 5.0 [facility] Comment on above: Performed By: #### 2 26967 #### [facility],[address] [place] [address] 95268 Albumin/Globulin [Mass ratio] 1.0 {ratio} Normal 0.9 - 1.6 [facility] Comment on above: Performed By: #### 2 89289 #### [facility],[address] [place] [address] 76679 ALK PHOS 65 U/L Normal 46 - 116 [facility] Comment on above: Performed By: #### 2 64096 #### [facility],[address] [place] [address] 96991 ALT [Catalytic activity/Vol] 32 U/L Normal 16 - 63 [facility] Comment on above: Performed By: #### 2 20370 #### [facility],[address] [place] [address] 13242 Anion gap [Moles/Vol] 9 mmol/L Low 10 - 20 [facility] Comment on above: Performed By: #### 2 71170 #### [facility],[address] [place] [address] 79515 AST [Catalytic activity/Vol] 20 U/L Normal 15 - 37 [facility] Comment on above: Performed By: #### 2 98591 #### [facility],[address] [place] [address] 61415 B/C RATIO 14 ratio Normal 0 - 30 [facility] Comment on above: Performed By: #### 2 35465 #### [facility],[address] [place] [address] 49576 Bilirubin [Mass/Vol] 1.5 mg/dL High 0.2 - 1.0 [facility] Comment on above: Performed By: #### 2 70089 #### [facility],[address] [place] [address] 98457 Calcium [Mass/Vol] 8.8 mg/dL Normal 8.5 - 10.1 [facility] Comment on above: Performed By: #### 2 95672 #### [facility],[address] [place] [address] 43475 Chloride [Moles/Vol] 104 mmol/L Normal 98 - 107 [facility] Comment on above: Performed By: #### 2 93735 #### [facility],[address] [place] [address] 12789 CMP with eGFR Normal [facility] Comment on above: Result Comment: COMP REHENSIVE METABOLIC PANEL Performed By: #### 2 63317 #### [facility],[address] [place] [address] 37610 CO2 [Moles/Vol] 29.9 mmol/L Normal 21.0 - 32.0 [facility] Comment on above: Performed By: #### 2 38282 #### [facility],[address] [place] [address] 18773 Creatinine [Mass/Vol] 1.02 mg/dL Normal 0.70 - 1.30 [facility] Comment on above: Performed By: #### 2 57814 #### [facility],[address] [place] [address] 99019 GFR/1.73 sq M.predicted among non-blacks MDRD (S/P/Bld) [Vol rate/Area] mL/min/{1.73_m2} Normal 60 - 999 [facility] Comment on above: Performed By: #### 2 74314 #### [facility],[address] [place] [address] 84812 Result Comment: ACCO RDING TO THE NATIONAL KIDNEY DISEASE EDUCATION PROGRAM(NKDE), A NORMAL eGFR IS A VALUE GREATER THAN OR EQUAL TO 60 ML/MIN/1.73 SQ METERS. CHRONIC KIDNEY DISEASE: <60mL/MIN/1.73 SQ METERS KIDNEY FAILURE: <15mL/MIN/1.73 SQ METERS THIS TEST SHOULD ONLY BE USED FOR PATIENTS 18 YEARS OF AGE AND OLDER. Globulin (S) [Mass/Vol] 3.9 g/dL High 1.5 - 3.8 [facility] Comment on above: Performed By: #### 2 73161 #### [address] [address] Glucose [Mass/Vol] 95 mg/dL Normal 74 - 106 [facility] Comment on above: Performed By: #### 2 68930 #### [address] [address] Potassium [Moles/Vol] 4.1 mmol/L Normal 3.5 - 5.1 [facility] Comment on above: Performed By: #### 2 31471 #### [address] [address] Protein [Mass/Vol] 7.7 g/dL Normal 6.4 - 8.2 [facility] Comment on above: Performed By: #### 2 52067 #### [address] [address] Sodium [Moles/Vol] 139 mmol/L Normal 136 - 145 [facility] Comment on above: Performed By: #### 2 24966 #### [address] [address] Urea nitrogen [Mass/Vol] 14 mg/dL Normal 7 - 18 [facility] Comment on above: Performed By: #### 2 24429 #### [address] [address] LIPID PROFILEon 11-27-2024 Cholesterol [Mass/Vol] 136 mg/dL Normal 0 - 240 [facility] Comment on above: Performed By: #### 2 99951 #### [facility],[address] [place] [address] 03630 Cholesterol in HDL [Mass/Vol] 41 mg/dL Normal 40 - 60 [facility] Comment on above: Performed By: #### 2 64079 #### [facility],[address] [place] [address] 22069 Cholesterol in LDL [Mass/Vol] 82 mg/dL Normal 0 - 129 [facility] Comment on above: Performed By: #### 2 73447 #### [facility],[address] [place] [address] 28317 Cholesterol.total/Guera sterol in HDL [Mass ratio] 3.3 {ratio} Normal 0.0 - 5.0 [facility] Comment on above: Performed By: #### 2 45940 #### [facility],[address] [place] [address] 68249 Lipid 1996 panel Normal [facility] Comment on above: Result Comment: LIPI D PROFILE Performed By: #### 2 72358 #### [facility],[address] [place] [address] 94763 Triglyceride [Mass/Vol] 64 mg/dL Normal 0 - 150 [facility] Comment on above: Performed By: #### 2 76174 #### [facility],[address] [place] [address] 22548 TSHon 01-26-2024 TSH Qn 4.98 m[IU]/L High 0.35 - 3.74 [facility] Comment on above: Performed By: #### 2 57831 #### [facility],[address] [place] [address] 13210 VITAMIN D, 25 HYDROXYon 12-31 VitD 34.00 ng/mL Normal 30.00 - 100 [facility] Comment on above: Result Comment: 25-O HD3 indicates both endogenous production and supplementation. 25-OHD2 is an indicator of exogenous sources, such as diet or supplementation. Therapy is based on measurement of Total 25-OHD, with levels <20 ng/mL indicative of Vitamin D deficiency, while levels between 20 ng/mL and 30 ng/mL suggest insufficiency. Optimal levels are >=30ng/mL. Vitamin D, 25-OH D3 Not Established Vitamin D, 25-OH D2 Not Established Performed By: #### 2 09379 #### [facility],[address] [facility] [address] Absolute lymphocyte countOrd ered By: Dr. Siu on 07-26-2022 Lymphocytes Auto (Unsp spec) [#/Vol] 1.86 10*3/uL 0.83-4.[address] [facility] Basophil percentageOrdered B y: Dr. Siu on 07-26-2022 Basophils/100 WBC (Bld) 0.4 % 0-1 [facility] Chloride [Moles/Vol] 110 mmol/L 98-107 [facility] Eosinophils/100 WBC (Bld) 3.1 % 0-[address] [facility] Glucose [Mass/Vol] 133 mg/dL 74-[address] [facility] Comment on above: Fasting Glucose resu lt greater than or equal to 126 mg/dL suggests DIABETES MELLITUS per A.D.A. criteria. Neutrophils (Bld) [#/Vol] 4.1 10*3/uL 2.0-7.[address] [facility] Neutrophils/100 WBC (Bld) 60.6 % 47-[address] [facility] Potassium [Moles/Vol] 4.0 mmol/L 3.5-5.1 [facility] Sodium [Moles/Vol] 143 mmol/L 136-[address] [facility] WBC (Bld) [#/Vol] 6.7 10*3/uL 4.4-11.[address] [facility] Blood erythrocytes count (nu mber/volume)Ordered By: Dr. Siu on 07-26-2022 RBC (Bld) [#/Vol] 4.82 10*6/uL 4.6-6.2 [facility] Blood hemoglobin measurement (mass/volume)Ordered By: Dr. Siu on 07-26-2022 Hemoglobin (Bld) [Mass/Vol] 14.7 g/dL 13.0-16.[address] [facility] Blood lymphocytes/100 leukoc ytesOrdered By: Dr. Siu on 07-26-2022 Lymphocytes/100 WBC (Bld) 27.8 % 19-[address] [facility] Blood monocytes/100 leukocyt esOrdered By: Dr. Siu on 07-26-2022 Monocytes/100 WBC (Bld) 7.8 % 0-10 [facility] Blood platelet mean volumeOr dered By: Dr. Siu on 07-26-2022 Platelet mean volume (Bld) [Entitic vol] 11.2 fL 6.2-12.[address] [facility] Determination of erythrocyte mean corpuscular volume (MCV)Ordered By: Dr. Siu on 07-26-2022 MCV (RBC) [Entitic vol] 90.0 fL 80-94 [facility] Hematocrit Auto (Bld) [Volum e fraction]Ordered By: Dr. Siu on 07-26-2022 Hematocrit (Bld) [Volume fraction] 43.4 % 40-[address] [facility] Laboratory - Chemistry and C hemistry - challengeOrdered By: Dr. Siu on 07-26-2022 CO2 [Moles/Vol] 25.0 mmol/L 21.0-32.[address] [facility] Urea nitrogen/Creatinine [Mass ratio] 22.4 mg/mg 10-[address] [facility] Laboratory - Hematology and Cell countsOrdered By: Dr. Siu on 07-26-2022 Erythrocyte distribution width (RBC) [Entitic vol] 40.7 fL 35.1-43.[address] [facility] Erythrocyte distribution width (RBC) [Ratio] 12.3 % 11.6-14.[address] [facility] Immature granulocytes/100 WBC (Bld) 0.300 % 0.0-0.[address] [facility] Comment on above: IG% - Immature Granu locytes (promyelocytes, myelocytes and metamyelocytes) > 1% indicates that a LEFT SHIFT is Present. MCH (RBC) [Entitic mass] 30.5 pg 27.0-32.[address] [facility] Nucleated RBC/100 WBC (Bld) [Ratio] 0 % 0-[address] [facility] MCHC Auto (RBC) [Mass/Vol]Or dered By: Dr. Siu on 07-26-2022 MCHC (RBC) [Mass/Vol] 33.9 g/dL 32-36 [facility] No Panel InformationOrdered By: Dr. Siu on 07-26-2022 Estimated Creatinine Clearance Calc 83.17 ml/min [facility] Estimated GFR (MDRD) Amer 117 mL/min >[address] [facility] Comment on above: GFR Calc Estimated GFR (MDRD) Non-Af Amer 97 mL/min >[address] [facility] Comment on above: Non- GFR Calc Platelets bldOrdered By: Dr. Siu on 07-26-2022 Platelets (Bld) [#/Vol] 191 10*3/uL 150-[address] [facility] Serum or plasma calcium matilde urement (mass/volume)Ordered By: Dr. Siu on 07-26-2022 Calcium [Mass/Vol] 8.5 mg/dL 8.5-10.[address] [facility] Serum or plasma creatinine m easurement (mass/volume)Ordered By: Dr. Siu on 07-26-2022 Creatinine [Mass/Vol] 0.85 mg/dL 0.70-1.30 [facility] Comment on above: The validity of the calculated GFR & GFRAA in patients over 70 years has not been determined. Clinical correlation is essential. Serum or plasma urea nitroge n measurement (mass/volume)Ordered By: Dr. Siu on 07-26-2022 Urea nitrogen [Mass/Vol] 19 mg/dL 7-[address] [facility] Thin prep Papanicolaou smear with manual screeningOrdered By: Dr. Siu on 07-26-2022 Thin prep Papanicolaou smear with manual screening 8 5-[address] [facility] Vital Signs Date Time Vital Sign Value Performing Clinician Faci lity 09-03-2024 13:53-0400 Body height 170.[address] Sathya Govea MD Work Phone: [facility] 09-03-2024 13:53-0400 Body mass index (BMI) [Ratio] 33.8 kg/m2 Dr. Sathya Govea MD Work Phone: [facility] 09-03-2024 13:53-0400 Body temperature 98 [degF] Dr. Sathya Govea MD Work Phone: [facility] 09-03-2024 13:53-0400 Body weight 97.[address] Sathya Govea MD Work Phone: [facility] 09-03-2024 13:53-0400 Diastolic blood pressure 78 mm[Hg] Dr. Sathya Govea MD Work Phone: [facility] 09-03-2024 13:53-0400 Heart rate 83 /min Dr. Sathya Govea MD Work Phone: [facility] 09-03-2024 13:53-0400 Respiratory rate 18 /min Dr. Sathya Govea MD Work Phone: [facility] 09-03-2024 13:53-0400 SaO2% (BldA) [Mass fraction] 97 % Dr. Sathya Govea MD Work Phone: [facility] 09-03-2024 13:53-0400 Systolic blood pressure 116 mm[Hg] Dr. Sathya Govea MD Work Phone: [facility] 08-31-2024 09:19-0400 Body height 170.[address] Sathya Govea MD Work Phone: [facility] 08-31-2024 09:19-0400 Body mass index (BMI) [Ratio] 34.6 kg/m2 Dr. Sathya Govea MD Work Phone: [facility] 08-31-2024 09:19-0400 Body weight 100.[address] Sathya Govea MD Work Phone: [facility] 08-31-2024 09:19-0400 Diastolic blood pressure 71 mm[Hg] Dr. Sathya Govea MD Work Phone: [facility] 08-31-2024 09:19-0400 Heart rate 76 /min Dr. Sathya Govea MD Work Phone: [facility] 08-31-2024 09:19-0400 Respiratory rate 17 /min Dr. Sathya Govea MD Work Phone: [facility] 08-31-2024 09:19-0400 SaO2% (BldA) [Mass fraction] 95 % Dr. Sathya Govea MD Work Phone: [facility] 08-31-2024 09:19-0400 Systolic blood pressure 106 mm[Hg] Dr. Sathya Govea MD Work Phone: [facility] 07-26-2022 05:42-0400 Diastolic blood pressure 80 mm[Hg] [facility] 07-26-2022 05:42-0400 Heart rate 65 /min [facility] 07-26-2022 05:42-0400 Respiratory rate 15 /min [facility] 07-26-2022 05:42-0400 SaO2% (BldA) [Mass fraction] 97 % [facility] 07-26-2022 05:42-0400 Systolic blood pressure 133 mm[Hg] [facility] 07-26-2022 03:00-0400 Body height 171.45 cm [facility] 07-26-2022 03:00-0400 Body mass index (BMI) [Ratio] 32.8 kg/m2 [facility] 07-26-2022 03:00-0400 Body temperature 98.4 [degF] [facility] 07-26-2022 03:00-0400 Body weight 96.6 kg [facility] Encounters Encounter Date Encounter Type Care Provider Facility Start: 12-22-2024 End: 12-22-2024 ambulatory KELSEY BRAXTON Facility:[facility] Start: 12-21-2024 End: 12-22-[facility] Start: 12-13-2024 End: 12-13-2024 ambulatory KELSEY BRAXTON Facility:[facility] Start: 12-13-2024 End: 12-13-2024 ambulatory KELSEY BRAXTON Facility:[facility] Start: 10-24-2024 ambulatory No Primary Car e Physician Facility:[facility] Start: 09-29-2024 ambulatory MAY [facility] Start: 09-26-2024 End: 09-26-2024 ambulatory MAY [facility] Start: 09-18-2024 End: 09[facility]18[facility]: 09-14-[facility]24 End: 09-14-2024 ambulatory MAY [facility] Start: 09-11-2024 End: 09-11-2024 ambulatory MAY [facility] Start: 09-07-2024 End: 09-07-2024 Emergency department patient visit MAY [facility] Start: 09-04-2024 End: 09-04-[address] Sathya Govea MD Work Phone: -Laboratory Specimen Start: 09-04-2024 End: 09-04-2024 Patient encounter procedure Victor M Bills Katie [employer] -Laboratory Specimen Work Phone: Start: 09-03-2024 End: 09-03-2024 Patient encounter procedure Victor M Bills Katie [employer] Work Phone: Start: 09-03-2024 End: 09-04-[address] Sathya Govea MD Work Phone: -[facility] Start: 08-31-2024 End: 08-31-[address] Kwadwo Linares MD -[facility] Work Phone: Start: 08-31-2024 End: 08-31-[address] Sathya Govea MD Work Phone: -[facility] Start: 08-30-2024 End: 08-30-2024 Emergency department patient visit MAY [facility] Start: 08-18-2024 End: 08-18-2024 ambulatory SATHYA GOVEA [facility] Start: 08-10-2024 End: 08-10-2024 ambulatory BUTROS MD LATOUF [facility] Start: 07-19-2024 ambulatory [facility] Start: 01-26-2024 End: 01-26-2024 ambulatory SATHYA GOVEA [facility] Start: 07-26-2022 End: 07-26-2022 Emergency department patient visit [facility]-Emergency Department Procedures Date Procedure Procedure Detail Performing Clinician Start: 09-03-2024 Bacteria identificat ion test Dr. Sathya Govea MD Work Phone: Start: 08-10-2024 PSA screening SATHYA NELSON Comment on above: Performed By: #### 2 [id number] #### [facility],[address] [place] [address] Plan of Treatment Date Care Activity Detail Author Colonoscopy [facility] Patient Education ED BPV [facility] Work Phone: Patient referral [facility] Work Phone: [facility] Payers Date Payer Category Payer Self-pay [id number] 2024 Unknown [id number] 2024 Unknown [id number] 1959 Unknown [id number] 2.16.8 [id number] 1959 Unknown [id number] 2.16.8 [id number] 1959 Unknown [id number] 2.16.8 [id number] 1959 Unknown [id number] 2.16.8 40.1.005050.3.579.2.651 1959 Unknown [id number] 2.16.8 40.1.991465.3.579.2.651 1959 Unknown [id number] 2.16.8 40.1.495580.3.579.2.651 1959 Unknown [id number] 2.16.8 40.1.912459.3.579.2.651 1959 Unknown [id number] 2.16.8 40.1.629158.3.579.2.651 1959 Unknown [id number] 2.16.8 40.1.309172.3.579.2.651 1959 Unknown [id number] 2.16.8 40.1.152474.3.579.2.651 1959 Unknown [id number] 2.16.8 40.1.716078.3.579.2.651 1959 Unknown [id number] 2.16.8 40.1.282492.3.579.2.651 Unknown [id number] Unknown [id number] 2.16.8 [id number] Unknown [id number] 2.16.8 [id number] Unknown [id number] 2.16.8 [id number] Unknown [id number] 2.16.8 [id number] Unknown [id number] Social History Date Type Detail Facility Start: 07-26-2022 Tobacco smoking stat us MOIS Unknown if ever smoked [facility] Start: 1960 Sex Assigned At Male [facility] Start: 07-26-2022 End: 09-03-2024 Tobacco smoking status NHIS Never smoked tobacco (finding) [facility] Mental Status Date Assessment Result Facility 07-26-2022 Cognitive function Level Of Cons ciousness Awake;Alert;Appropriate;Follow s Commands [facility] Work Phone: Progress note 12-22-2024 Note Date & Type Note Facility 12-22-2024 Note HNO ID: [id number] Author: KELSEY BRAXTON MD Service: ? 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 He reports he has a high PVC burden and he reports he has an ejection fraction from 50-55%. Reports he is asymptomatic. We do not have further records regarding his cardiac history today and this is what he can recall. He would like to establish with [facility] cards. Reports he has not been diagnosed with HTN (however he is on lisinopril) and he is usually normotensive. He has a BP cuff at home. He has not been taking lisinopril for months. Interval events HDL mildly low. LDL 96 Hep B not immune Cards note from 06/30. Stress test 09/18 negative for inducible ischemia or infarct. Echo normal EF, wall motion. Holter 08/20 average HR 64. Minimum HR 39 while asleep. BP: He has started taking his BP med every other day. He is mostly in the 120-130/80's. Review of Systems PAIN ASSESSMENT: Negative for pain, history of chronic pain, or current treatment for a chronic pain condition. GENERAL: No weight loss, or fevers HEENT: Negative for frequent or significant headaches RESPIRATORY: Negative for cough, wheezing, shortness of breath CARDIOVASCULAR: Negative for chest pain, palpitations, PND or orthopnea GI: No nausea, vomiting, or diarrhea or abdominal pain. No IN bleeding or melana : No history of dysuria, frequency, urgency, or change in urine appearance NEURO: No history of headaches, numbness, weakness, or changes to vision or hearing Health maintenance: Anxiety Screening Never done DTaP,Tdap,Td Vaccine(1 - Tdap) Never done Colorectal Cancer Screening Never done Shingrix Vaccine(1 of 2) Never done Pneumococcal Vaccine: 50+(1 of 1 - PCV) Never done Medicare Annual Wellness Visit Never done Advance Directive Discussion Never done Allergies: ALLERGIES Allergen Reactions Prednisone Swelling inflamed kidney blood pressure elevated Medications: Cholecalciferol, Vitamin D3, (VITAMIN D) 25 mcg (1,000 unit) cap Take 1,000 Units by mouth once daily. Ascorbic Acid (VITAMIN C) 1,000 mg tablet Take 1,000 mg by mouth once daily. atorvastatin (LIPITOR) 10 mg tablet Take 0.5 tablets by mouth once daily. levothyroxine 125 mcg cap Take 1 capsule by mouth once daily. Zinc Gluconate 50 mg tablet Take 50 mg by mouth once daily. lisinopril 2.5 mg tablet Take 1 tablet by mouth once daily. fish oil/borage/flax/om3,6,9 1 (OMEGA 3-6-9 COMPLEX ORAL) Take 1 tablet by mouth once daily. ubidecarenone Q-10 (CO Q-10) 10 mg cap Take by mouth as needed (every other day). aspirin, enteric coated (ASPIRIN, ENTERIC COATED) 81 mg EC tablet Take 81 mg by mouth once daily. Past Medical History: PAST MEDICAL HISTORY Diagnosis Date Hyperlipemia Hypothyroidism Social History: SOCIAL HISTORY[1] Family History: Family History Problem Relation Age of Onset Heart Attack Mother Heart Attack Brother BP 138/100 Pulse 67 Resp 12 SpO2 98% General: Awake, alert, not in acute distress, obese EAR SPECIALIST: Answering questions appropriately. No abnormal posturing or positioning. Speech is normal. Strength grossly intact. RESP: Clear lungs bilateral with good air entry, No increased work of breathing CVS: RRR, No murmur. Pulses 2+. GI: Abdomen is soft, non distended, non tender. No masses or hepatomegaly appreciated. Skin/Other: No rashes or lesions. HEENT: pupils equal Extremities: No peripheral edema, swelling or erythema of lower extremities. Labs: Reviewed the following: Pertinent labs as outlined above Latest Ref Rn 12/13/2024 Protein, Total 6.3 - 8.0 g/dL 8.0 Albumin 3.9 - 4.9 g/dL 4.8 Calcium 8.5 - 10.2 mg/dL 9.4 Bilirubin, Total 0.2 - 1.3 mg/dL 1.3 Alkaline Phosphatase 38 - 113 U/L 63 AST 14 - 40 U/L 21 ALT 10 - 54 U/L 22 Glucose 74 - 99 mg/dL 94 BUN 9 - 24 mg/dL 12 Creatinine 0.73 - 1.22 mg/dL 0.84 Sodium 136 - 144 mmol/L 140 Potassium 3.7 - 5.1 mmol/L 4.8 Chloride 98 - 107 mmol/L 104 CO2 22 - 30 mmol/L 25 Anion Gap 8 - 15 mmol/L 11 eGFR >=60 mL/min/1.73m? 97 WBC 3.70 - 11.00 k/uL 6.53 RBC 4.20 - 6.00 m/uL 5.20 Hemoglobin 13.0 - 17.0 g/dL 15.8 Hematocrit 39.0 - 51.0 % 47.4 MCV 80.0 - 100.0 fL 91.2 MCH 26.0 - 34.0 pg 30.4 MCHC 30.5 - 36.0 g/dL 33.3 RDW-CV 11.5 - 15.0 % 12.9 Platelet Count 150 - 400 k/uL 236 MPV 9.0 - 12.7 fL 11.7 Absolute nRBC <0.01 k/uL <0.01 Total Cholesterol, Nonfasting <200 mg/dL 156 Triglycerides, Nonfasting <150 mg/dL 121 HDL Cholesterol, Nonfasting >39 mg/dL 38 (L) LDL Cholesterol Calculated, Nonfasting <100 mg/dL 96 Non HDL Cholesterol, Nonfasting < (more content not included)... [facility] Progress note 12-13-2024 Note Date & Type Note Facility 12-13-2024 Note HNO ID: [id number] Author: KELSEY BRAXTON MD Service: ? 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 He reports he has a high PVC burden and he reports he has an ejection fraction from 50-55%. Reports he is asymptomatic. We do not have further records regarding his cardiac history today and this is what he can recall. He would like to establish with [facility] cards. Reports he has not been diagnosed with HTN (however he is on lisinopril) and he is usually normotensive. He has a BP cuff at home. He has not been taking lisinopril for months. Review of Systems PAIN ASSESSMENT: Negative for pain, history of chronic pain, or current treatment for a chronic pain condition. GENERAL: No weight loss, or fevers HEENT: Negative for frequent or significant headaches RESPIRATORY: Negative for cough, wheezing, shortness of breath CARDIOVASCULAR: Negative for chest pain, palpitations, PND or orthopnea GI: No nausea, vomiting, or diarrhea or abdominal pain. No IN bleeding or melana : No history of dysuria, frequency, urgency, or change in urine appearance NEURO: No history of headaches, numbness, weakness, or changes to vision or hearing Health maintenance: Anxiety Screening Never done Hepatitis C Screening Never done HIV Screening Never done DTaP,Tdap,Td Vaccine(1 - Tdap) Never done Lipid Screening Never done Diabetes Screening Never done Prostate Cancer Screening Discussion Never done Colorectal Cancer Screening Never done Shingrix Vaccine(1 of 2) Never done Pneumococcal Vaccine: 50+(1 of 1 - PCV) Never done Medicare Annual Wellness Visit Never done Advance Directive Discussion Never done Influenza Vaccine(1) Never done Covid-19 Vaccine(1 - season) Never done Allergies: ALLERGIES Allergen Reactions Prednisone Swelling inflamed kidney blood pressure elevated Medications: Cholecalciferol, Vitamin D3, (VITAMIN D) 25 mcg (1,000 unit) cap Take 1,000 Units by mouth once daily. Ascorbic Acid (VITAMIN C) 1,000 mg tablet Take 1,000 mg by mouth once daily. Zinc Gluconate 50 mg tablet Take 50 mg by mouth once daily. fish oil/borage/flax/om3,6,9 1 (OMEGA 3-6-9 COMPLEX ORAL) Take 1 tablet by mouth once daily. ubidecarenone Q-10 (CO Q-10) 10 mg cap Take by mouth as needed (every other day). aspirin, enteric coated (ASPIRIN, ENTERIC COATED) 81 mg EC tablet Take 81 mg by mouth once daily. atorvastatin (LIPITOR) 10 mg tablet Take 0.5 tablets by mouth once daily. levothyroxine 125 mcg cap Take 1 capsule by mouth once daily. lisinopril 2.5 mg tablet Take 1 tablet by mouth once daily. Past Medical History: PAST MEDICAL HISTORY Diagnosis Date Hyperlipemia Hypothyroidism Social History: SOCIAL HISTORY[1] Family History: Family History Problem Relation Age of Onset Heart Attack Mother Heart Attack Brother BP 152/104 Pulse 70 Temp 36.6 ?C (97.9 ?F) (Temporal) Ht 165.7 cm (5' 5.25) Wt 100.2 kg (220 lb 12.8 oz) SpO2 98% BMI 36.46 kg/m? General: Awake, alert, not in acute distress EAR SPECIALIST: Answering questions appropriately. No abnormal posturing or positioning. Speech is normal. Strength grossly intact. RESP: Clear lungs bilateral with good air entry, No increased work of breathing CVS: RRR, No murmur. Pulses 2+. GI: Abdomen is soft, non distended, non tender. No masses or hepatomegaly appreciated. Skin/Other: No rashes or lesions. HEENT: pupils equal Extremities: No peripheral edema, swelling or erythema of lower extremities. Labs: Reviewed the following: Pertinent labs as outlined above Reviewed scanned labs, he had a borderline KATHLEEN iso bronchitis,has chronic mildly elevated bili. TSH high with normal T4. Imaging: Reviewed the following: None Assessment/Plan: ASSESSMENT/PLAN: 1. Encounter to establish care - ICD9: V65.8, ICD10: Z76.89 (primary diagnosis) Reviewed history above. Very limited history as we cannot access his records. Had him sign release of records form. Will have him return for follow up and review records. - LIPID PANEL, NONFASTING - COMPLETE BLOOD COUNT - COMPREHENSIVE METABOLIC PANEL - HEMOGLOBIN A1C - HIV 1/2 COMBO WITH REFLEX TO DIFFERENTIATION - HEP REMOTE PANEL BL - VITAMIN D 25 HYDROXY 2. Screening for depression - ICD9: V79.0, ICD10: Z13.31 neg - DEPRESSION SCREENING 3. Encounter for screening examination for other mental health and behavioral disorders - ICD9: V79.8, ICD10: Z13.39 neg - ANXIETY SCREENING 4. Liver cyst - ICD9: 573.8, ICD10: K76.89 Reports a hx of liver cyst with last imaging this last August. Will attempt to obtain rec (more content not included)... [facility] Evaluation note 08-31-2024 Note Date & Type Note Facility 08-31-2024 Evaluation note Diagnosis Onset Date Resolution Difficulty swallowing acute Singh 2024 9:00am Encounter for screening for malignant neoplasm of colon acute August 31, 2024 9 :00am Acute pharyngitis acute August 12:48pm [facility] Work Phone: Progress note 08-31-2024 Note Date & Type Note Facility 08-31-2024 Progress note [facility] Progress note 08-31-2024 Note Date & Type Note Facility 08-31-2024 Progress note Note Date/Time August 31, 2024 9:26a m [facility] [address] [place] [address] OFFICE VISIT Date of Service: 08/31/24 MR#: [id number] Acct: [id number] Name: TOD PABON Jr. Rep #: [id number] : 1960 Provider: Dr. Francisco Linares MD Age/Sex: 64/M Location: [facility] Status: Signed Intake Vital Signs 07/26/22 03:00 08/31/24 09:19 Height 5 ft 7.5 in 5 ft 7 in Weight: 221 lb BMI 34.6 BP 106/71 Blood Pressure Location Rt brachial Position Sitting Respiration 17 Pulse 76 Pulse Source Monitor Pulse Oximetry (%) 95 Oxygen Delivery Method room air Intake Visit Reasons: COLONOSCOPY Chief Complaint: c-scope/egd Is patient in pain?: No Allergies No Known Allergies Allergy (Verified 08/31/24 09:20) Have you fallen in the past year?: No PFSH Medical History (Updated 08/31/24 @ 09:17 by Kelsey Fernandez) Rheumatoid arthritis Thyroid disease Bradycardia Family History (Updated 08/31/24 @ 09:19 by Kelsey Fernandez) Mother Myocardial infarction Diabetes Sister Breast cancer Social History Smoking Status: Never smoker HPI HPI HPI: Patient is a 64-year-old male here for screening colonoscopy. His last colonoscopy was 8 to 9 years ago and polyps were removed. The patient is also here because he experiences dysphagia occasionally. He has difficulty swallowing pills sometimes and last night he was in the emergency room feeling like he had a blockage after swallowing fish. Today he feels like the blockage is gone but he feels like something may have been scratched as he has a sore throat. ROS General General: No weight change, appetite, fatigue, colon cancer, breast cancer or weakness HEENT HEENT: Yes difficulty swallowing; No eye injury, eye surgery, swollen glands or hoarseness Endo Endocrine: Yes thyroid disease; No diabetes mellitus, thyroid cancer, Hair loss, heat intolerance or cold intolerance Skin Skin: Yes rash and changing moles Musc Musculoskeletal: Yes arthritis and rheumatoid arthritis; No back problems, gout or joint pain Cardio Cardiovascular: No murmur, pacemaker, heart disease, atrial fibrillation, high blood pressure, heart attack, heart stent, palpitations, shortness of breath with exertion or chest pain Psych Psychiatric: No depression, anxiety or hearing voices Resp Respiratory: No shortness of breath, No sleep apnea, No cough, No COPD, No asthma, No emphysema and No wheezing Gastro Gastrointestinal: No abdominal pain, No nausea or vomiting, No diarrhea, No constipation, No blood in stool, No acid reflux, Yes hemorrhoids, No ulcers, No gallbladder problem and No black,tarry stools Elías Hematologic: No blood thinners, No blood disorders, No bleeding, No anemia and No blood clots Neuro Neurologic: No system reviewed and no additional complaints, except as documented, No as per HPI, No abnormal gait, No abnormal hearing, No abnormal movements, No abnormal speech, No behavioral changes, No burning sensations, No confusion, No convulsions, No disequilibrium, No dizziness, No localized weakness, No frequent falls, No headache(s), No lack of coordination, No loss ofvision, No memory loss, No numbness, No other visual disturbances, No radicular pain, No restless legs, No sensory deficit, No syncope, No tingling, No tremor(s), No weakness and No other Exam Const General: cooperative Orientation: alert and oriented x3 [facility] Head: normal to inspection Neck Neck: normal visual inspection and full ROM Chest Chest palpation & inspection: normal inspection of the chest Resp Effort & Inspection: normal respiratory effort Auscultation: clear to auscultation bilaterally Cardio Rate: regular rate Rhythm: regular rhythm GI Inspection: non-distended Palpation: soft and nontender Skin General: no rashes or lesions noted Neuro General: patient alert and patient oriented x3 Extrem General: full ROM Psych Appearance: grossly normal Mental Status: mental status grossly normal Assessment and Plan Assessment and Plan (1) Difficulty swallowing: Status: Acute Plan: Patient is having difficulty swallowing and had some food stuck yesterday. I discussed performing EGD with possible dilation. I discussed the risks of dilation including perforation and bleeding. (2) Encounter for screening for malignant neoplasm of colon: Status: Acute Plan: Plan for colonoscopy for evaluation for history of polyps. I explained endoscopy in detail to the patient. I explained the risks including but not limited to stroke or heart attack with anesthesia, perforation of the GI tract, bleeding, infection. I explained that any of these could necessitate further emergency surgery. The patient understands and all questions were answered sufficiently. The patient wishes to proceed with procedure. Kwadwo Linares MD Pager: [facility] [address] [place] [address], [address] [place] [address] Office: Orders: Orders Colonoscopy Today EGD Today Medications: Discontinued meclizine Discontinued Reason: Pt no longer taking 25 mg PO TID PRN 30 tabs 0RF dizziness Coding Level of Care Code Off vis,new,level 3 Diagnoses Difficulty swallowing R13.10 Encounter for screening for malignant neoplasm of colon Z12.11 Clinical Quality Measures Falls Risk Screening/Assistive Devices Have you fallen in the past year?: No 08/31/24 0926 <Electronically signed by Kwadwo hannah MD> Date _ Kwadwo Linares MD Cosigner Signature: Date (if applicable) CC: ~ [facility] Work Phone: Discharge summary 07-26-2022 Note Date & Type Note Facility 07-26-2022 Discharge summary Note Date/Time July 26, 2022 3:37a m [facility] Medical Records Department [address] [place] [address] Emergency Department Summary 07/26/22 MR#: [id number] Acct: [id number] Name: TOD PABON Jr. Rep #:[id number] : 1960 62 From: Mario Siu DO PCP: Dr. Sathya Govea MD Status:REG ER Location: ED HPI History of Present Illness Chief Complaint: Dizziness Narrative Narrative: 62-year-old male woke up tonight with vertiginous dizziness he states that he looks to the left and noted that everything was spinning. He tried to get up and states he became very dizzy. He vomited 4 times. He denies any chest pain or shortness of breath. Patient denies any lightheadedness. Patient states he has no history of vertigo. [facility] Medical History Bradycardia Home Medications aspirin 81 mg capsule 81 mg PO DAILY 07/26/22 [History Last Taken Unknown] atorvastatin 10 mg tablet 10 mg PO DAILY 07/26/22 [History Last Taken Unknown] levothyroxine 125 mcg tablet 125 mcg PO DAILY 07/26/22 [History Last Taken Unknown] meclizine 25 mg tablet 25 mg PO TID PRN dizziness #30 tabs 07/26/22 [Rx Last Taken Unknown] omega-3 fatty acids 1,000 mg PO DAILY 07/26/22 [History Last Taken Unknown] Allergy/AdvReac Type Severity Reaction Status Date / Time No Known Allergies Allergy Verified 07/26/22 03:03 Social History Smoking Status: Never smoker ROS ROS ED Review of Systems ROS Unobtainable: Denies due to encephalopathy or due to endotracheal tube Constitutional Constitutional ED: Denies subjective or sweats Eyes Eyes: Reports other Details: Vertiginous dizziness ENT ENT ED: Denies rhinorrhea or sore throat Cardiovascular Cardiovascular: Denies chest pain or palpitations Respiratory/Chest Respiratory/Chest: Denies cough or dyspnea Gastrointestinal Gastrointestinal: Reports nausea and vomiting; Denies abdominal pain Genitourinary Genitourinary ED: Denies dysuria or hematuria Musculoskeletal Musculoskeletal: Denies arthralgias Integumentary Denies abscess or Abrasions Neurologic Neurologic: Denies headache(s) or paresthesias EXAM Physical Exam Const Vital Signs: 07/26/22 03:00 07/26/22 04:18 Temperature 98.4 F Temperature Source Oral Pulse Rate 58 L 65 Respiratory Rate 16 15 Blood Pressure 148/75 H 133/80 H Blood Pressure Mean 99 97 Pulse Ox 99 97 Oxygen Delivery Method Room Air Room Air Positive well nourished General Appearance ED: NAD; Negative for pallor HEENT Reports moist mucous membranes HEENT Narrative: Positive Rosamond-Hallpike Eyes PERRL and EOMs intact bilaterally Chest Wall inspection of chest normal Resp normal respiratory effort and clear to auscultation bilaterally Auscultation: Negative for rales, rhonchi or wheezes Cardio regular rhythm Rate: bradycardia GI normal to inspection, nondistended, normoactive bowel sounds Extremity General Extremety ED: Negative for edema or tenderness General Extremity: Negative for edema Neuro oriented x3 and CN's II-XII intact bilaterally Sensorium / Orientation: alert Motor Exam: strength 5/5 throughout Psych mental status grossly normal Skin no rashes or lesions noted and no wounds General Skin Exam: Negative for jaundice or pallor MDM MDM MDM Narrative Medical decision making narrative: Patient presenting with vertiginous dizziness. Based on exam has benign positional vertigo. Patient medicated. Will obtain basic lab work since the patient has been vomiting. CBC and BMP within normal limits. On reevaluation the patient feels better after being medicated with meclizine and Phenergan. Heis ambulated in the hallway and has a stable gait. At this point I will discharge him home with prescription for meclizine. Return precautions discussed. Impression: 1. Benign positional vertigo Lab Data Attestation: I reviewed the patient's lab results. Labs: Laboratory Results - last 24 hr 07/26/22 07/26/22 03:15 03:15 WBC 6.7 RBC 4.82 Hgb 14.7 Hct 43.4 MCV 90.0 MCH 30.5 MCHC 33.9 RDW Std Deviation 40.7 RDW Coeff of Cyndee 12.3 Plt Count 191 MPV 11.2 Immature Gran % (Auto) 0.300 Neut % (Auto) 60.6 Lymph % (Auto) 27.8 [place] % (Auto) 7.8 Eos % (Auto) 3.1 Baso % (Auto) 0.4 Absolute Neuts (auto) 4.1 Absolute Lymphs (auto) 1.86 Nucleated RBC % 0 Sodium 143 Potassium 4.0 Chloride 110 H Carbon Dioxide 25.0 Anion Gap 8 BUN 19 H Creatinine 0.85 Estim Creat Clear Calc 83.17 Est GFR (MDRD) Af Amer 117 Est GFR (MDRD) Non-Af 97 BUN/Creatinine Ratio 22.4 H Glucose 133 H Calcium 8.5 Discharge Plan Triage Chief Complaint: Dizziness ED Provider: Mario Siu Dx/Rx/DC Orders Instructions: ED BPV Vertigo Prescriptions: New meclizine 25 mg tablet 25 mg PO TID PRN (Reason: dizziness) Qty: 30 0RF No Action atorvastatin 10 mg tablet 10 mg PO DAILY levothyroxine 125 mcg tablet 125 mcg PO DAILY Russell 3 Fish Oil Capsule 1,000 mg PO DAILY aspirin 81 mg Capsule 81 mg PO DAILY Primary Care Provider: Sathya Govea Referrals: Sathya Govea MD [Primary Care Provider] - Disposition Disposition: Home, Self Care What to do if you have Problems For any increased pain, shortness of breath, bleeding, nausea or vomiting, chestpain, or any unexpected problems, contact your Primary Care Provider. Call [facility] ([phone]) or report to the closest Emergency Room. Call 911 if necessary. 07/26/22 5127 <Electronically signed by Mario Siu DO> Cosigner Signature (if applicable): CC: Dr. Sathya Govea MD ~ Signed [facility] Work Phone: Evaluation note Note Date & Type Note Facility Evaluation note No assessment information availa ble [facility] Work Phone: Evaluation note Note Date & Type Note Facility Evaluation note Diagnosis Onset Date Resolution Difficulty swallowing acute Aug 9:00am Encounter for screening for malignant neoplasm of colon acute August 31, 2024 9 :00am [facility] Work Phone: Reason for referral (narrative) Note Date & Type Note Facility Reason for referral (narrative) No reason for referral information available [facility] Work Phone: Chief Complaint and Reason for Visit Chief Complaint dizziness Chief Complaint Admit Date COLONOSCOPY August 31, 2024 9:00a m Reason for Visit Admit Date Difficulty swallowing August 31, 2024 9:0 0am Encounter for screening for malignant ne oplasm of colon August 31, 2024 9:00am Chief Complaint Admit Date COLONOSCOPY August 31, 2024 9:00a m SORE THROAT September 03, 2024 12:48 pm Reason for Visit Admit Date Difficulty swallowing August 31, 2024 9:0 0am Encounter for screening for malignant ne oplasm of colon August 31, 2024 9:00am Acute pharyngitis September 03, 2024 12:48 pm Advance Directives No Advanced Directives Records Found Advance Directive Response Recorded Date/ Time Living Will Yes July 26, 2022 3 :05am Power of Photonics Engineering Technologist Yes July 26, 2022 3:05am Name of Medical Power of Photonics Engineering Technologist sister July 26, 2022 3:05am Family History No Family History Records Found Relationship Condition Age at Onset Recorded Date/T antoine mother Myocardial infarction Unknown Diabetes mellitus Unknown sister Malignant neoplasm of breast Unknown Summary Purpose Additional Source Comments Care Teams (unrecognized sec tion and content) Team Status: Active Member Role Status Dates Dr. Sathya Govea MD Primary Care Provider Active Team Status: Inactive Member Role Status Dates Dr. Sathya Govea MD Primary Care Provider Active Dr. Mario Siu DO Emergency Provider Active Team Status: Active Member Role/Relationship Status Dates Dr. Sathya Govea MD Primary Care Provider Active Team Status: Inactive Member Role/Relationship Status Dates Dr. Sathya Govea MD Primary Care Provider Active Start: August 31, 2024 End: August 31, 2024 Dr. Sathya Govea MD Referring Provider Active Start: August 31, 2024 End: August 31, 2024 Dr. Kwadwo Linares MD Attending Provider Active Start: August 31, 2024 End: August 31, 2024 Team Status: Inactive Member Role/Relationship Status Dates Dr. Sathya Govea MD Primary Care Provider Active Start: September 03, 2024 End: September 03, 2024 Dr. Sathya Govea MD Referring Provider Active Start: September 03, 2024 End: September 03, 2024 Victor M Wilson NP, [employer]-C Attending Provider Active S tart: September 03, 2024 End: September 03, 2024 Team Status: Inactive Member Role/Relationship Status Dates Dr. Sathya Govea MD Primary Care Provider Active Start: September 04, 2024 End: September 04, 2024 Victor M Wilson PAINTER [employer], [employer]C Attending Provider Active S tart: September 04, 2024 End: September 04, 2024 Victor M Wilson PAINTER [employer]AY, [employer] Referring Provider Active S tart: September 04, 2024 End: September 04, 2024 Goals (unrecognized section and content) Goals may be documented in a n alternate sectionGoals may be documented in an alternate sectionGoals may be documented in an alternate sectionGoals may be documented in an alternate section (unrecognized sect ion and content) No Status Records FoundNo Status Records FoundNo Status Records Found INFORMATION SOURCE (unrecogn ized section and content) DATE CREATED AUTHOR 10/29/2024 [facility] DATE CREATED AUTHOR AUTHOR'S ORGANIZ ATION 12/27/2024 [facility] DATE CREATED AUTHOR AUTHOR'S ORGANIZ ATION 01/08/2025 [facility] FOR RECORDS PERTAINING TO PATIENTS WHO ARE OR HAVE BEEN ENROLLED IN A CHEMICAL DEPENDENCY/SUBSTANCEABUSE PROGRAM, SOME INFORMATION MAY BE OMITTED. This clinical summary was aggregated from multiple sources. Caution should be exercised in using it in the provision of clinical care. This summary normalizes information from multiple sources, and as a consequence, information in this document may materially change the coding, format and clinical context of patient data. In addition, data may be omitted in some cases. CLINICAL DECISIONS SHOULD BE BASED ON THE PRIMARY CLINICAL RECORDS. [employer] [facility]. provides no warranty or guarantee of the accuracy or completeness of information in this document.
[2025-02-25 03:42] LABS: Anion Gap 11 (7-18); BUN 16 mg/dL (4-19); BUN/Creat Ratio 16.4 RATIO (10-20); Calcium,Total 8.9 mg/dL (7.6-11.0); Carbon Dioxide 22.9 mmol/L (20.0-29.0); Chloride 105 mmol/L (96-106); Estimated Creatinine Clearance 83.98 ml/min (50-250); Glucose 96 mg/dL (70-99); Potassium 4.3 mmol/L (3.5-5.1)
[2025-02-25 03:53] LABS: Pro- Brain NATRIURETIC PEPTIDE < 36 pg/mL (<=900); Troponin T High Sensitivity 6 ng/L (<=22)
--- NOTE | 2025-02-25 05:03 | EDS_ITS ---
HPI History of Present Illness Chief Complaint: Chest Pain Narrative Narrative: Patient was seen and examined after presenting to ED for chest pain and pressure with radiation to left arm states he just had a stress test this past Wednesday he failed it states that they were planning to do an outpatient heart cath this coming Wednesday but he started having chest pain again. [facility] Medical History Cancer Anxiety Alcohol use Thyroid disease Arthritis Varicose veins of both lower extremities High cholesterol Back pain History of diverticulitis Heartburn Non-smoker History of pain when walking History of Holter monitoring History of echocardiogram History of stress test Hypertension History of edema Cardiology follow-up encounter History of irregular heartbeat History of COVID-19 Thyroid disease Bradycardia Home Medications ?Medication ?Instructions ?Recorded ?Last Taken ?Type aspirin 81 mg capsule 81 mg PO DAILY 07/26/2209/30 History atorvastatin 10 mg tablet 5 mg PO DAILY 07/26/22 Unkno wn History levothyroxine 125 mcg tablet 125 mcg PO DAILY 07/26/22 Unknown History omega-3 fatty acids 1,000 mg PO DAILY 07/26/22 0 10/19/24 History ascorbic acid (vitamin C) 500 mg 500 mg PO DAILY 08/31 Unknown History capsule cholecalciferol (vitamin D3) 50 50 mcg PO QDAY 5 Unknown History mcg (2,000 unit) capsule lisinopril 2.5 mg tablet 2.5 mg PO DAILY 10/20/24 Unk nown History Allergy/AdvReac Type Severity Reaction Status Date / Time morphine Allergy Mild Other Verified 02/25/25 02:43 prednisone Allergy PT UNSURE Verified 02/25/25 02:43 OF REACTION Family History Mother Myocardial infarction Diabetes Sister Breast cancer Surgical History Hx of colonoscopy History of hydrocelectomy Social History Smoking Status: Never smoker ROS ROS ED ROS Narrative Pertinent Positives: Chest pain with exertional symptoms and radiation into the left arm Pertinent Negatives: Fevers chills vomiting diarrhea black or bloody stool The remainder of review of systems negative unless otherwise stated in the HPI above. Systems reviewed including constitutional, psychiatric, cardiovascular, respiratory, integument, HENT, gastrointestinal. EXAM Physical Exam Narrative Exam Narrative: Afebrile hemodynamically stable does not appear toxic or in distress normal heart and lung sounds abdomen soft nontender nondistended no palpable pulsatile mass he has intact and equal MSPs in his lower extremities and upper extremities no lower extremity edema or calf tenderness Const Vital Signs: 02/25/25 02:38 02/25/25 02:38 02/25/25 02:43 Temperature 98.1 F Temperature Source Oral Pulse Rate 64 Respiratory Rate 18 Respiratory Effort Normal Blood Pressure 167/101 H Blood Pressure Mean 123 Pulse Ox 100 Oxygen Delivery Method Room Air Room Air 02/25/25 02:51 02/25/25 03:08 02/25/25 04:27 Temperature Temperature Source Pulse Rate 56 L 58 L Respiratory Rate 16 Respiratory Effort Blood Pressure 157/89 H 128/89 H 99/72 Blood Pressure Mean 102 81 Pulse Ox 98 Oxygen Delivery Method Room Air Heart Score History: Highly Suspicious ECG: Normal Age: >/= 65 years Risk Factors: >/= 3 Risk Factors or History of CAD Troponin: </= Normal Limit Score: 6 MDM MDM MDM Narrative Medical decision making narrative: Nursing notes, triage notes, available previous documentation, and vital signs were reviewed. Any discrepancies noted were addressed. Differential Diagnoses: ACS low suspicion for PE or aortic etiology Interventions: Aspirin Nitro Labs Reviewed: No leukocytosis leukopenia or anemia or coagulopathy electrolyte abnormality or renal insufficiency initial troponin is 6 delta troponin is pending Imaging Reviewed: Personally reviewed and interpreted by me: Chest x-ray no pneumonia edema widened mediastinum or pneumothoraces EKG: Normal sinus rhythm rate of 63. I do not see evidence of ACS. No evidence of prolonged QT syndrome. No evidence of AV Block. No short FL intervals, wide QRS, or Delta waves indicative of WPW. No evidence of dagger-like q waves or LVH indicative of Hypertrophic Cardiomyopathy. No evidence of Brugada Syndrome. EKG interpretation is noted and agreed to in the EMR. The interpretation of this patient's EKG contributed directly to the care and management of this patient. Previous Documentation Reviewed: None available or applicable at this time. ED Course: Patient presenting with a very concerning story he does have a cardiac history he already failed an outpatient stress test he is due for an outpatient heart cath this coming Wednesday he needs to be admitted regardless of what the labs show. On reevaluation after labs labs so far unremarkable but given his story given his history I did have a [id number] discussion with the hospitalist who is agreeable to admission This note was made utilizing voice recognition software. All attempts were made to correct spelling or other errors prior to note completion. However, due to the fast-paced nature of emergency medicine, some errors may still be present. Lab Data Labs: Laboratory Results - last 24 hr 02/25/25 02:54 WBC 7.2 RBC 4.77 Hgb 14.5 Hct 41.3 MCV 86.6 MCH 30.4 MCHC 35.1 RDW Std Deviation 37.2 RDW Coeff of [place] 11.7 Plt Count 224 MPV 10.9 Immature Gran % (Auto) 0.400 Neut % (Auto) 53.7 Lymph % (Auto) 31.3 [place] % (Auto) 9.7 Eos % (Auto) 4.2 Baso % (Auto) 0.7 Absolute Neuts (auto) 3.9 Absolute Lymphs (auto) 2.25 Nucleated RBC % 0 PT 13.7 INR 1.0 APTT 28.8 Sodium 139 Potassium 4.3 Chloride 105 Carbon Dioxide 22.9 Anion Gap 11 BUN 16 Creatinine 1.00 Estim Creat Clear Calc 83.98 Est GFR (MDRD) Non-Af 84 BUN/Creatinine Ratio 16.4 Glucose 96 Calcium 8.9 Troponin T High Sens 6 NT pro BNP II < 36 Discharge Plan Triage Chief Complaint: Chest Pain ED Provider: Santiago Márquez Dx/Rx/DC Orders Clinical Impression: Chest pain, Abnormal stress test, History of CAD (coronary artery disease) Prescriptions: No Action cholecalciferol (vitamin D3) 50 mcg (2,000 unit) capsule 50 mcg PO QDAY ascorbic acid (vitamin C) 500 mg capsule 500 mg PO DAILY atorvastatin 10 mg tablet 5 mg PO DAILY levothyroxine 125 mcg tablet 125 mcg PO DAILY [place] 3 Fish Oil Capsule 1,000 mg PO DAILY aspirin 81 mg Capsule 81 mg PO DAILY lisinopril 2.5 mg tablet 2.5 mg PO DAILY Primary Care Provider: Kelsey Braxton Referrals: Kelsey Braxton MD [Primary Care Provider, Family Practice] Print Language: Georgian
--- OUTSIDE RECORDS SUMMARY | 2025-02-25 05:39 | XMS RPT_ITS | CCD ---
Author Organization [facility] Care Team Providers Care Regional Medical Director Name Role Phone Jeferson CALVIN, Dr. Lane Primary Care Provider Dr. Sathya Govea MD Referring Provider [phone] Milagros CALVIN, Dr. Burkett Attending Provider Roof FOAM FABRICATOR-C, Victor M Bills Attending Provider [phone] Roof FOAM FABRICATOR-C, Victor M H Referring Provider [phone] Jeferson, Butros Primary Care Unavailable Kwadwo Linares Attending Unavailable Alberto Govearos Referring Unavailable Latrolandf, Butros Primary Care Unavailable Roof FOAM FABRICATOR, Victor M H Referring Unavailable Roof FOAM FABRICATOR, Victor M H Attending Unavailable Care Physician, No Primary Primary Care Unava ilable Kwadwo Linares Referring Unavailable Kwadwo Linares Attending Unavailable Latouf, Butros Primary Care Unavailable Roof FOAM FABRICATOR, Victor M H Attending Unavailable Lattamia Butros [...] Consulting Unavailable PROVIDER, UNKNOWN Consulting Unavailable May CELL PREPARER Referring Unavailable LUCIORVIKTOR AUNG DO Primary Care Unavailable AUNG NAPOLES DO Attending Unavailable May CELL PREPARER Consulting Unavailable AUNG NAPOLES DO Admitting Unavailable PROVIDER, UNKNOWN Consulting Unavailable PROVIDER, UNKNOWN Consulting Unavailable May CELL PREPARER Referring Unavailable May CELL PREPARER Consulting Unavailable RIKI DIOR MD Primary Care [...] MD Primary Care Unavailab le COREY, MAY CELL PREPARER Attending Unavailable COREY, MAY CELL PREPARER Admitting Unavailable COREY, MAY CELL PREPARER Primary Care Unavailable COREY, MAY CELL PREPARER Consulting Unavailable PROVIDER, UNKNOWN Consulting Unavailable PROVIDER, UNKNOWN Consulting Unavailable COREY, MAY CELL PREPARER Attending Unavailable COREY, MAY CELL PREPARER Admitting Unavailable COREY, MAY CELL PREPARER Primary Care Unavailable COERY, MAY CELL PREPARER Consulting Unavailable PROVIDER, UNKNOWN Consulting Unavailable PROVIDER, UNKNOWN Consulting Unavailable SATHYA GOVEA MD Admitting Unavailable SATHYA GOVEA MD Attending Unavailable SATHYA GOVEA MD Consulting Unavailable SATHYA GOVEA MD Primary Care Unavailable PROVIDER, UNKNOWN Consulting Unavailable PROVIDER, UNKNOWN Consulting Unavailable PROVIDER, UNKNOWN Consulting Unavailable COREY, MAY CELL PREPARER Attending Unavailable COREY, MAY CELL PREPARER Admitting Unavailable COREY, MAY CELL PREPARER Primary Care Unavailable COREY, MAY CELL PREPARER Consulting Unavailable PROVIDER, UNKNOWN Consulting Unavailable PROVIDER, UNKNOWN Consulting Unavailable OSVALDO TAYLOR MD Primary Care Unavailab OSVALDO Dahl MD Attending Unavailab OSVALDO Dahl MD Admitting Unavailab le COREY, MAY CELL PREPARER Consulting Unavailable PROVIDER, UNKNOWN Consulting Unavailable PROVIDER, UNKNOWN Consulting Unavailable COREY, MAY CELL PREPARER Attending Unavailable COREY, MAY CELL PREPARER Admitting Unavailable COREY, MAY CELL PREPARER Primary Care Unavailable COREY, MAY CELL PREPARER Consulting Unavailable PROVIDER, UNKNOWN Consulting Unavailable PROVIDER, UNKNOWN Consulting Unavailable SATHYA GOVEA MD Attending Unavailable SATHYA GOVEA MD Consulting Unavailable SATYHA GOVEA MD Primary Care Unavailable SATHYA GOVEA MD Admitting Unavailable PROVIDER, UNKNOWN Consulting Unavailable PROVIDER, UNKNOWN Consulting Unavailable PROVIDER, UNKNOWN Consulting Unavailable Allergies Allergy Classification Reported Allergen(s) Allergy Type Date of Onset Reaction(s) Facility (3 sources) predniSONE; Translations: [PREDNISONE] Drug Allergy 5 PT UNSURE OF REACTION [facility] (1 source) predniSONE Drug Allergy 5 [facility] Repository Medications Current Medications Medication Drug [...] ug PO DAILY July 26, 2022 12:00am Sekiu-3 Fatty Acids (Sekiu 3 Fish Oil) Capsule (4 sources) Start: 07-26-2022 take 1 capsule by mouth once daily Sekiu-3 Fatty Acids (Sekiu 3 Fish Oil) Capsule Active 1000 mg PO DAILY July 26, 2022 12:00am Start: 07-26-2022 take 1 capsule by mouth once d aily Sekiu-3 Fatty Acids (Sekiu 3 Fish Oil) Capsule Active 1000 MG [...] Office Visit (FAMPWS ) ----- TOD PABON ([id number]) 1960 M Date Time Provider Department 12/22/24 4:20 PM [facility] During your visit today, we recorded the [...] vomiting, or diarrhea or abdominal pain. No OR bleeding or melana : No history of [...] Awake, alert, not in acute distress, obese RESORT DESK CLERK: Answering questions appropriately. No abnormal posturing or [...] 11.7 Absol (more content not included)... Normal [facility] PSA/PROSTATE SPECIFIC ANTIGE N SCREENINGon 12-22-2024 Prostate specific Ag [Mass/Vol] 1.22 ng/mL Normal <2.60 [facility] Comment on above: Order Comment: Speci men Type: BLOOD SPECIMEN Ordering Facility: [facility] Address: [address] [place] [address] Result Comment: Tota l PSA test methodology used is the Electrochemiluminescence Immunoassay by [employer]. Total PSA values by differing methodologies cannot be interchanged. Performed By: #### L IPNF, TSHRF, 25698-6, 2776-1 #### [facility] CLIA [id number] [address] [place] [address] [place] 25(OH)D3 SerPl-ncon 2024 25-hydroxyvitamin D3 [Mass/Vol] 60.8 ng/mL Normal 31.0-80.0 [facility] Comment on above: Order Comment: Speci men Type: BLOOD SPECIMEN Ordering Facility: [facility] Address: [address] [place] [address] Performed By: #### L IPNF, TSHRF, 10183-6, 2776-03 #### [facility] CLIA [id number] [address] [place] [address] [place] CBC panel Auto (Bld)on 12-13 Erythrocyte distribution width (RBC) [Ratio] 12.9 % Normal 11.5-15.0 [facility] Comment on above: Order Comment: Speci men Type: BLOOD SPECIMEN Ordering Facility: [facility] Address: [address] [place] [address] Performed By: #### L IPNF, TSHRF, 00970-4, 2776-03 #### [facility] CLIA [id number] [address] [place] [address] [place] Hematocrit (Bld) [Volume fraction] 47.4 % Normal 39.0-51.0 [facility] Comment on above: Order Comment: Speci men Type: BLOOD SPECIMEN Ordering Facility: [facility] Address: [address] [place] [address] Performed By: #### L IPNF, TSHRF, 18754-9, 277- #### [facility] CLIA [id number] [address] [place] [address] [place] Hemoglobin (Bld) [Mass/Vol] 15.8 g/dL Normal 13.0-17.0 [facility] Comment on above: Order Comment: Speci men Type: BLOOD SPECIMEN Ordering Facility: [facility] Address: [address] [place] [address] Performed By: #### L IPNF, TSHRF, 23063-8, 2776-03 #### [facility] CLIA [id number] [address] [place] [address] [place] MCH (RBC) [Entitic mass] 30.4 pg Normal 26.0-34.0 [facility] Comment on above: Order Comment: Speci men Type: BLOOD SPECIMEN Ordering Facility: [facility] Address: [address] [place] [address] Performed By: #### L IPNF, TSHRF, , 2776-03 #### [facility] CLIA [id number] [address] [place] [address] [place] MCHC (RBC) [Mass/Vol] 33.3 g/dL Normal 30.5-36.0 [facility] Comment on above: Order Comment: Speci men Type: BLOOD SPECIMEN Ordering Facility: [facility] Address: [address] [place] [address] Performed By: #### L IPNF, TSHRF, 54635-3, 2776-03 #### [facility] CLIA [id number] [address] [place] [address] [place] MCV (RBC) [Entitic vol] 91.2 fL Normal 80.0-100.0 [facility] Comment on above: Order Comment: Speci men Type: BLOOD SPECIMEN Ordering Facility: [facility] Address: [address] [place] [address] Performed By: #### L IPNF, TSHRF, 08226-9, 277- #### [facility] CLIA [id number] [address] [place] [address] [place] Nucleated RBC (Bld) [#/Vol] 10*3/uL Normal <0.01 [facility] Comment on above: Order Comment: Speci men Type: BLOOD SPECIMEN Ordering Facility: [facility] Address: [address] [place] [address] Performed By: #### L IPNF, TSHRF, , 2776-03 #### [facility] CLIA [id number] [address] [place] [address] [place] Platelet mean volume (Bld) [Entitic vol] 11.7 fL Normal 9.0-12.7 [facility] Comment on above: Order Comment: Speci men Type: BLOOD SPECIMEN Ordering Facility: [facility] Address: [address] [place] [address] Performed By: #### L IPNF, TSHRF, , 2776-03 #### [facility] CLIA [id number] [address] [place] [address] [place] Platelets (Bld) [#/Vol] 236 10*3/uL Normal 150-400 [facility] Comment on above: Order Comment: Speci men Type: BLOOD SPECIMEN Ordering Facility: [facility] Address: [address] [place] [address] Performed By: #### L IPNF, TSHRF, , 2776-03 #### [facility] CLIA [id number] [address] [place] [address] [place] RBC (Bld) [#/Vol] 5.20 10*6/uL Normal 4.20-6.00 [facility] Comment on above: Order Comment: Speci men Type: BLOOD SPECIMEN Ordering Facility: [facility] Address: [address] [place] [address] Performed By: #### L IPNF, TSHRF, , 2776-03 #### [facility] CLIA [id number] [address] [place] [address] [place] WBC (Bld) [#/Vol] 6.53 10*3/uL Normal 3.70-11.00 [facility] Comment on above: Order Comment: Speci men Type: BLOOD SPECIMEN Ordering Facility: [facility] Address: [address] [place] [address] Performed By: #### L ELAYNE, [facility], 32081-8, 2777-1 #### [facility] CLIA [id number] [address] [place] [address] [place] CNOVon 12-13-2024 CNOV Office Visit (FAMWS ) ----- TOD PABON ([id number]) 1960 M Date Time Provider Department 12/13/24 9:00 AM [facility] During your visit today, we recorded the [...] vomiting, or diarrhea or abdominal pain. No OR bleeding or melana : No history of [...] General: Awake, alert, not in acute distress RESORT DESK CLERK: Answering questions appropriately. No abnormal posturing or [...] DEPRESSION SCREE (more content not included)... Normal [facility] Comprehensive metabolic 2000 panelon 12-13-2024 Albumin [Mass/Vol] 4.8 g/dL Normal 3.9-4.9 [facility] Comment on above: Order Comment: Speci men Type: BLOOD SPECIMEN Ordering Facility: [facility] Address: [address] [place] [address] Performed By: #### L IPNF, TSHRF, , 2776-03 #### [facility] CLIA [id number] [address] [place] [address] [place] ALP [Catalytic activity/Vol] 63 U/L Normal 38-113 [facility] Comment on above: Order Comment: Speci men Type: BLOOD SPECIMEN Ordering Facility: [facility] Address: [address] [place] [address] Performed By: #### L IPNF, TSHRF, , 2776-03 #### [facility] CLIA [id number] [address] [place] [address] [place] ALT [Catalytic activity/Vol] 22 U/L Normal 10-54 [facility] Comment on above: Order Comment: Speci men Type: BLOOD SPECIMEN Ordering Facility: [facility] Address: [address] [place] [address] Performed By: #### L IPNF, TSHRF, 43832-1, 2777-1 #### [facility] CLIA [id number] [address] [place] [address] [place] Anion gap [Moles/Vol] 11 mmol/L Normal 8-15 [facility] Comment on above: Order Comment: Speci men Type: BLOOD SPECIMEN Ordering Facility: [facility] Address: [address] [place] [address] Performed By: #### L IPNF, TSHRF, 44801-1, 277- #### [facility] CLIA [id number] [address] [place] [address] [place] AST [Catalytic activity/Vol] 21 U/L Normal 14-40 [facility] Comment on above: Order Comment: Speci men Type: BLOOD SPECIMEN Ordering Facility: [facility] Address: [address] [place] [address] Performed By: #### L IPNF, TSHRF, 49804-4, 2777- #### [facility] CLIA [id number] [address] [place] [address] [place] Bilirubin [Mass/Vol] 1.3 mg/dL Normal 0.2-1.3 [facility] Comment on above: Order Comment: Speci men Type: BLOOD SPECIMEN Ordering Facility: [facility] Address: [address] [place] [address] Performed By: #### L IPNF, TSHRF, 90691-2, 2777-1 #### [facility] CLIA [id number] [address] [place] [address] [place] Calcium [Mass/Vol] 9.4 mg/dL Normal 8.5-10.2 [facility] Comment on above: Order Comment: Speci men Type: BLOOD SPECIMEN Ordering Facility: [facility] Address: [address] [place] [address] Performed By: #### L IPNF, TSHRF, , 2776-03 #### [facility] CLIA [id number] [address] [place] [address] [place] Chloride [Moles/Vol] 104 mmol/L Normal 98-107 [facility] Comment on above: Order Comment: Speci men Type: BLOOD SPECIMEN Ordering Facility: [facility] Address: [address] [place] [address] Performed By: #### L IPNF, TSHRF, , 2776-03 #### [facility] CLIA [id number] [address] [place] [address] [place] CO2 [Moles/Vol] 25 mmol/L Normal 22-30 [facility] Comment on above: Order Comment: Speci men Type: BLOOD SPECIMEN Ordering Facility: [facility] Address: [address] [place] [address] Performed By: #### L IPNF, TSHRF, , 2776-03 #### [facility] CLIA [id number] [address] [place] [address] [place] Creatinine [Mass/Vol] 0.84 mg/dL Normal 0.73-1.22 [facility] Comment on above: Order Comment: Speci men Type: BLOOD SPECIMEN Ordering Facility: [facility] Address: [address] [place] [address] Performed By: #### L IPNF, TSHRF, , 2776-03 #### [facility] CLIA [id number] [address] [place] [address] [place] eGFRcr SerPlBld CKD-EPI 2021 97 mL/min/1.73m??? Normal >=60 [facility] Comment on above: Order Comment: Speci men Type: BLOOD SPECIMEN Ordering Facility: [facility] Address: [address] [place] [address] Result Comment: Nani mated Glomerular Filtration Rate [...] GFR. Performed By: #### L ELAYNE, TSH, 52535-6, 2776- #### [facility] CLIA [id number] [address] [place] [address] [place] Glucose [Mass/Vol] 94 mg/dL Normal 74-99 [facility] Comment on above: Order Comment: Fox barr Type: BLOOD SPECIMEN Ordering Facility: [facility] Address: [address] [place] [address] Result Comment: The [place] Diabetes Association (ADA) provides guidance for cutoff [...] Standards of Medical Care in Diabetes 2016, [place] Diabetes Association. Diabetes Care. 2016.39(Suppl 1). Performed By: #### L ELAYNE, TSH, 18987-1, 2776-03 #### [facility] CLIA [id number] [address] [place] [address] [place] Potassium [Moles/Vol] 4.8 mmol/L Normal 3.7-5.1 [facility] Comment on above: Order Comment: Fox barr Type: BLOOD SPECIMEN Ordering Facility: [facility] Address: [address] [place] [address] Performed By: #### L IPNF, TSHRF, 74688-6, 2776-03 #### [facility] CLIA [id number] [address] [place] [address] [place] Protein [Mass/Vol] 8.0 g/dL Normal 6.3-8.0 [facility] Comment on above: Order Comment: Speci men Type: BLOOD SPECIMEN Ordering Facility: [facility] Address: [address] [place] [address] Performed By: #### L IPNF, TSHRF, 38819-2, 2776-03 #### [facility] CLIA [id number] [address] [place] [address] [place] Sodium [Moles/Vol] 140 mmol/L Normal 136-144 [facility] Comment on above: Order Comment: Speci men Type: BLOOD SPECIMEN Ordering Facility: [facility] Address: [address] [place] [address] Performed By: #### L IPNF, TSHRF, , 2776-03 #### [facility] CLIA [id number] [address] [place] [address] [place] Urea nitrogen [Mass/Vol] 12 mg/dL Normal 9-24 [facility] Comment on above: Order Comment: Speci men Type: BLOOD SPECIMEN Ordering Facility: [facility] Address: [address] [place] [address] Performed By: #### L IPNF, TSHRF, , 2776-03 #### [facility] CLIA [id number] [address] [place] [address] [place] HBV core Ab Ser Qlon 15-2 025 HBV core Ab Ql (S) Negative Normal Negative [facility] Comment on above: Order Comment: Speci men Type: BLOOD SPECIMEN Ordering Facility: [facility] Address: [address] [place] [address] Result Comment: No e vidence of current or past infection with Hepatitis B virus. Should recent infection be suspected, repeat testing may be considered 3-4 weeks after this draw. Performed By: #### 5 195-3, 53971-9, 30724-1, 44516-1 #### [facility] CLIA [id number] [address] [place] [address] [place] HBV surface Ab Ql (S)on 11-29 HBV surface Ab Qn (S) <8.[address] [facility] Comment on above: Order Comment: Speci men Type: BLOOD SPECIMEN Ordering Facility: [facility] Address: [address] [place] [address] Result Comment: <8 m IU/mL: No serological evidence of immunity to Hepatitis B Virus. >/= 8 to <12 mIU/mL: No serological evidence of immunity to Hepatitis B Virus. >/= 12 mIU/mL: Consistent with serological evidence of immunity to Hepatitis B Virus. Performed By: #### 5 195-3, 52178-2, 77229-0, 52247-5 #### [facility] CLIA [id number] [address] [place] [address] HBV surface Ab Ser Qlon 11-29 HBV surface Ab Ql (S) Negative Normal [facility] Comment on above: Order Comment: Speci men Type: BLOOD SPECIMEN Ordering Facility: [facility] Address: [address] [place] [address] Result Comment: No s erological evidence of immunity to Hepatitis B Virus. Performed By: #### 5 195-3, 90330-4, 38278-7, 67895-6 #### [facility] CLIA [id number] [address] [place] [address] [place] HBV surface Ag Ser Qlon 11-29 HBV surface Ag Ql (S) Negative Normal Negative [facility] Comment on above: Order Comment: Speci men Type: BLOOD SPECIMEN Ordering Facility: [facility] Address: [address] [place] [address] Performed By: #### 5 195-3, 12232-9, 86492-2, 26352-6 #### [facility] CLIA [id number] [address] [place] [address] [place] HCV Ab Ser Qlon 12-13-2024 HCV Ab Ql (S) Negative Normal Negative [facility] Comment on above: Order Comment: Speci men Type: BLOOD SPECIMEN Ordering Facility: [facility] Address: [address] [place] [address] Result Comment: The result suggests no evidence of infection with Hepatitis C virus. Should recent infection be suspected, repeat testing may be considered 4-6 weeks after this draw. Performed By: #### 1 6128-1 #### [facility] CLIA [id number] [address] [place] [address] [place] HIV 1+2 Ab IA Qlon HIV 1 and 2 Ab IA.rapid Nom (S/P/Bld) Normal [facility] Comment on above: Order Comment: Speci men Type: BLOOD SPECIMEN Ordering Facility: [facility] Address: [address] [place] [address] Result Comment: Test not indicated. Performed By: #### 5 195-3, 48150-4, 92093-6, 06403-8 #### [facility] CLIA [id number] [address] [place] [address] [place] HIV 1+2 Ab+HIV1 p24 Ag IA Ql Non-Reactive Normal Nonreactive [facility] Comment on above: Order Comment: Speci men Type: BLOOD SPECIMEN Ordering Facility: [facility] Address: [address] [place] [address] Performed By: #### 5 195-3, 59653-2, 64908-2, 08685-6 #### [facility] CLIA [id number] [address] [place] [address] [place] HIV immunoassay testing algorithm interpretation (S/P/Bld) [Interp] Normal [facility] Comment on above: Order Comment: Speci men Type: BLOOD SPECIMEN Ordering Facility: [facility] Address: [address] [place] [address] Result Comment: No e vidence of HIV-1 or HIV-2 infection. Should recent infection be suspected, repeat testing may be considered 2-3 weeks after this draw. [place] Rev. Code 3701.243(E): This information has been [...] or diagnoses. Performed By: #### 5 195-3, 92142-0, 50410-1, 80691-7 #### [facility] CLIA [id number] [address] [place] [address] OF [facility] HbA1c (Bld)on 12-13-2024 Average glucose Estimated from glycated hemoglobin (Bld) [Mass/Vol] 108 mg/dL Normal [facility] Comment on above: Order Comment: Speci men Type: BLOOD SPECIMEN Ordering Facility: [facility] Address: [address] [place] [address] Result Comment: eAG: (Estimated average glucose) is a calculated value from HgbA1c and is livestock sales representative of the average blood glucose level in the last 2-3 month period. Performed By: #### L ELAYNE [facility], 79770-2, 2777- #### [facility] CLIA [id number] [address] [place] [address] HbA1c (Bld) [Mass fraction] 5.4 % Normal 4.3-5.6 [facility] Comment on above: Order Comment: Speci men Type: BLOOD SPECIMEN Ordering Facility: [facility] Address: [address] [place] [address] Result Comment: Amer [place] Diabetes Association guidelines indicate that patients with HgbA1c in the range 5.7-6.4% are at increased risk for development of diabetes, and intervention by lifestyle modification may be beneficial. HgbA1c greater or equal to 6.5% is considered diagnostic of diabetes. Performed By: #### L ELAYNE, TSHRF, 64728-7, 2777-1 #### [facility] CLIA [id number] [address] [place] [address] [facility] [place] LIPID PANEL, NONFASTINGon Cholesterol [Mass/Vol] 156 mg/dL Normal <200 [facility] Comment on above: Order Comment: Fox barr Type: BLOOD SPECIMEN Ordering Facility: [facility] Address: [address] [place] [address] Result Comment: <200 mg/dL, Desirable 200-239 mg/dL, Borderline high >239 mg/dL, High Performed By: #### L IPNF, TSHRF, 86264-4, 2776-03 #### [facility] CLIA [id number] [address] [place] [address] [place] HDL CHOLESTEROL, NF 38 mg/dL Low >39 [facility] Comment on above: Order Comment: Fox barr Type: BLOOD SPECIMEN Ordering Facility: [facility] Address: [address] [place] [address] Result Comment: 40-5 9 mg/dL, Acceptable >59 mg/dL, High: Negative risk factor for coronary heart disease <40 mg/dL, Low: Positive risk factor for coronary heart disease Performed By: #### L IPNF, TSHRF, , 2776-03 #### [facility] CLIA [id number] [address] [place] [address] [place] LDL CHOLESTEROL CALCULATED, NF 96 mg/dL Normal <100 [facility] Comment on above: Order Comment: Stefani cortney Type: BLOOD SPECIMEN Ordering Facility: [facility] Address: [address] [place] [address] Result Comment: <100 mg/dL, Optimal 100-129 mg/dL, Near optimal/above optimal 130-159 mg/dL, Borderline high 160-189 mg/dL, High >189 mg/dL, Very high Secondary prevention optimal LDL Cholesterol levels are recommended to be <70 mg/dL LDL cholesterol is calculated using the Encarnacion-NIH equation. Performed By: #### L IPNF, TSHRF, 81468-3, 2776-03 #### [facility] CLIA [id number] [address] [place] [address] [place] LDL/HDL RATIO, NF 2.53 mg/dL Normal <2.54 [facility] Comment on above: Order Comment: Fox barr Type: BLOOD SPECIMEN Ordering Facility: [facility] Address: [address] [place] [address] Result Comment: [place]: 1. National Cholesterol Education Program ATP III Guideline At-A-Glance Quick Desk Reference: National Heart, Lung, and Blood [place]. National Institutes of Health. 2001: NIH Publication No. 01-3305. 2. An International Atherosclerosis Society position paper: global recommendations for the management of dyslipidemia: executive summary, Atherosclerosis. 2014: 232(2):410-413. Performed By: #### L IPNF, TSHRF, , 2776-03 #### [facility] CLIA [id number] [address] [place] [address] [place] NON HDL CHOL, NF 118 mg/dL Normal <130 [facility] Comment on above: Order Comment: Fox barr Type: BLOOD SPECIMEN Ordering Facility: [facility] Address: [address] [place] [address] Result Comment: <130 mg/dL, Optimal 130-159 mg/dL, Near optimal/above optimal 160-189 mg/dL, Borderline high 190-219 mg/dL, High >219 mg/dL, Very high Secondary prevention optimal non HDL Cholesterol levels are recommended to be <100 mg/dL Performed By: #### L IPNF, TSHRF, , 2776-03 #### [facility] CLIA [id number] [address] [place] [address] [place] T CHOL/HDL RATIO NF 4.11 mg/dL Normal <5.10 [facility] Comment on above: Order Comment: Fox barr Type: BLOOD SPECIMEN Ordering Facility: [facility] Address: [address] [place] [address] Performed By: #### L IPNF, TSHRF, , 2776-03 #### [facility] CLIA [id number] [address] [place] [address] [place] TRIGLYCERIDES, NF 121 mg/dL Normal <150 [facility] Comment on above: Order Comment: Speci men Type: BLOOD SPECIMEN Ordering Facility: [facility] Address: [address] [place] [address] Result Comment: <150 mg/dL, Normal 150-199 mg/dL, Borderline high 200-499 mg/dL, High >499 mg/dL, Very high Performed By: #### L IPNF, TSHRF, 26794-6, 2776-1 #### [facility] CLIA [id number] [address] [place] [address] [place] VLDL CHOLESTEROL, NF 20 mg/dL Normal <30 [facility] Comment on above: Order Comment: Speci men Type: BLOOD SPECIMEN Ordering Facility: [facility] Address: [address] [place] [address] Performed By: #### L IPNF, TSHRF, , 2776-03 #### [facility] CLIA [id number] [address] [place] [address] [place] Phosphate SerPl-mCncon 12-13 Phosphate [Mass/Vol] 3.7 mg/dL Normal 2.7-4.8 [facility] Comment on above: Order Comment: Speci men Type: BLOOD SPECIMEN Ordering Facility: [facility] Address: [address] [place] [address] Performed By: #### L IPNF, TSHRF, 48605-6, 2776-1 #### [facility] CLIA [id number] [address] [place] [address] [place] TSH W/REFLEX FT4on 5 TSH Qn 3.370 m[IU]/L Normal 0.270-4.200 [facility] Comment on above: Order Comment: Speci men Type: BLOOD SPECIMEN Ordering Facility: [facility] Address: [address] [place] [address] Performed By: #### L IPNF, TSHRF, 42706-4, 2776-1 #### [facility] CLIA [id number] OF [facility] MR/PAT.JOHNSONjorge luis 10-20-2024 MR/PAT.JOHNSON [facility] Medical Records Department [address] [place] [address] PAT - Anesthesia 10/20/24 1636 MR#: [id number] Acct: [id number] Name: TOD PABON Jr. Rep #: [id number] : 1960 64 From: Sridhar Alvarenga MD PCP: Dr. 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 Hx Hospitalization No 10/20/24 14:58 Any Problems [...] take am of surgery PONV PONV - bridge welder: PONV - bridge welder Female No 10/20/24 14:58 HX of Motion [...] 09/03/24 13:53 Respiratory Assessment Respiratory Assessment - bridge welder: Respiratory Tract Infection Hx - bridge welder Hx Respiratory Tract Infection No 10/20/24 14:58 STOP Sleep Apnea STOP Sleep Apnea - bridge welder: STOP Sleep Apnea - bridge welder Hx Hypertension Yes: CONTROLLED WITH MED 10/20/24 [...] Tobacco Use History Tobacco Use History - bridge welder: Tobacco Use History - bridge 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 Normal [facility] US RUQ (GB/PANCREAS)on 09-26 US RUQ (GB/PANCREAS) [place] [address] Patient: TOD PABON Phone#: : 1960 Age: 64 Gender: M Pt. Type: Out Account: [id number] Location: 052 Ordering: SHERYL Benito NICOLE Exam Date: 09/26/2024/7:43 Family Phys: Charge Code: 788009 Physician: Trousdale Order #: [id number] Dose#: PROCEDURE: RUQ (GB) ULTRASOUND COMPARISON: [facility], CT, CHEST W/O CON, 09/14/2024, 13:06. [...] BEEBE MD ON 09/26/2024 AT 8:45 Normal [facility] ED MED ADMINISTRATION DETAIL on 09-22-2024 ED MED ADMINISTRATION DETAIL Project Crew Worker Medication Administration Record [address] [address] [id number] 08/30/2024 Patient: TOD PABON Sex: Male : [...] Izaguirre R.N. Scanned 1 of 1 Normal [facility] ED NURSES CLINICAL NOTEon ED NURSES CLINICAL NOTE Nurse Narrative Nurse Clinical Narrative [address] [address] [id number] 08/30/2024 15:29:00 Patient: TOD PABON Sex: Male [...] of 4 Nurse Narrative 15:08/30/24. Preferred Pharmacy: ([facility] in [place]). -- 15:38 08/30/24 LIVAN Padilla R.N. Allergies: [...] a living will and medical power of estate planning attorney. -- 15:38 08/30/24 TONYT Brigid Padilla R.N. [...] Patient returned from CT by stretcher with fresh foods technician. -- 16:06 08/30/24 LIVAN Izaguirre R.N. 15:56 [...] will be no need for surgical interventions. [place] given to use a pillow at this time. Pt denies any further needs at this time.). -- 19:02 08/30/24 EDT Imani Lara R.N. 20:16 08/30/24. ED physician at the patient's bedside. -- 20:16 08/30/24 EDT Florinda Adrian R.N. DISPOSITION / DISCHARGE 18:47 08/30/24. [...] a gastroentero (more content not included)... Normal [facility] ED ORDER SHEET (CPOE ONLY)on 09-22-2024 ED ORDER SHEET (CPOE ONLY) Order Sheet Order Sheet [address] [place] [address] [id number] 08/30/2024 Patient: TOD PABON Sex: Male : [...] (09/22/2024 19:36 EDT)] 2 of 2 Normal [facility] ED PHYSICIAN CLINICAL REPORT on 09-22-2024 ED PHYSICIAN CLINICAL REPORT Narrative Physician Clinical Narrative [address] [address] [id number] 08/30/2024 15:29:00 Patient: TOD PABON Sex: Male [...] 188 x10/UL (more content not included)... Normal [facility] ED SUPER BILLon 09-22-2024 ED SUPER BILL [address] [address] [id number] 08/30/2024 Patient: TOD PABON Sex: Male : 1960 Age: 64y Item Professional Category Description Facility Code Code Quantity Fee Total Nurse/E/M EMERGENCY 583963 1 $0.00 $0.00 DEPARTMENT VISIT HIGH/URGENT SEVERITY (70801-21) Grand Total $0.00 Providers Oriana Gallegos D.O. Chief Complaint FOREIGN BODY SENSATION IN THROAT. Principal Diagnoses foreign body sensation in throat. 1 of 1 Normal [facility] ED VISIT SUMMARYon ED VISIT SUMMARY Visit Overview Visit Overview [address] [address] [id number] 08/30/2024 Patient: TOD PABON Sex: Male : [...] FOREIGN BODY: BONE 3 of 3 Normal [facility] ED VITALS FLOW SHEET 09-22 ED VITALS FLOW SHEET Vitals Vital Sign Flow Sheet [address] [place] [address] [id number] 08/30/2024 Patient: TOD PABON Sex: Male : 1960 Age: 64y Measurements Wt: 97.5 kg, Ht/Kenan: 67.0 in, BMI: 33.67 Measured Time BP MAP HR RR O2Sat ETCO2 Temp Pain GCS RTS 15:34 08/30/2024 145/94 111 82 17 97% 99.2 F 8 1 of 1 Normal [facility] CT CHEST W/O CONTRASTon 08-29 CT CHEST W/O CONTRAST [address] [address] Patient: TOD PABON. Phone#: : 1960 Age: 64 Gender: M Pt. Type: Out Account: [id number] Location: [facility] Ordering: MAY Benito NICOLE Exam Date: 09/14/2024/13:06 Family Phys: Charge Code: [id number] Physician: Trousdale Order #: [id number] Dose#: [id number] PROCEDURE: CT CHEST WITHOUT CONTRAST COMPARISON: [facility], , CHEST 2 VIEWS, 09/07/2024, 8:04. [...] 64 Gender: M Pt. Type: Out Account: [id number] Location: [facility] Ordering: MayMarcio LUPTON Exam Date: 09/14/2024/13:06 Family Phys: Charge Code: [id number] Physician: Trousdale Order #: [id number] Dose#: [id number] 1. No acute pulmonary parenchymal abnormality. No pulmonary nodule to correspond to the radiograph finding. The radiograph finding is most consistent with overlapping osseous structures. 2. Low-attenuation lesions in the liver, incompletely characterized without contrast. Dictated by: Mauro Beebe MD on 09/14/2024 at 17:39 Approved by: Mauro Beebe MD on 09/15/2024 at 14:07 Normal [facility] CBC + DIFFon 09-07-2024 Baso # 0.04 x10EE3/UL Normal 0.00 - 0.10 [facility] Comment on above: Performed By: #### 2 06177 ####[facility],[address] [place] [address] Basophils/100 WBC (Bld) 0.6 % Normal 0.0 - 2.0 [facility] Comment on above: Performed By: #### 2 34572 ####[facility],[address] [place] [address] CBC + DIFF Normal [facility] Comment on above: Result Comment: CBC- COMPLETE BLOOD COUNT Performed By: #### 2 96092 ####[facility],[address] [place], [place] [id number] EO # 0.12 x10EE3/UL Normal 0.00 - 0.50 [facility] Comment on above: Performed By: #### 2 09632 ####[facility],[address] [place] [address] Eosinophils/100 WBC (Bld) 2.1 % Normal 0.0 - 7.0 [facility] Comment on above: Performed By: #### 2 96938 ####[facility],[address] [place], [place] [address] Erythrocyte distribution width (RBC) [Ratio] 13.0 % Normal 12.0 - 15.6 [facility] Comment on above: Performed By: #### 2 30613 ####[facility],[address] [place] [address] Hematocrit (Bld) [Volume fraction] 45.7 % Normal 40.0 - 52.0 [facility] Comment on above: Performed By: #### 2 61178 ####[facility],[address] [place] [address] Hemoglobin (Bld) [Mass/Vol] 16.1 g/dL Normal 13.0 - 17.5 [facility] Comment on above: Performed By: #### 2 63828 ####[facility],[address] [place] [address]753 Lymph # 1.43 x10EE3/UL Normal 0.80 - 2.80 [facility] Comment on above: Performed By: #### 2 31031 ####[facility],[address] [place] [address] Lymphocytes/100 WBC (Bld) 24.3 % Normal 20.0 - 45.0 [facility] Comment on above: Performed By: #### 2 83027 ####[facility],[address] [place] [address] MANUAL DIFF N/A Normal [facility] Comment on above: Performed By: #### 2 83331 ####[facility],[address] [place] [address] 60065 MCH (RBC) [Entitic mass] 31 pg Normal 27 - 33 [facility] Comment on above: Performed By: #### 2 57415 ####[facility],[address] [place] [address] MCHC 35 X10 3 Normal 32 - 36 [facility] Comment on above: Performed By: #### 2 49828 ####[facility],[address] [place] [address] 35722 MCV (RBC) [Entitic vol] 88 fL Normal 81 - 98 [facility] Comment on above: Performed By: #### 2 87299 ####[facility],[address] [place] [address] [place] # 0.50 x10EE3/UL Normal 0.20 - 1.00 [facility] Comment on above: Performed By: #### 2 67992 ####[facility],[address] [place] [address]607 MONOS % 8.5 % Normal 0.0 - 10.0 [facility] Comment on above: Performed By: #### 2 47080 ####[facility],[address] [place] [address] Morphology Shahbaz (Bld) [Interp] N/A Normal [facility] Comment on above: Performed By: #### 2 75101 ####[facility],[address] [place] [address] Neut # 3.80 x10EE3/UL Normal 1.50 - 7.10 [facility] Comment on above: Performed By: #### 2 16017 ####[facility],[address] [place] [address] Neutrophils/100 WBC (Bld) 64.5 % Normal 46.0 - 76.0 [facility] Comment on above: Performed By: #### 2 40679 ####[facility],[address] [place] [address] PLATELET 227 x10EE3/UL Normal 150 - 450 [facility] Comment on above: Performed By: #### 2 64811 ####[facility],[address] [place] [address] Platelet mean volume (Bld) [Entitic vol] 8.7 fL Normal 6.4 - 10.5 [facility] Comment on above: Result Comment: AUTO MATED DIFFERENTIAL Performed By: #### 2 08722 ####[facility],[address] [place] [address] 04961 RBC 5.20 x 10EE6/UL Normal 4.50 - 6.00 [facility] Comment on above: Performed By: #### 2 32907 ####[facility],[address] [place] [address]120 WBC 5.9 x 10EE3/UL Normal 4.5 - 10.8 [facility] Comment on above: Performed By: #### 2 06365 ####[facility],[address] [place] [address]05 CHEST 2 VIEWSon 09-07-2024 CHEST 2 VIEWS [place] [address] Patient: TOD PABON Phone#: : 1960 Age: 64 Gender: M Pt. Type: ER Account: [id number] Location: [facility] Ordering: AUNG NAPOLES Exam Date: 09/07/2024/8:04 Family Phys: SHERYL NICOLE Charge Code: [id number] Physician: Trousdale Order #: [id number] Dose#: PROCEDURE: X-RAY CHEST 2 VIEWS COMPARISON: [...] Beebe MD on 09/07/2024 at 8:15 Normal [facility] CMP with eGFRon 09-07-2024 AGE 64 years Normal [facility] Comment on above: Performed By: #### 2 96893 #### [facility],[address] [place] [address] Albumin [Mass/Vol] 3.7 g/dL Normal 3.4 - 5.0 [facility] Comment on above: Performed By: #### 2 69508 #### [facility],[address] [place] [address] Albumin/Globulin [Mass ratio] 0.9 {ratio} Normal 0.9 - 1.6 [facility] Comment on above: Performed By: #### 2 68783 #### [facility],[address] [place] [address] 23926 ALK PHOS 63 U/L Normal 46 - 116 [facility] Comment on above: Performed By: #### 2 13765 #### [facility],[address] [place] [address] 37945 ALT [Catalytic activity/Vol] 29 U/L Normal 16 - 63 [facility] Comment on above: Performed By: #### 2 83680 #### [facility],[address] [place] [address] 61440 Anion gap [Moles/Vol] 14 mmol/L Normal 10 - 20 [facility] Comment on above: Performed By: #### 2 31624 #### [facility],[address] [place] [address] 23823 AST [Catalytic activity/Vol] 18 U/L Normal 15 - 37 [facility] Comment on above: Performed By: #### 2 00533 #### [facility],[address] [place] [address] B/C RATIO 14 ratio Normal 0 - 30 [facility] Comment on above: Performed By: #### 2 42823 #### [facility],[address] [place] [address] Bilirubin [Mass/Vol] 1.1 mg/dL High 0.2 - 1.0 [facility] Comment on above: Performed By: #### 2 60305 #### [facility],[address] [place] [address]46 Calcium [Mass/Vol] 8.5 mg/dL Normal 8.5 - 10.1 [facility] Comment on above: Performed By: #### 2 37739 #### [facility],[address] [place] [address]23 Chloride [Moles/Vol] 102 mmol/L Normal 98 - 107 [facility] Comment on above: Performed By: #### 2 87070 #### [facility],[address] [place] [address]25 CMP with eGFR Normal [facility] Comment on above: Result Comment: COMP REHENSIVE METABOLIC PANEL Performed By: #### 2 59102 #### [facility],[address] [place] [address] 67287 CO2 [Moles/Vol] 26.0 mmol/L Normal 21.0 - 32.0 [facility] Comment on above: Performed By: #### 2 91454 #### [facility],[address] [place] [address] 89707 Creatinine [Mass/Vol] 0.85 mg/dL Normal 0.70 - 1.30 [facility] Comment on above: Performed By: #### 2 28377 #### [facility],[address] [place] [address] 11576 GFR/1.73 sq M.predicted among non-blacks MDRD (S/P/Bld) [Vol rate/Area] mL/min/{1.73_m2} Normal 60 - 999 [facility] Comment on above: Performed By: #### 2 75831 #### [facility],[address] [place] [address] 78362 Result Comment: ACCO RDING TO THE NATIONAL KIDNEY DISEASE EDUCATION PROGRAM(NKDE), A NORMAL eGFR IS A VALUE GREATER THAN OR EQUAL TO 60 ML/MIN/1.73 SQ METERS. CHRONIC KIDNEY DISEASE: <60mL/MIN/1.73 SQ METERS KIDNEY FAILURE: <15mL/MIN/1.73 SQ METERS THIS TEST SHOULD ONLY BE USED FOR PATIENTS 18 YEARS OF AGE AND OLDER. Globulin (S) [Mass/Vol] 4.3 g/dL High 1.5 - 3.8 [facility] Comment on above: Performed By: #### 2 59423 #### [facility],[address] [place] [address] 69160 Glucose [Mass/Vol] 96 mg/dL Normal 74 - 106 [facility] Comment on above: Performed By: #### 2 31432 #### [facility],[address] [place] [address] 30411 Potassium [Moles/Vol] 4.0 mmol/L Normal 3.5 - 5.1 [facility] Comment on above: Performed By: #### 2 34469 #### [facility],[address] [place] [address] 88197 Protein [Mass/Vol] 8.0 g/dL Normal 6.4 - 8.2 [facility] Comment on above: Performed By: #### 2 00810 #### [facility],[address] [place] [address] 61045 Sodium [Moles/Vol] 138 mmol/L Normal 136 - 145 [facility] Comment on above: Performed By: #### 2 47040 #### [facility],[address] [place] [address] 87025 Urea nitrogen [Mass/Vol] 12 mg/dL Normal 7 - 18 [facility] Comment on above: Performed By: #### 2 00174 #### [facility],[address] [facility] [address] CORONAVIRUS (SARS) ANTIGEN T Jerry 09-07-2024 EXTERNAL QC DONE? YES Normal [facility] Comment on above: Performed By: #### 2 79974 #### [facility],[address] [place] [address],[facility] [address] INTERNAL CONTROL PASS Normal [facility] Comment on above: Performed By: #### 2 31460 #### [facility],[address] [facility],[place] [address] SARS ANTIGEN Negative Normal NORMAL: NEGATIVE [facility] Comment on above: Performed By: #### 2 12201 #### [facility],[address] [place] [address],[facility] [address] SEND TO ? NO Normal [facility] Comment on above: Result Comment: SARS -CoV-2 THIS TEST IS BEING USED UNDER THE FDA EUA PROCEDURE. THIS ASSAY HAS BEEN VALIDATED AT [facility] FOR USE WITH NASAL AND NASOPHARYNGEAL SWAB [...] PUBLIC HEALTH AUTHORITIES. Performed By: #### 2 25176 #### [facility],[address] [place] [address]994 ED MED ADMINISTRATION DETAIL on 09-07-2024 ED MED ADMINISTRATION DETAIL Project Crew Worker Medication Administration Record [address] [address] [id number] 09/07/2024 Patient: TOD PABON Sex: Male : 1960 Age: 64y MEASUREMENTS: Wt: 95.3 kg, Ht/Kenan: 67.0 in, BMI: 32.89 ALLERGIES: Penicillins, prednisone Medication Ordered Medication Administration Date/Time 1 of Normal [facility] ED NURSES CLINICAL NOTEon ED NURSES CLINICAL NOTE Nurse Narrative Nurse Clinical Narrative [address] [address] [id number] 09/07/2024 07:21:00 Patient: TOD PABON Sex: Male [...] Patient verbalized understanding. Written instructions provided in Pakistani. The patient was discharged by the physician. The patient was discharged home and accompanied by slurry control operator helper. The patient left ambulatory and via private vehicle. Repair Clerk driving. -- 09:50 09/07/24 EDT Imani Lara R.N. Departure time: 09:50 09/07/2024. -- 09:50 09/07/24 EDT Imani Lara R.N. (Electronically signed by Imani Lara R.N. 09/07/24 09:50:57 EDT) Generated (more content not included)... Normal [facility] ED ORDER SHEET (CPOE ONLY)on 09-07-2024 ED ORDER SHEET (CPOE ONLY) Order Sheet Order Sheet [address] [place] [address] [id number] 09/07/2024 Patient: TOD PABON Sex: Male : [...] (09/07/2024 18:45 EDT)] 3 of 3 Normal [facility] ED PHYSICIAN CLINICAL REPORT on 09-07-2024 ED PHYSICIAN CLINICAL REPORT Narrative Physician Clinical Narrative [address] [address] [id number] 09/07/2024 07:21:00 Patient: TOD PABON Sex: Male [...] - 45. (more content not included)... Normal [facility] ED [facility] BILL 09-07-2024 ED [facility] [address] [place] [address] [id number] 09/07/2024 Patient: TOD PABON Sex: Male : 1960 Age: 64y Item Professional Category Description Facility Code Code Quantity Fee Total Nurse/E/M EMERGENCY 505039 1 $0.00 $0.00 DEPARTMENT VISIT MODERATE SEVERITY (14547-44) Grand Total $0.00 Providers Aung Napoles D.O. Chief Complaint PALPITATIONS. Principal Diagnosis Palpitations. Probable acute bacterial bronchitis. Antibiotics prescribed / dispensed: bacterial bronchitis. 1 of 2 Superbill ICD-10 Codes R00.2: Palpitations 2 of 2 Normal [facility] ED VISIT SUMMARYon ED VISIT SUMMARY Visit Overview Visit Overview [facility] [address] [place] [address] [phone] 09/07/2024 Patient: TOD PABON Sex: Male : [...] DISPENSED: BACTERIAL BRONCHITIS 3 of 3 Normal [facility] ED VITALS FLOW SHEETon 09-07 ED VITALS FLOW SHEET Vitals Vital Sign Flow Sheet [address] [place] [address] [phone] 09/07/2024 Patient: TOD PABON Sex: Male : [...] 09/07/2024 82 98% 3 of 3 Normal [facility] INFLUENZA VIRUS RAPID A/Bon 07-10-2025 INFLUENZA VIRUS [...] TO THREE DAYS. RESULT CRITICAL? NO Normal [facility] Comment on above: Performed By: #### 2 64446 #### [facility],[address] [place] [address] 45544 MAGNESIUMon 09-07-2024 Magnesium [Mass/Vol] 2.3 mg/dL Normal 1.8 - 2.4 [facility] Comment on above: Performed By: #### 2 08300 #### [facility],[address] [place] [address] 59513 NT-proBNPon 09-07-2024 Natriuretic peptide B (Bld) [Mass/Vol] 13 pg/mL Normal 0 - 125 [facility] Comment on above: Performed By: #### 2 80309 #### [facility],[address] [place] [address] 65492 RESPIRATORY PANEL PCR (POM)o n 09-07-2024 ADENOVIRUS Negative Normal NORMAL: NEGATIVE [facility] Comment on above: Performed By: #### 2 08303 #### [facility],[address] [place] [address] 25723 B. HOLMESII Negative Normal NORMAL: NEGATIVE [facility] Comment on above: Performed By: #### 2 59062 #### [facility],[address] [place] [address] 53530 B. PARAPERTUSSIS Negative Normal NORMAL: NEGATIVE [facility] Comment on above: Performed By: #### 2 32114 #### [facility],[address] [facility],[place] [address] B. PERTUSSIS Negative Normal NORMAL: NEGATIVE [facility] Comment on above: Performed By: #### 2 81785 #### [facility],[address] [facility],[place] [address] H. METAPNEUMOVIRUS Negative Normal NORMAL: NEGATIVE [facility] Comment on above: Performed By: #### 2 02147 #### [facility],[address] [facility],[place] [address] Influenza A Negative Normal NORMAL: NEGATIVE [facility] Comment on above: Performed By: #### 2 74674 #### [facility],[address] [facility] [address] INFLUENZA A H1 Negative Normal NORMAL: NEGATIVE [facility] Comment on above: Performed By: #### 2 32290 #### [facility],[address],[place] [address] INFLUENZA A H3 Negative Normal NORMAL: NEGATIVE [facility] Comment on above: Performed By: #### 2 58990 #### [facility],[address] [facility] [address] Influenza B Negative Normal NORMAL: NEGATIVE [facility] Comment on above: Performed By: #### 2 37335 #### [facility],[address] [facility],[place] [address] PARAINFLUENZA 1 Negative Normal NORMAL: NEGATIVE [facility] Comment on above: Performed By: #### 2 73226 #### [facility],[address] [facility] [address] PARAINFLUENZA 2 Negative Normal NORMAL: NEGATIVE [facility] Comment on above: Performed By: #### 2 64170 #### [facility],[address] [facility] [address] PARAINFLUENZA 3 Negative Normal NORMAL: NEGATIVE [facility] Comment on above: Performed By: #### 2 79621 #### [facility],[address] [place] [address] 60919 PARAINFLUENZA 4 Negative Normal NORMAL: NEGATIVE [facility] Comment on above: Performed By: #### 2 91389 #### [facility],[address] [place] [address] 10438 RESPIRATORY PANEL PCR (POM) Normal [facility] Comment on above: Result Comment: RESP IRATORY PANEL FLEX PCR Performed By: #### 2 95867 #### [facility],[address] [place] [address] 83768 RHINOVIRUS Negative Normal NORMAL: NEGATIVE [facility] Comment on above: Performed By: #### 2 61528 #### [facility],[address] [place] [address] 64136 RSV A Negative Normal NORMAL: NEGATIVE [facility] Comment on above: Performed By: #### 2 73022 #### [facility],[address] [place], [place] [id number] RSV B Negative Normal NORMAL: NEGATIVE [facility] Comment on above: Performed By: #### 2 34786 #### [facility],[address] [place] [address] SEND TO ? NO Normal [facility] Comment on above: Result Comment: THIS ASSAY HAS BEEN VALIDATED IN THE [facility] FOR USE WITH NASOPHARYNGEAL SPECIMENS IN [facility]. INTERPRETIVE DATA THE [employer] RESPIRATORY PATHOGENS FLEX NUCLEIC ACID TEST (RP FLEX) IS A MULTIPLEXED QUALITATIVE TEST INTENDED FOR THE SIMULTANEOUS DETECTION AND IDENTIFICATION OF MULTIPLE VIRAL AND BACTERIAL NUCLEIC ACIDS IN NASOPHARYNGEAL SWABS (VP PURCHASING) OBTAINED FROM INDIVIDUALS SUSPECTED OF RESPIRATORY TRACT INFECTION. THE TEST IS PERFORMED ON THE AUTOMATED [employer] SYSTEM UTILIZING REVERSE EDGE GRINDER MACHINE (RT), POLYMERASE CHAIN REACTION (PCR), AND MICROARRAY [...] INFECTION THAT IS NOT DETECTED BY AN VP PURCHASING SPECIMEN. CONVERSELY, POSITIVE RESULTS DO NOT RULE-OUT [...] AND CULTURE SPECIMENS. Performed By: #### 2 26455 #### [place] [id number] RSVon 09-07-2024 RSV RSV NEGATIVE INTERNAL NEG QC PASS INTERNAL POS QC PASS EXTERNAL QC DONE? YES THIS TESTS IS INTENDED FOR IN VITRO DIAGNOSTIC USE TO AID IN THE DIAGNOSIS OF RESPIRATORY SYNCTYIAL VIRUS INFECTIONS IN AND PEDIATRIC PATIENTS UNDER THE AGE OF 5. IT IS RECOMMENDED THAT NEGATIVE TEST RESULTS BE CONFIRMED BY CELL CULTURE. Normal [facility] Comment on above: Performed By: #### 2 18769 ####[address] [address] TROPONINon 09-07-2024 HS TROPONIN 4.1 pg/mL Normal 0.0 - 76.2 [facility] Comment on above: Performed By: #### 2 98347 #### [facility],[address] [place] [address] 96396 TSHon 09-07-2024 TSH Qn 1.80 m[IU]/L Normal 0.35 - 3.74 [facility] Comment on above: Performed By: #### 2 98538 #### [facility],[address] [place] [address] 44272 Culture, Throaton 09-06-2024 CUT Normal throat gracie isolated. No beta-hemolytic streptococcus isolated. Normal [facility] Comment on above: Performed By: #### M 100.1000 #### [facility] [address] [place], [place], [id number] Laboratory - Microbiology an d Antimicrobial susceptibilityOrdered By: Victor M Wilson on 09-03-2024 SARS-CoV-2 (COVID-19) RNA CHAD+probe Ql (Unsp spec) Not detected [facility] Rapid group A Streptococcus antigen assay at point of careOrdered By: Victor M Wilson on 09-03-2024 S. pyogenes Ag IA.rapid Ql (Throat) Negative [facility] Throat specimen bacteria luisa ntification by cultureOrdered By: Victor M Wilson on 09-03-2024 Bacteria identified Cx Nom (Throat) streptococcus isolated. [facility]gent Care Visit Reporton 0 09-03-2024 Urgent Care Visit Report [facility] [address] [place], [place] [address] OFFICE VISIT Date of Service: 09/03/24 MR#: [id number] Acct: [id number] Name: TOD PABON Jr. Rep #: [id number] : 1960 Provider: WALDEMAR mclaughlin Age/Sex: 64/M Location: [facility] Status: Signed Intake Vital Signs 08/31/24 09:19 [...] room air Intake Visit Reasons: SORE THROAT Information Operator Required: No Allergies prednisone Allergy (Unverified 09/03/24 [...] @ 14:20 by Victor M Wilson NP, FOAM FABRICATOR-C) Rheumatoid arthritis Thyroid disease Bradycardia Surgical History [...] a sore throat and was seen at [place] emergency department for such and concerns that [...] throat swell (more content not included)... Normal [facility] Surgery Visit Reporton 08-31 Surgery Visit Report [facility] [address] [place] [address] OFFICE VISIT Date of Service: 08/31/24 MR#: [id number] Acct: [id number] Name: TOD PABON Jr. Rep #: [id number] : 1960 Provider: Dr. Kwadwo crowley MD Age/Sex: 64/M Location: [facility] Status: Signed Intake Vital Signs 07/26/22 03:00 [...] General: cooperative Orientation: alert and oriented x3 [facility] Head: normal to inspection Neck Neck: [...] answered coley (more content not included)... Normal [facility] BMP with eGFRon 08-30-2024 AGE 64 years Normal [facility] Comment on above: Performed By: #### 2 79809 #### [facility],[address] [place] [address] 81134 Anion gap [Moles/Vol] 11 mmol/L Normal 10 - 20 [facility] Comment on above: Performed By: #### 2 52369 #### [facility],[address] [place] [address] 89308 BMP with eGFR Normal [facility] Comment on above: Result Comment: BASI C METABOLIC PANEL Performed By: #### 2 94466 #### [facility],[address] [place] [address] 53255 Calcium [Mass/Vol] 9.1 mg/dL Normal 8.5 - 10.1 [facility] Comment on above: Performed By: #### 2 07083 #### [facility],[address] [place] [address] 11399 Chloride [Moles/Vol] 103 mmol/L Normal 98 - 107 [facility] Comment on above: Performed By: #### 2 79931 #### [facility],[address] [place] [address] 10126 CO2 [Moles/Vol] 29.2 mmol/L Normal 21.0 - 32.0 [facility] Comment on above: Performed By: #### 2 77642 #### [facility],[address] [place] [address] 78600 Creatinine [Mass/Vol] 0.90 mg/dL Normal 0.70 - 1.30 [facility] Comment on above: Performed By: #### 2 74978 #### [facility],[address] [place] [address] 77422 GFR/1.73 sq M.predicted among non-blacks MDRD (S/P/Bld) [Vol rate/Area] mL/min/{1.73_m2} Normal 60 - 999 [facility] Comment on above: Performed By: #### 2 90688 #### [facility],[address] [place], [place] [id number] Result Comment: ACCO RDING TO THE NATIONAL KIDNEY DISEASE EDUCATION PROGRAM(NKDE), A NORMAL eGFR IS A VALUE GREATER THAN OR EQUAL TO 60 ML/MIN/1.73 SQ METERS. CHRONIC KIDNEY DISEASE: <60mL/MIN/1.73 SQ METERS KIDNEY FAILURE: <15mL/MIN/1.73 SQ METERS THIS TEST SHOULD ONLY BE USED FOR PATIENTS 18 YEARS OF AGE AND OLDER. Glucose [Mass/Vol] 96 mg/dL Normal 74 - 106 [facility] Comment on above: Performed By: #### 2 87537 #### [facility],[address] [place] [address] 35676 Potassium [Moles/Vol] 4.1 mmol/L Normal 3.5 - 5.1 [facility] Comment on above: Performed By: #### 2 34511 #### [facility],[address] [place] [address] 71653 Sodium [Moles/Vol] 139 mmol/L Normal 136 - 145 [facility] Comment on above: Performed By: #### 2 06378 #### [facility],[address] [place] [address] 09513 Urea nitrogen [Mass/Vol] 13 mg/dL Normal 7 - 18 [facility] Comment on above: Performed By: #### 2 13351 #### [facility],[address] [place] [address] 33558 CBC + DIFFon 08-30-2024 Baso # 0.03 x10EE3/UL Normal 0.00 - 0.10 [facility] Comment on above: Performed By: #### 2 51257 #### [facility],[address] [place] [address] Basophils/100 WBC (Bld) 0.4 % Normal 0.0 - 2.0 [facility] Comment on above: Performed By: #### 2 65626 #### [facility],[address] [place] [address] CBC + DIFF Normal [facility] Comment on above: Result Comment: CBC- COMPLETE BLOOD COUNT Performed By: #### 2 68037 #### [facility],[address] [place] [address] EO # 0.03 x10EE3/UL Normal 0.00 - 0.50 [facility] Comment on above: Performed By: #### 2 96109 #### [place] [address] Eosinophils/100 WBC (Bld) 0.4 % Normal 0.0 - 7.0 [facility] Comment on above: Performed By: #### 2 05742 #### [place] [address] Erythrocyte distribution width (RBC) [Ratio] 12.7 % Normal 12.0 - 15.6 [facility] Comment on above: Performed By: #### 2 77079 #### [place] [address] Hematocrit (Bld) [Volume fraction] 42.3 % Normal 40.0 - 52.0 [facility] Comment on above: Performed By: #### 2 09672 #### [facility],[address] [place] [address] Hemoglobin (Bld) [Mass/Vol] 15.3 g/dL Normal 13.0 - 17.5 [facility] Comment on above: Performed By: #### 2 86376 #### [facility],[address] [place] [address] Lymph # 1.07 x10EE3/UL Normal 0.80 - 2.80 [facility] Comment on above: Performed By: #### 2 23240 #### [facility],[address] [place] [address] Lymphocytes/100 WBC (Bld) 13.1 % Low 20.0 - 45.0 [facility] Comment on above: Performed By: #### 2 21375 #### [facility],[address] [place] [address] MANUAL DIFF N/A Normal [facility] Comment on above: Performed By: #### 2 75936 #### [facility],[address] [place] [address] MCH (RBC) [Entitic mass] 32 pg Normal 27 - 33 [facility] Comment on above: Performed By: #### 2 22988 #### [place] [address] MCHC 36 X10 3 Normal 32 - 36 [facility] Comment on above: Performed By: #### 2 68332 #### [facility],[address] [place] [address] MCV (RBC) [Entitic vol] 88 fL Normal 81 - 98 [facility] Comment on above: Performed By: #### 2 42173 #### [facility],[address] [place] [address] [place] # 0.90 x10EE3/UL Normal 0.20 - 1.00 [facility] Comment on above: Performed By: #### 2 32379 #### [facility],[address] [place] [address] MONOS % 11.1 % High 0.0 - 10.0 [facility] Comment on above: Performed By: #### 2 18438 #### [facility],[address] [place] [address] Morphology Shahbaz (Bld) [Interp] N/A Normal [facility] Comment on above: Performed By: #### 2 79374 #### [facility],[address] [place] [address] 43494 Neut # 6.08 x10EE3/UL Normal 1.50 - 7.10 [facility] Comment on above: Performed By: #### 2 56841 #### [address] [address] Neutrophils/100 WBC (Bld) 75.0 % Normal 46.0 - 76.0 [facility] Comment on above: Performed By: #### 2 13607 #### [address] [address] PLATELET 188 x10EE3/UL Normal 150 - 450 [facility] Comment on above: Performed By: #### 2 14288 #### [place] [address] Platelet mean volume (Bld) [Entitic vol] 8.3 fL Normal 6.4 - 10.5 [facility] Comment on above: Result Comment: AUTO MATED DIFFERENTIAL Performed By: #### 2 04292 #### [address] [address] RBC 4.83 x 10EE6/UL Normal 4.50 - 6.00 [facility] Comment on above: Performed By: #### 2 13822 #### [facility],[address] [place], [place] [address] WBC 8.1 x 10EE3/UL Normal 4.5 - 10.8 [facility] Comment on above: Performed By: #### 2 33425 #### [address] [address] [address] NECK W/CONTRASTon 025 CT NECK W/CONTRAST [place] [address] Patient: TOD PABON Phone#: : 1960 Age: 64 Gender: M Pt. Type: ER Account: [id number] Location: 052 Ordering: DR. RIKI DIOR Exam Date: 08/30/2024/18:48 Family Phys: MayMarcio COREY Charge Code: [id number] Physician: [place] Order #: [id number] Dose#: 7.7 mGy PROCEDURE: CT NECK WITH [...] 64 Gender: M Pt. Type: ER Account: [id number] Location: 052 Ordering: DR. RIKI DIOR Exam Date: 08/30/2024/18:48 Family Phys: MayMarcio COREY Charge Code: [id number] Physician: [place] Order #: [id number] Dose#: 7.7 mGy Approved by: Mauro Beebe MD on 08/31/2024 at 13:06 [facility] NECK SOFT TISSUEon NECK [facility] TISSUE [place] [address] Patient: TOD PABON Phone#: : 1960 Age: 64 Gender: M Pt. Type: ER Account: [id number] Location: 2 Ordering: DR. RIKI DIOR Exam Date: 08/30/2024/15:56 Family Phys: SHERYL Oliver LUPTON Charge Code: [id number] Physician: [place] Order #: [id number] Dose#: PROCEDURE: X-RAY NECK SOFT TISSUE COMPARISON: None. INDICATIONS: Foreign body. FINDINGS: SOFT TISSUES: Negative. No visible soft tissue swelling. OTHER: There is no evidence of radio opaque foreign body. CONCLUSION: 1. Radiopaque foreign body is not identified. Dictated by: Rehana Roldan MD on 08/30/2024 at 16:09 Approved by: Rehana Roldan MD on 08/30/2024 at 16:10 [facility] US AORTAon 08-18-2024 [place] [address] Patient: TOD PABON Phone#: : 1960 Age: 64 Gender: M Pt. Type: Out Account: [id number] Location: Ordering: SATHYA GOVEA Exam Date: 08/18/2024/7:35 Family Phys: Charge Code: [id number] Physician: [place] Order #: [id number] Dose#: PROCEDURE: AORTA ULTRASOUND COMPARISON: None. INDICATIONS: [...] Beebe MD on 08/21/2024 at 17:50 Normal [facility] CBC + DIFFon 08-10-2024 Baso # 0.03 x10EE3/UL Normal 0.00 - 0.10 [facility] Comment on above: Performed By: #### 2 94973 #### [facility],[address] [place] [address] 12392 Basophils/100 WBC (Bld) 0.6 % Normal 0.0 - 2.0 [facility] Comment on above: Performed By: #### 2 07045 #### [facility],[address] [place] [address] CBC + DIFF Normal [facility] Comment on above: Result Comment: CBC- COMPLETE BLOOD COUNT Performed By: #### 2 90225 #### [facility],[address] [place] [address] 05753 EO # 0.33 x10EE3/UL Normal 0.00 - 0.50 [facility] Comment on above: Performed By: #### 2 43689 #### [facility],[address] [place] [address] 14009 Eosinophils/100 WBC (Bld) 6.4 % Normal 0.0 - 7.0 [facility] Comment on above: Performed By: #### 2 09574 #### [facility],[address] [place] [address] 48495 Erythrocyte distribution width (RBC) [Ratio] 13.1 % Normal 12.0 - 15.6 [facility] Comment on above: Performed By: #### 2 90738 #### [facility],[address] [place], [place] [address] Hematocrit (Bld) [Volume fraction] 43.9 % Normal 40.0 - 52.0 [facility] Comment on above: Performed By: #### 2 18598 #### [facility],[address] [place], [place] [address] Hemoglobin (Bld) [Mass/Vol] 15.5 g/dL Normal 13.0 - 17.5 [facility] Comment on above: Performed By: #### 2 75009 #### [facility],[address] [place] [address] Lymph # 1.52 x10EE3/UL Normal 0.80 - 2.80 [facility] Comment on above: Performed By: #### 2 50247 #### [facility],[address] [place] [address] Lymphocytes/100 WBC (Bld) 29.4 % Normal 20.0 - 45.0 [facility] Comment on above: Performed By: #### 2 58152 #### [facility],[address] [place], [place] [phone] MANUAL DIFF N/A Normal [facility] Comment on above: Performed By: #### 2 05683 #### [facility],[address] [place], [place] [id number] MCH (RBC) [Entitic mass] 32 pg Normal 27 - 33 [facility] Comment on above: Performed By: #### 2 87139 #### [facility],[address] [place], [place] [phone] MCHC 35 X10 3 Normal 32 - 36 [facility] Comment on above: Performed By: #### 2 51649 #### [facility],[address] [place], [place] [address] MCV (RBC) [Entitic vol] 90 fL Normal 81 - 98 [facility] Comment on above: Performed By: #### 2 61120 #### [facility],[address] [place] [address] 16695 [place] # 0.48 x10EE3/UL Normal 0.20 - 1.00 [facility] Comment on above: Performed By: #### 2 90289 #### [facility],[address] [place] [address] 05656 MONOS % 9.3 % Normal 0.0 - 10.0 [facility] Comment on above: Performed By: #### 2 57829 #### [facility],[address] [place] [address] 70615 Morphology Shahbaz (Bld) [Interp] N/A Normal [facility] Comment on above: Performed By: #### 2 30533 #### [facility],[address] [place] [address] 84717 Neut # 2.81 x10EE3/UL Normal 1.50 - 7.10 [facility] Comment on above: Performed By: #### 2 57785 #### [facility],[address] [place] [address] 54519 Neutrophils/100 WBC (Bld) 54.3 % Normal 46.0 - 76.0 [facility] Comment on above: Performed By: #### 2 44917 #### [facility],[address] [place] [address] 15585 PLATELET 205 x10EE3/UL Normal 150 - 450 [facility] Comment on above: Performed By: #### 2 39662 #### [facility],[address] [place] [address] 23796 Platelet mean volume (Bld) [Entitic vol] 9.4 fL Normal 6.4 - 10.5 [facility] Comment on above: Result Comment: AUTO MATED DIFFERENTIAL Performed By: #### 2 88616 #### [facility],[address] [place] [address] 26241 RBC 4.90 x 10EE6/UL Normal 4.50 - 6.00 [facility] Comment on above: Performed By: #### 2 20694 #### [facility],[address] [place] [address] 44387 WBC 5.2 x 10EE3/UL Normal 4.5 - 10.8 [facility] Comment on above: Performed By: #### 2 46417 #### [facility],[address] [place] [address] 86088 CMP with eGFRon 08-10-2024 AGE 64 years Normal [facility] Comment on above: Performed By: #### 2 30629 #### [facility],[address] [place] [address] 00667 Albumin [Mass/Vol] 3.8 g/dL Normal 3.4 - 5.0 [facility] Comment on above: Performed By: #### 2 93339 #### [facility],[address] [place] [address] 57021 Albumin/Globulin [Mass ratio] 1.1 {ratio} Normal 0.9 - 1.6 [facility] Comment on above: Performed By: #### 2 76833 #### [facility],[address] [place] [address] 22154 ALK PHOS 63 U/L Normal 46 - 116 [facility] Comment on above: Performed By: #### 2 50954 #### [facility],[address] [place] [address] 13908 ALT [Catalytic activity/Vol] 37 U/L Normal 16 - 63 [facility] Comment on above: Performed By: #### 2 46570 #### [facility],[address] [place] [address] 14365 Anion gap [Moles/Vol] 12 mmol/L Normal 10 - 20 [facility] Comment on above: Performed By: #### 2 32638 #### [facility],[address] [place] [address] 33649 AST [Catalytic activity/Vol] 33 U/L Normal 15 - 37 [facility] Comment on above: Performed By: #### 2 02792 #### [facility],[address] [place] [address] 40300 B/C RATIO 19 ratio Normal 0 - 30 [facility] Comment on above: Performed By: #### 2 28507 #### [facility],[address] [place] [address] 08022 Bilirubin [Mass/Vol] 1.7 mg/dL High 0.2 - 1.0 [facility] Comment on above: Performed By: #### 2 10404 #### [facility],[address] [place] [address] 49933 Calcium [Mass/Vol] 8.5 mg/dL Normal 8.5 - 10.1 [facility] Comment on above: Performed By: #### 2 22234 #### [facility],[address] [place] [address] 83314 Chloride [Moles/Vol] 106 mmol/L Normal 98 - 107 [facility] Comment on above: Performed By: #### 2 42524 #### [facility],[address] [place] [address] 94842 CMP with eGFR Normal [facility] Comment on above: Result Comment: COMP REHENSIVE METABOLIC PANEL Performed By: #### 2 97820 #### [facility],[address] [place] [address] 75826 CO2 [Moles/Vol] 25.3 mmol/L Normal 21.0 - 32.0 [facility] Comment on above: Performed By: #### 2 86003 #### [facility],[address] [place] [address] 25523 Creatinine [Mass/Vol] 0.78 mg/dL Normal 0.70 - 1.30 [facility] Comment on above: Performed By: #### 2 02493 #### [facility],[address] [place] [address] 27489 GFR/1.73 sq M.predicted among non-blacks MDRD (S/P/Bld) [Vol rate/Area] mL/min/{1.73_m2} Normal 60 - 999 [facility] Comment on above: Performed By: #### 2 00627 #### [facility],[address] [place] [address] 39399 Result Comment: ACCO RDING TO THE NATIONAL KIDNEY DISEASE EDUCATION PROGRAM(NKDE), A NORMAL eGFR IS A VALUE GREATER THAN OR EQUAL TO 60 ML/MIN/1.73 SQ METERS. CHRONIC KIDNEY DISEASE: <60mL/MIN/1.73 SQ METERS KIDNEY FAILURE: <15mL/MIN/1.73 SQ METERS THIS TEST SHOULD ONLY BE USED FOR PATIENTS 18 YEARS OF AGE AND OLDER. Globulin (S) [Mass/Vol] 3.6 g/dL Normal 1.5 - 3.8 [facility] Comment on above: Performed By: #### 2 00677 #### [address] [address] Glucose [Mass/Vol] 88 mg/dL Normal 74 - 106 [facility] Comment on above: Performed By: #### 2 20132 #### [address] [address] Potassium [Moles/Vol] 4.0 mmol/L Normal 3.5 - 5.1 [facility] Comment on above: Performed By: #### 2 48476 #### [facility],[address] [place] [address] 40072 Protein [Mass/Vol] 7.4 g/dL Normal 6.4 - 8.2 [facility] Comment on above: Performed By: #### 2 75069 #### [facility],[address] [place] [address] 79936 Sodium [Moles/Vol] 139 mmol/L Normal 136 - 145 [facility] Comment on above: Performed By: #### 2 98858 #### [facility],[address] [place] [address] 33251 Urea nitrogen [Mass/Vol] 15 mg/dL Normal 7 - 18 [facility] Comment on above: Performed By: #### 2 61998 #### [facility],[address] [place] [address] 85748 LIPID PROFILEon 08-10-2024 Cholesterol [Mass/Vol] 127 mg/dL Normal 0 - 240 [facility] Comment on above: Performed By: #### 2 46022 #### [facility],[address] [place] [address] 04743 Cholesterol in HDL [Mass/Vol] 40 mg/dL Normal 40 - 60 [facility] Comment on above: Performed By: #### 2 45460 #### [facility],[address] [place] [address] 35957 Cholesterol in LDL [Mass/Vol] 72 mg/dL Normal 0 - 129 [facility] Comment on above: Performed By: #### 2 25865 #### [facility],[address] [place] [address] 10673 Cholesterol.total/Guera sterol in HDL [Mass ratio] 3.2 {ratio} Normal 0.0 - 5.0 [facility] Comment on above: Performed By: #### 2 00905 #### [facility],[address] [place] [address] 41070 Lipid 1996 panel Normal [facility] Comment on above: Result Comment: LIPI D PROFILE Performed By: #### 2 99626 #### [facility],[address] [place] [address] 02703 Triglyceride [Mass/Vol] 73 mg/dL Normal 0 - 150 [facility] Comment on above: Performed By: #### 2 92545 #### [facility],[address] [place] [address] 43975 T4-FREE (FREE THYROXINE)on 0 08-10-2024 Free T4 [Mass/Vol] 1.31 ng/dL Normal 0.76 - 1.46 [facility] Comment on above: Result Comment: P otential of falsely elevated results when biotin concentrations are > 10 ng/mL. Performed By: #### 2 49382 #### [facility],[address] [place] [address] 93782 TSHon 08-10-2024 TSH Qn 0.96 m[IU]/L Normal 0.35 - 3.74 [facility] Comment on above: Performed By: #### 2 89690 #### [facility],[address] [place] [address] URINALYSIS WITH MICROSCOPYon 08-10-2024 Amorphous NONE Normal [facility] Comment on above: Performed By: #### 2 20878 #### [facility],[address] [place] [address] Bacteria TRACE Normal [facility] Comment on above: Performed By: #### 2 06063 #### [facility],[address] [place] [address] Bilirubin Ql (U) Negative Normal NORMAL: NEGATIVE [facility] Comment on above: Performed By: #### 2 70476 #### [facility],[address] [place], [place] [id number] Casts NONE Normal [facility] Comment on above: Performed By: #### 2 46196 #### [facility],[address] [place], [place] [id number] Clarity (U) clear Normal NORMAL: CLEAR [facility] Comment on above: Performed By: #### 2 33428 #### [facility],[address] [place], [place] [id number] Color (U) yellow Normal NORMAL: YELLOW [facility] Comment on above: Performed By: #### 2 57186 #### [facility],[address] [place], [place] [id number] Crystals LM Nom (Urine sed) NONE Normal [facility] Comment on above: Performed By: #### 2 55277 #### [facility],[address] [place], [place] [id number] Epi Cells RARE Normal [facility] Comment on above: Performed By: #### 2 05069 #### [facility],[address] [place] [address] 16037 Glucose Ql (U) NORM Normal NORMAL: NORMAL [facility] Comment on above: Performed By: #### 2 80683 #### [facility],[address] [place] [address] 78119 Hemoglobin Ql (U) Negative Normal NORMAL: NEGATIVE [facility] Comment on above: Performed By: #### 2 84616 #### [facility],[address] [place] [address] 64059 Ketone Negative Normal NORMAL: NEGATIVE [facility] Comment on above: Performed By: #### 2 94913 #### [facility],[address] [place] [address] 38475 Leukocytes Negative Normal NORMAL: NEGATIVE [facility] Comment on above: Result Comment: URIN E MICROSCOPIC Performed By: #### 2 71257 #### [facility],[address] [place] [address] 44500 Mucous NONE Normal [facility] Comment on above: Performed By: #### 2 45407 #### [facility],[address] [place] [address] 54599 Nitrite Ql (U) Negative Normal NORMAL: NEGATIVE [facility] Comment on above: Performed By: #### 2 14223 #### [facility],[address] [place] [address] 20812 pH (U) 7 [pH] Normal NORMAL: 5.0-8.0 [facility] Comment on above: Performed By: #### 2 79132 #### [facility],[address] [place] [address] 54223 Protein Ql (U) Negative Normal NORMAL: NEGATIVE [facility] Comment on above: Performed By: #### 2 53015 #### [facility],[address] [place] [address] 19590 Rbc 0-5 Normal 0-3 / hpf [facility] Comment on above: Performed By: #### 2 64566 #### [facility],[address] [place] [address] 78279 Sp [place] 1.005 Low NORMAL: 1.010-1.030 [facility] Comment on above: Performed By: #### 2 66914 #### [facility],[address] [place] [address] Specimen Type R Normal [facility] Comment on above: Performed By: #### 2 73329 #### [facility],[address] [place] [address] URINALYSIS WITH MICROSCOPY Normal [facility] Comment on above: Result Comment: URIN ALYSIS Performed By: #### 2 61824 #### [facility],[address] [place] [address] Urobilinog NORM Normal NORMAL: NORMAL [facility] Comment on above: Performed By: #### 2 80467 #### [facility],[address] [place] [address] 50671 Wbc 1-5 Normal 0-5 / hpf [facility] Comment on above: Performed By: #### 2 24498 #### [facility],[address] [place] [address] 04860 Yeast NONE Normal [facility] Comment on above: Performed By: #### 2 85938 #### [facility],[address] [place] [address] 65570 VITAMIN D, 25 HYDROXYon 06 VitD 43.00 ng/mL Normal 30.00 - 100 [facility] Comment on above: Result Comment: 25-O HD3 [...] D2 Not Established Performed By: #### 2 87119 #### [facility],[address] [place] [address] 40871 CBC + DIFFon 01-26-2024 Baso # 0.03 x10EE3/UL Normal 0.00 - 0.10 [facility] Comment on above: Performed By: #### 2 04453 #### [facility],[address] [place] [address] 49466 Basophils/100 WBC (Bld) 0.6 % Normal 0.0 - 2.0 [facility] Comment on above: Performed By: #### 2 04353 #### [facility],[address] [place] [address] 77931 CBC + DIFF Normal [facility] Comment on above: Result Comment: CBC- COMPLETE BLOOD COUNT Performed By: #### 2 33036 #### [facility],[address] [place] [address] 22133 EO # 0.19 x10EE3/UL Normal 0.00 - 0.50 [facility] Comment on above: Performed By: #### 2 33741 #### [facility],[address] [place] [address] 18946 Eosinophils/100 WBC (Bld) 3.4 % Normal 0.0 - 7.0 [facility] Comment on above: Performed By: #### 2 55151 #### [facility],[address] [place] [address] 59247 Erythrocyte distribution width (RBC) [Ratio] 13.1 % Normal 12.0 - 15.6 [facility] Comment on above: Performed By: #### 2 70403 #### [facility],[address] [place] [address] 30036 Hematocrit (Bld) [Volume fraction] 46.0 % Normal 40.0 - 52.0 [facility] Comment on above: Performed By: #### 2 02641 #### [facility],[address] [place] [address] 27119 Hemoglobin (Bld) [Mass/Vol] 15.4 g/dL Normal 13.0 - 17.5 [facility] Comment on above: Performed By: #### 2 65738 #### [facility],[address] [place], [place] [address] Lymph # 1.65 x10EE3/UL Normal 0.80 - 2.80 [facility] Comment on above: Performed By: #### 2 38612 #### [facility],[address] [place], [place] [address] Lymphocytes/100 WBC (Bld) 29.1 % Normal 20.0 - 45.0 [facility] Comment on above: Performed By: #### 2 66493 #### [facility],[address] [place], [place] [address] MANUAL DIFF N/A Normal [facility] Comment on above: Performed By: #### 2 70471 #### [facility],[address] [place] [address] 29147 MCH (RBC) [Entitic mass] 30 pg Normal 27 - 33 [facility] Comment on above: Performed By: #### 2 70009 #### [facility],[address] [place] [address] 95429 MCHC 34 X10 3 Normal 32 - 36 [facility] Comment on above: Performed By: #### 2 92568 #### [facility],[address] [place] [address] 67854 MCV (RBC) [Entitic vol] 90 fL Normal 81 - 98 [facility] Comment on above: Performed By: #### 2 18827 #### [facility],[address] [place] [address] 59180 [place] # 0.48 x10EE3/UL Normal 0.20 - 1.00 [facility] Comment on above: Performed By: #### 2 36777 #### [facility],[address] [place] [address] 30921 MONOS % 8.4 % Normal 0.0 - 10.0 [facility] Comment on above: Performed By: #### 2 93284 #### [facility],[address] [place] [address] 36915 Morphology Shahbaz (Bld) [Interp] N/A Normal [facility] Comment on above: Performed By: #### 2 17352 #### [facility],[address] [place] [address] 83709 Neut # 3.33 x10EE3/UL Normal 1.50 - 7.10 [facility] Comment on above: Performed By: #### 2 02265 #### [facility],[address] [place] [address] 38008 Neutrophils/100 WBC (Bld) 58.5 % Normal 46.0 - 76.0 [facility] Comment on above: Performed By: #### 2 56529 #### [facility],[address] [place] [address] 99609 PLATELET 214 x10EE3/UL Normal 150 - 450 [facility] Comment on above: Performed By: #### 2 40223 #### [facility],[address] [place] [address] 21509 Platelet mean volume (Bld) [Entitic vol] 8.5 fL Normal 6.4 - 10.5 [facility] Comment on above: Result Comment: AUTO MATED DIFFERENTIAL Performed By: #### 2 66198 #### [facility],[address] [place] [address] 80476 RBC 5.12 x 10EE6/UL Normal 4.50 - 6.00 [facility] Comment on above: Performed By: #### 2 06781 #### [facility],[address] [place] [address] 27832 WBC 5.7 x 10EE3/UL Normal 4.5 - 10.8 [facility] Comment on above: Performed By: #### 2 40480 #### [facility],[address] [place] [address] 98385 CMP with eGFRon 01-26-2024 AGE 63 years Normal [facility] Comment on above: Performed By: #### 2 63153 #### [facility],[address] [place] [address] 81942 Albumin [Mass/Vol] 3.8 g/dL Normal 3.4 - 5.0 [facility] Comment on above: Performed By: #### 2 08511 #### [facility],[address] [place] [address] 30981 Albumin/Globulin [Mass ratio] 1.0 {ratio} Normal 0.9 - 1.6 [facility] Comment on above: Performed By: #### 2 57174 #### [facility],[address] [place] [address] 12370 ALK PHOS 65 U/L Normal 46 - 116 [facility] Comment on above: Performed By: #### 2 94115 #### [facility],[address] [place] [address] 16739 ALT [Catalytic activity/Vol] 32 U/L Normal 16 - 63 [facility] Comment on above: Performed By: #### 2 42034 #### [facility],[address] [place] [address] 28496 Anion gap [Moles/Vol] 9 mmol/L Low 10 - 20 [facility] Comment on above: Performed By: #### 2 71150 #### [facility],[address] [place] [address] 49036 AST [Catalytic activity/Vol] 20 U/L Normal 15 - 37 [facility] Comment on above: Performed By: #### 2 61809 #### [facility],[address] [place] [address] 63087 B/C RATIO 14 ratio Normal 0 - 30 [facility] Comment on above: Performed By: #### 2 92696 #### [facility],[address] [place] [address] 69186 Bilirubin [Mass/Vol] 1.5 mg/dL High 0.2 - 1.0 [facility] Comment on above: Performed By: #### 2 50684 #### [facility],[address] [place] [address] 24408 Calcium [Mass/Vol] 8.8 mg/dL Normal 8.5 - 10.1 [facility] Comment on above: Performed By: #### 2 91334 #### [facility],[address] [place] [address] 44243 Chloride [Moles/Vol] 104 mmol/L Normal 98 - 107 [facility] Comment on above: Performed By: #### 2 11123 #### [facility],[address] [place] [address] 41851 CMP with eGFR Normal [facility] Comment on above: Result Comment: COMP REHENSIVE METABOLIC PANEL Performed By: #### 2 61663 #### [facility],[address] [place] [address] 59953 CO2 [Moles/Vol] 29.9 mmol/L Normal 21.0 - 32.0 [facility] Comment on above: Performed By: #### 2 05412 #### [facility],[address] [place] [address] 66785 Creatinine [Mass/Vol] 1.02 mg/dL Normal 0.70 - 1.30 [facility] Comment on above: Performed By: #### 2 53845 #### [facility],[address] [place] [address] 89592 GFR/1.73 sq M.predicted among non-blacks MDRD (S/P/Bld) [Vol rate/Area] mL/min/{1.73_m2} Normal 60 - 999 [facility] Comment on above: Performed By: #### 2 77218 #### [facility],[address] [place] [address] 02641 Result Comment: ACCO RDING TO THE NATIONAL KIDNEY DISEASE EDUCATION PROGRAM(NKDE), A NORMAL eGFR IS A VALUE GREATER THAN OR EQUAL TO 60 ML/MIN/1.73 SQ METERS. CHRONIC KIDNEY DISEASE: <60mL/MIN/1.73 SQ METERS KIDNEY FAILURE: <15mL/MIN/1.73 SQ METERS THIS TEST SHOULD ONLY BE USED FOR PATIENTS 18 YEARS OF AGE AND OLDER. Globulin (S) [Mass/Vol] 3.9 g/dL High 1.5 - 3.8 [facility] Comment on above: Performed By: #### 2 56051 #### [address] [address] Glucose [Mass/Vol] 95 mg/dL Normal 74 - 106 [facility] Comment on above: Performed By: #### 2 92698 #### [address] [address]128 Potassium [Moles/Vol] 4.1 mmol/L Normal 3.5 - 5.1 [facility] Comment on above: Performed By: #### 2 72090 #### [address] [address]125 Protein [Mass/Vol] 7.7 g/dL Normal 6.4 - 8.2 [facility] Comment on above: Performed By: #### 2 57733 #### [address] [address]36 Sodium [Moles/Vol] 139 mmol/L Normal 136 - 145 [facility] Comment on above: Performed By: #### 2 85545 #### [address] [address]237 Urea nitrogen [Mass/Vol] 14 mg/dL Normal 7 - 18 [facility] Comment on above: Performed By: #### 2 30205 #### [address] [address] LIPID PROFILEon 11-27-2024 Cholesterol [Mass/Vol] 136 mg/dL Normal 0 - 240 [facility] Comment on above: Performed By: #### 2 81187 #### [facility],[address] [place] [address] 68773 Cholesterol in HDL [Mass/Vol] 41 mg/dL Normal 40 - 60 [facility] Comment on above: Performed By: #### 2 03904 #### [facility],[address] [place] [address] 42095 Cholesterol in LDL [Mass/Vol] 82 mg/dL Normal 0 - 129 [facility] Comment on above: Performed By: #### 2 25563 #### [facility],[address] [place] [address] 84575 Cholesterol.total/Guera sterol in HDL [Mass ratio] 3.3 {ratio} Normal 0.0 - 5.0 [facility] Comment on above: Performed By: #### 2 25308 #### [facility],[address] [place] [address] 55748 Lipid 1996 panel Normal [facility] Comment on above: Result Comment: LIPI D PROFILE Performed By: #### 2 86336 #### [facility],[address] [place] [address] 34939 Triglyceride [Mass/Vol] 64 mg/dL Normal 0 - 150 [facility] [facility] Comment on above: Performed By: #### [id number] #### [facility],[address] [place] [id number] TSHon 01-26-2024 TSH Qn 4.98 m[IU]/L High 0.35 - 3.74 [facility] Comment on above: Performed By: #### [id number] #### [facility],[address] [place] [address] [id number] VITAMIN D, 25 HYDROXYon 12-31 VitD 34.00 ng/mL Normal 30.00 - 100 [facility] Comment on above: Result Comment: 25-O HD3 [...] D2 Not Established Performed By: #### [id number] #### [facility],[address] [facility] [address] Absolute lymphocyte countOrd ered By: Dr. Siu on 07-26-2022 Lymphocytes Auto (Unsp spec) [#/Vol] 1.86 10*3/uL 0.83-4.51 [facility] Basophil percentageOrdered B y: Dr. Siu on 07-26-2022 Basophils/100 WBC (Bld) 0.4 % 0-1 [facility] Chloride [Moles/Vol] 110 mmol/L 98-107 [facility] Eosinophils/100 WBC (Bld) 3.1 % 0-5 [facility] Glucose [Mass/Vol] 133 mg/dL 74-106 [facility] Comment on above: Fasting Glucose resu lt greater than or equal to 126 mg/dL suggests DIABETES MELLITUS per A.D.A. criteria. Neutrophils (Bld) [#/Vol] 4.1 10*3/uL 2.0-7.7 [facility] Neutrophils/100 WBC (Bld) 60.6 % 47-70 [facility] Potassium [Moles/Vol] 4.0 mmol/L 3.5-5.1 [facility] Sodium [Moles/Vol] 143 mmol/L 136-145 [facility] WBC (Bld) [#/Vol] 6.7 10*3/uL 4.4-11.0 [facility] Blood erythrocytes count (nu mber/volume)Ordered By: Dr. Siu on 07-26-2022 RBC (Bld) [#/Vol] 4.82 10*6/uL 4.6-6.[address] [facility] Blood hemoglobin measurement (mass/volume)Ordered By: Dr. Siu on 07-26-2022 Hemoglobin (Bld) [Mass/Vol] 14.7 g/dL 13.0-16.5 [facility] Blood lymphocytes/100 leukoc ytesOrdered By: Dr. Siu on 07-26-2022 Lymphocytes/100 WBC (Bld) 27.8 % 19-41 [facility] Blood monocytes/100 leukocyt esOrdered By: Dr. Siu on 07-26-2022 Monocytes/100 WBC (Bld) 7.8 % 0-10 [facility] Blood platelet mean volumeOr dered By: Dr. Siu on 07-26-2022 Platelet mean volume (Bld) [Entitic vol] 11.2 fL 6.2-12.0 [facility] Determination of erythrocyte mean corpuscular volume (MCV)Ordered By: Dr. Siu on 07-26-2022 MCV (RBC) [Entitic vol] 90.0 fL 80-94 [facility] Hematocrit Auto (Bld) [Volum e fraction]Ordered By: Dr. Siu on 07-26-2022 Hematocrit (Bld) [Volume fraction] 43.4 % 40-54 [facility] Laboratory - Chemistry and C hemistry - challengeOrdered By: Dr. Siu on 07-26-2022 CO2 [Moles/Vol] 25.0 mmol/L 21.0-32.0 [facility] Urea nitrogen/Creatinine [Mass ratio] 22.4 mg/mg 10-20 [facility] - Hematology and Cell countsOrdered By: Dr. Siu on 07-26-2022 Erythrocyte distribution width (RBC) [Entitic vol] 40.7 fL 35.1-43.9 [facility] Erythrocyte distribution width (RBC) [Ratio] 12.3 % 11.6-14.6 [facility] Immature granulocytes/100 WBC (Bld) 0.300 % 0.0-0.9 [facility] Comment on above: IG% - Immature Granu locytes (promyelocytes, myelocytes and metamyelocytes) > 1% indicates that a LEFT SHIFT is Present. MCH (RBC) [Entitic mass] 30.5 pg 27.0-32.0 [facility] Nucleated RBC/100 WBC (Bld) [Ratio] 0 % 0-5 [facility] MCHC Auto (RBC) [Mass/Vol]Or dered By: Dr. Siu on 07-26-2022 MCHC (RBC) [Mass/Vol] 33.9 g/dL 32-36 [facility] No Panel InformationOrdered By: Dr. Siu on 07-26-2022 Estimated Creatinine Clearance Calc 83.17 ml/min [facility] Estimated GFR (MDRD) Amer 117 mL/min >60 [facility] Comment on above: GFR Calc Estimated GFR (MDRD) Non-Af Amer 97 mL/min >60 [facility] Comment on above: Non- GFR Calc Platelets bldOrdered By: Dr. Siu on 07-26-2022 Platelets (Bld) [#/Vol] 191 10*3/uL 150-450 [facility] Serum or plasma calcium matilde urement (mass/volume)Ordered By: Dr. Siu on 07-26-2022 Calcium [Mass/Vol] 8.5 mg/dL 8.5-10.1 [facility] Serum or plasma creatinine m easurement (mass/volume)Ordered By: Dr. Siu on 07-26-2022 Creatinine [Mass/Vol] 0.85 mg/dL 0.70-1.30 [facility] Comment on above: The validity of the calculated GFR & GFRAA in patients over 70 years has not been determined. Clinical correlation is essential. Serum or plasma urea nitroge n measurement (mass/volume)Ordered By: Dr. Siu on 07-26-2022 Urea nitrogen [Mass/Vol] 19 mg/dL 7-18 [facility] Thin prep Papanicolaou smear with manual screeningOrdered By: Dr. Siu on 07-26-2022 Thin prep Papanicolaou smear with manual screening 8 5-15 [facility] Vital Signs Date Time Vital Sign Value Performing Clinician Faci lity 09-03-2024 13:53-0400 Body height 170.[address] Sathya Govea MD Work Phone: [facility] 09-03-2024 13:53-0400 Body mass index (BMI) [Ratio] 33.8 kg/m2 Dr. Sathya Govea MD Work Phone: [facility] 09-03-2024 13:53-0400 Body temperature 98 [degF] Dr. Sathya Govea MD Work Phone: [facility] 09-03-2024 13:53-0400 Body weight 97.[address] Sathay Govea MD Work Phone: [facility] 09-03-2024 13:53-0400 Diastolic blood pressure 78 mm[Hg] Dr. Sathya Govea MD Work Phone: [facility] 09-03-2024 13:53-0400 Heart rate 83 /min Dr. Sathya Govea MD Work Phone: [facility] 09-03-2024 13:53-0400 Respiratory rate 18 /min Dr. Sathya Govea MD Work Phone: [facility] 09-03-2024 13:53-0400 SaO2% (BldA) [Mass fraction] 97 % Dr. Sathya Govea MD Work Phone: [facility] 09-03-2024 13:53-0400 Systolic blood pressure 116 mm[Hg] Dr. Sathya Govea MD Work Phone: [facility] 08-31-2024 09:19-0400 Body height 170.[address] Sathya Govea MD Work Phone: [facility] 08-31-2024 09:19-0400 Body mass index (BMI) [Ratio] 34.6 kg/m2 Dr. Sathya Govea MD Work Phone: [facility] 08-31-2024 09:19-0400 Body weight 100.[address] Sathya Govea MD Work Phone: [facility] 08-31-2024 09:19-0400 Diastolic blood pressure 71 mm[Hg] Dr. Sathya Govea MD Work Phone: [facility] 08-31-2024 09:19-0400 Heart rate 76 /min Dr. Sathya Govea MD Work Phone: [facility] 08-31-2024 09:19-0400 Respiratory rate 17 /min Dr. Sathya Govea MD Work Phone: [facility] 08-31-2024 09:19-0400 SaO2% (BldA) [Mass fraction] 95 % Dr. Sathya Govea MD Work Phone: [facility] 08-31-2024 09:19-0400 Systolic blood pressure 106 mm[Hg] Dr. Sathya Govea MD Work Phone: [facility] 07-26-2022 05:42-0400 Diastolic blood pressure 80 mm[Hg] [facility] 07-26-2022 05:42-0400 Heart rate 65 /min [facility] 07-26-2022 05:42-0400 Respiratory rate 15 /min [facility] 07-26-2022 05:42-0400 SaO2% (BldA) [Mass fraction] 97 % [facility] 07-26-2022 05:42-0400 Systolic blood pressure 133 mm[Hg] [facility] 07-26-2022 03:00-0400 Body height 171.45 cm [facility] 07-26-2022 03:00-0400 Body mass index (BMI) [Ratio] 32.8 kg/m2 [facility] 07-26-2022 03:00-0400 Body temperature 98.4 [degF] [facility] 07-26-2022 03:00-0400 Body weight 96.6 kg [facility] Encounters Encounter Date Encounter Type Care Provider Facility Start: 12-22-2024 End: 12-22-2024 ambulatory KELSEY BRAXTON Facility:[facility] Start: 12-21-2024 End: 12-22-20[facility] Start: 12-13-2024 End: 12-13-2024 ambulatory KELSEY BRAXTON Facility:[facility] Start: 12-13-2024 End: 12-13-2024 ambulatory KELSEY BRAXTON Facility:[facility] Start: 10-24-2024 ambulatory No Primary Car e Physician Facility:[facility] Start: 09-29-2024 ambulatory MAY [facility] Start: 09-26-2024 End: 09-26-2024 ambulatory MAY [facility] Start: 09-18-2024 End: 09-18-2024 [facility]: 09-14-2024 End: 09-14-2024 ambulatory MAY [facility] Start: 09-11-2024 End: 09-11-2024 ambulatory MAY [facility] Start: 09-07-2024 End: 09-07-2024 Emergency department patient visit MAY [facility] Start: 09-04-2024 End: 09-04-[address] Sathya Govea MD Work Phone: -Laboratory Specimen Start: 09-04-2024 End: 09-04-2024 Patient encounter procedure Victor M Bills Katie FOAM FABRICATOR-C -[facility] Specimen Work Phone: Start: 09-03-2024 End: 09-03-2024 Patient encounter procedure Victor M Bills Katie FOAM FABRICATOR-C [facility] Work Phone: Start: 09-03-2024 End: 09-04-[address] Sathya Govea MD Work Phone: [facility] Start: 08-31-2024 End: 08-31-[address] Kwadwo Linares MD -[facility] Work Phone: Start: 08-31-2024 End: 08-31-[address] Sathya Govea MD Work Phone: -[facility] Start: 08-30-2024 End: 08-30-2024 Emergency department patient visit MAY [facility] Start: 08-18-2024 End: 08-18-2024 ambulatory SATHYA GOVEA [facility] Start: 08-10-2024 End: 08-10-2024 ambulatory BUTROS MD LATOUF [facility] Start: 07-19-2024 ambulatory [facility] Start: 01-26-2024 End: 01-26-2024 ambulatory SATHYA GOVEA [facility] Start: 07-26-2022 End: 07-26-2022 Emergency department patient visit [facility]-Emergency Department Procedures Date Procedure Procedure Detail Performing Clinician Start: 09-03-2024 Bacteria identificat ion test Dr. Sathya Govea MD Work Phone: Start: 08-10-2024 PSA screening SATHYA NELSON Comment on above: Performed By: #### [id number] #### [facility],[address] [place] [address] Plan of Treatment Date Care Activity Detail Author Colonoscopy [facility] Patient Education ED BPV Vertigo [facility] Work Phone: Patient referral [facility] Work Phone: [facility] Payers Date Payer Category Payer Self-pay [id number] 2024 Unknown [id number] 2024 Unknown [id number] 1960 Unknown [id number] 2.16.8 [id number] 1959 Unknown [id number] 2.16.8 40.1.192362.3.579.2.651 1959 Unknown [id number] 2.16.8 40.1.477427.3.579.2.651 1959 Unknown [id number] 2.16.8 40.1.710343.3.579.2.651 1959 Unknown [id number] 2.16.8 40.1.816844.3.579.2.651 1959 Unknown [id number] 2.16.8 40.1.364882.3.579.2.651 1959 Unknown [id number] 2.16.8 40.1.131123.3.579.2.651 1959 Unknown [id number] 2.16.8 40.1.946624.3.579.2.651 1959 Unknown [id number] 2.16.8 40.1.042016.3.579.2.651 1959 Unknown [id number] 2.16.8 40.1.036724.3.579.2.651 1959 Unknown [id number] 2.16.8 40.1.648939.3.579.2.651 1959 Unknown [id number] 2.16.8 40.1.560321.3.579.2.651 Unknown [id number] Unknown [id number] 2.16.8 40.1.895824.3.579.2.462 Unknown [id number] 2.16.8 40.1.790916.3.579.2.462 Unknown [id number] 2.16.8 40.1.056786.3.579.2.462 Unknown [id number] 2.16.8 [id number] Unknown [id number] Social History Date Type Detail Facility Start: 07-26-2022 Tobacco smoking stat us VAIS Unknown if ever smoked [facility] Start: 1960 Sex Assigned At Male [facility] Start: 07-26-2022 End: 09-03-2024 Tobacco smoking status NHIS Never smoked tobacco (finding) [facility] Mental Status Date Assessment Result Facility 07-26-2022 Cognitive function Level Of Cons ciousness Awake;Alert;Appropriate;Follow s Commands [facility] Work Phone: Progress note 12-22-2024 Note Date & Type Note Facility 12-22-2024 Note HNO ID: [id number] Author: KELSEY BRAXTON MD Service: ? Author [...] vomiting, or diarrhea or abdominal pain. No OR bleeding or melana : No history of [...] Awake, alert, not in acute distress, obese RESORT DESK CLERK: Answering questions appropriately. No abnormal posturing or [...] Cholesterol, Nonfasting < (more content not included)... [facility] Progress note 12-13-2024 Note Date & Type Note Facility 12-13-2024 Note HNO ID: [id number] Author: KELSEY BRAXTON MD Service: ? Author [...] vomiting, or diarrhea or abdominal pain. No OR bleeding or melana : No history of [...] General: Awake, alert, not in acute distress RESORT DESK CLERK: Answering questions appropriately. No abnormal posturing or [...] to obtain rec (more content not included)... [facility] Evaluation note 08-31-2024 Note Date & Type Note Facility 08-31-2024 Evaluation note Diagnosis Onset Date Resolution Difficulty swallowing acute Singh 2024 9:00am Encounter for screening for malignant neoplasm of colon acute August 31, 2024 9 :00am Acute pharyngitis acute August 12:48pm [facility] Work Phone: Progress note 08-31-2024 Note Date & Type Note Facility 08-31-2024 Progress note [facility] Progress note 08-31-2024 Note Date & Type Note Facility 08-31-2024 Progress note Note Date/Time August 31, 2024 9:26a m [facility] [address] [place] [address] OFFICE VISIT Date of Service: 08/31/24 MR#: [id number] Acct: [id number] Name: TOD PABON Jr. Rep #: [id number] : 1960 Provider: Dr. Francisco Linares MD Age/Sex: 64/M Location: [facility] Status: Signed Intake Vital Signs 07/26/22 03:00 [...] General: cooperative Orientation: alert and oriented x3 [facility] Head: normal to inspection Neck Neck: [...] proceed with procedure. Kwadwo Linares MD Pager: [facility] [address] [place] [address], [address] [place] [address] Office: Orders: Orders Colonoscopy Today EGD Today [...] Cosigner Signature: Date (if applicable) CC: ~ [facility] Work Phone: Discharge summary 07-26-2022 Note Date & Type Note Facility 07-26-2022 Discharge summary Note Date/Time July 26, 2022 3:37a m [facility] Medical Records Department [address] [place] [address] Emergency Department Summary 07/26/22 MR#: [id number] Acct: [id number] Name: TOD PABON Jr. Rep #:[id number] : 1960 62 From: Mario Siu DO [...] states he has no history of vertigo. [facility] Medical History Bradycardia Home Medications aspirin 81 [...] Reports moist mucous membranes HEENT Narrative: Positive [place]-Hall[place] Eyes PERRL and EOMs intact bilaterally Chest [...] % (Auto) 60.6 Lymph % (Auto) 27.8 [place] % (Auto) 7.8 Eos % (Auto) 3.1 [...] 125 mcg tablet 125 mcg PO DAILY [place] 3 Fish Oil Capsule 1,000 mg PO [...] your Primary Care Provider. Call [facility] ([phone]) or report to the closest Emergency Room. Call 911 if necessary. 07/26/22 4045 <Electronically signed by Mario Siu DO> Cosigner Signature (if applicable): CC: Dr. Sathya Govea MD ~ Signed [facility] Work Phone: Evaluation note Note Date & Type Note Facility Evaluation note No assessment information availa ble [facility] Work Phone: Evaluation note Note Date & Type Note Facility Evaluation note Diagnosis Onset Date Resolution Difficulty swallowing acute Aug 9:00am Encounter for screening for malignant neoplasm of colon acute August 31, 2024 9 :00am [facility] Work Phone: Reason for referral (narrative) Note Date & Type Note Facility Reason for referral (narrative) No reason for referral information available [facility] Work Phone: Chief Complaint and Reason [...] July 26, 2022 3 :05am Power of Tool Straightener Yes July 26, 2022 3:05am Name of Medical Power of Tool Straightener sister July 26, 2022 3:05am Family History [...] Inactive Member Role/Relationship Status Dates Dr. Sathya oGvea MD Primary Care Provider Active Start: September 03, 2024 End: September 03, 2024 Dr. Sathya Govea MD Referring Provider Active Start: September 03, 2024 End: September 03, 2024 Victor M Wilson NP, FOAM FABRICATOR-C Attending Provider Active S tart: September 03, 2024 End: September 03, 2024 Team Status: Inactive Member Role/Relationship Status Dates Dr. Sathya Govea MD Primary Care Provider Active Start: September 04, 2024 End: September 04, 2024 Victor M Wilson FOAM FABRICATOR, FOAM FABRICATOR-C Attending Provider Active S tart: September 04, 2024 End: September 04, 2024 Victor M Wilson FOAM FABRICATOR, FOAM FABRICATOR-C Referring Provider Active S tart: September 04, [...] section and content) DATE CREATED AUTHOR 10/29/2024 [facility] DATE CREATED AUTHOR AUTHOR'S ORGANIZ ATION 12/27/2024 [facility] DATE CREATED AUTHOR AUTHOR'S ORGANIZ ATION 01/08/2025 [facility] FOR RECORDS PERTAINING TO PATIENTS WHO ARE [...] BE BASED ON THE PRIMARY CLINICAL RECORDS. [employer] [facility]. provides no warranty or guarantee of the accuracy or completeness of information in this document.
--- NOTE | 2025-02-25 06:18 | PCM.HP.STD ---
HPI - General General Date of Admission: 02/25/25 Chief Complaint: Chest pain HPI Narrative TOD PABON, is a 64 M with medical history significant for hypertension and a recently positive stress test done for new onset chest pain. Patient started having exertional chest pains recently for which she under went a stress test at [facility] in [place] which came back positive, we do not have access to further details unfortunately. That was done around a week ago. Based on that he is planned for cardiac cath next March 02 Last night he woke up with chest pain that was substernal radiating to the left hand, shoulders and neck but not accompanied by shortness of breath, sweating, nausea or other symptoms. He does not have nitroglycerin at home but in the ED the pain resolved after 1 pill of nitroglycerin In the ED vitals were okay except for rate in the 60s EKG showed sinus rhythm rate 63 normal axis, Q waves in leads III, no T wave inversions. No significant ST elevation or depression. Patient will be admitted to hospital with unstable angina as his initial troponin was negative, will be managed with dual antiplatelets and IV heparin in addition to other antianginal/anti-ischemic measures as well as cardiology consultation to determine whether he needs early intervention [facility] Medical History (Updated 02/25/25 @ 06:[address] Christina Black MD) Cancer Anxiety Alcohol use Thyroid disease Arthritis Varicose veins of both lower extremities High cholesterol Back pain History of diverticulitis Heartburn Non-smoker History of pain when walking History of Holter monitoring History of echocardiogram History of stress test Hypertension History of edema Cardiology follow-up encounter History of irregular heartbeat History of COVID-19 Thyroid disease Bradycardia Home Medications ?Medication ?Instructions ?Recorded ?Last Taken ?Type aspirin 81 mg capsule 81 mg PO DAILY heart health 07/26/22 10/19/24 History atorvastatin 10 mg tablet 5 mg PO DAILY cholesterol 07/26/22 Unknown History levothyroxine 125 mcg tablet 125 mcg PO DAILY thyroid 07/26/22 Unknown History omega-3 fatty acids 1,000 mg PO DAILY supplement 07/26/22 10/19/24 History ascorbic acid (vitamin C) 500 mg 500 mg PO DAILY supplement 08/31/24 Unknown History capsule cholecalciferol (vitamin D3) 50 3,000 unit PO QDAY supplement 08/31/24 Unknown History mcg (2,000 unit) capsule lisinopril 2.5 mg tablet 2.5 mg PO DAILY blood pressure 10/20/24 Unknown History buspirone 5 mg tablet 5 mg PO DAILY PRN anxiety 02/25/25 Unknown History Allergy/AdvReac Type Severity Reaction Status Date / Time morphine Allergy Mild Other Verified 02/25/25 02:43 prednisone Allergy PT UNSURE Verified 02/25/25 02:43 OF REACTION Family History Mother Myocardial infarction Diabetes Sister Breast cancer Surgical History Hx of colonoscopy History of hydrocelectomy Social History Smoking Status: Never smoker ROS Constitutional Constitutional: Denies fever(s) or poor appetite ENT HEENT: Reports none Cardiovascular Cardiovascular: Reports chest pain; Denies dyspnea Respiratory/Chest Respiratory/Chest: Denies cough or wheezing Gastrointestinal Gastrointestinal: Denies abdominal pain or change in bowel habits Genitourinary Genitourinary: Denies change in urinary stream or dysuria Musculoskeletal Musculoskeletal: Denies arthralgias or myalgias Integumentary Integumentary: Reports none Neurologic Neurologic: Denies abnormal speech, dizziness, focal weakness, loss of vision or numbness Hematologic/Lymphatic Hematologic/Lymphatic: Reports none Patient's Goals Of Care . What would you like to achieve or improve as a result of your hospital stay?: Get better Vital Signs Vital Signs Vital Signs: 02/25/25 02:38 02/25/25 02:38 02/25/25 02:43 Temperature 98.1 F Temperature Source Oral Pulse Rate 64 Respiratory Rate 18 Respiratory Effort Normal Blood Pressure 167/101 H Blood Pressure Mean 123 Blood Pressure Source Blood Pressure Position Blood Pressure Location Pulse Ox 100 Oxygen Delivery Method Room Air Room Air 02/25/25 02:51 02/25/25 03:08 02/25/25 04:27 Temperature Temperature Source Pulse Rate 56 L 58 L Respiratory Rate 16 Respiratory Effort Blood Pressure 157/89 H 128/89 H 99/72 Blood Pressure Mean 102 81 Blood Pressure Source Blood Pressure Position Blood Pressure Location Pulse Ox 98 Oxygen Delivery Method Room Air 02/25/25 05:43 02/25/25 05:43 02/25/25 06:13 Temperature 97.9 F 97.8 F Temperature Source Oral Pulse Rate 54 L 54 L 50 L Respiratory Rate 16 16 16 Respiratory Effort Blood Pressure 142/95 H 142/95 H 155/96 H Blood Pressure Mean 110 110 115 Blood Pressure Source Monitor Blood Pressure Position Semi-Fowlers Blood Pressure Location Right Arm Pulse Ox 98 98 98 Oxygen Delivery Method Room Air Room Air Weight Weight: 97.5 kg Body Mass Index (BMI) 33.6 Physical Exam Const alert and oriented x3 HEENT normocephalic and head/scalp atraumatic Eyes EOMs intact bilaterally; Negative for no scleral icterus Neck supple Resp normal respiratory effort and clear to auscultation bilaterally Cardio regular rate and regular rhythm; Negative for no murmurs GI normal to inspection, nondistended, normoactive bowel sounds; Negative for non-tender no CVA tenderness Extremity no joint enlargement and no pedal edema Skin no rashes or lesions noted Neuro oriented x3 and moves all extremities Results Lab / Micro Data 02/25/25 02:54 02/25/25 02:54 Labs: Laboratory Results - last 24 hr 02/25/25 02:54: WBC 7.2, RBC 4.77, Hgb 14.5, Hct 41.3, MCV 86.6, MCH 30.4, MCHC 35.1, RDW Std Deviation 37.2, RDW Coeff of [place] 11.7, Plt Count 224, MPV 10.9, Immature Gran % (Auto) 0.400, Neut % (Auto) 53.7, Lymph % (Auto) 31.3, [place] % (Auto) 9.7, Eos % (Auto) 4.2, Baso % (Auto) 0.7, Absolute Neuts (auto) 3.9, Absolute Lymphs (auto) 2.25, Nucleated RBC % 0, PT 13.7, INR 1.0, APTT 28.8, Sodium 139, Potassium 4.3, Chloride 105, Carbon Dioxide 22.9, Anion Gap 11, BUN 16, Creatinine 1.00, Estim Creat Clear Calc 83.98, Est GFR (MDRD) Non-Af 84, BUN/Creatinine Ratio 16.4, Glucose 96, Calcium 8.9, Troponin T High Sens 6, NT pro BNP II < 36 Assessment & Plan Assessment/Plan (1) Unstable angina: (2) Abnormal stress test: (3) Hypertension: QUALIFIERS: Hypertension type: primary hypertension Qualified Code(s): I10 - Essential (primary) hypertension (4) Hyperlipidemia: QUALIFIERS: Hyperlipidemia type: familial hypercholesterolemia PLAN: Plan Admission to cardiac unit PCU Plavix 300 mg x 1 followed by 75 mg daily Continue aspirin IV heparin Increase Lipitor to 40 mg (high intensity). Check lipid panel Nitroglycerin as needed Heart rate in the 60s will watch without beta-blockers Continue home lisinopril Repeat troponin Cardiology consultation N.p.o. Charges/Coding Visit Charges Inpatient E&M: 53241 Init Hosp L3 A[place]Y Risk Score for UA/STEMI Assesmment (YES = 1) Age > or = 65: Yes > or = 3 CAD risk factors (HTN, Hypercholesterolemia, Diabetes, family hx, current smoker): Yes Known CAD (Stenosis > or = 50%): Yes ASA used in past 7 days: Yes Severe angina (> or = 2 episodes in 24 hrs): Yes EKG ST change > or = 0.5mm: No Positive cardiac markers: No Score AUBREY Risk Score of mortality/ recurrent ischemic event over the next 14 days: 5 = 26.6% - HIGH RISK
[2025-02-25 06:37] LABS: Troponin T High Sens 2 HR 6 ng/L (<=22)
[2025-02-25] MEDS: HEPARIN/D5w 25,000 UNITS 25,000 UNITS/250 ML IV.SOLN. 10 UNITS CONT INF (06:55)
[2025-02-25] MEDS: Heparin Injection (Vial) 5,000 UNIT/ML VIAL 4000 UNIT IV (06:56)
--- NOTE | 2025-02-25 07:05 | EKG12_ITS ---
Test Reason : AM EKG Blood Pressure : */* mmHG Vent. Rate : 55 BPM Atrial Rate : 55 BPM P-R Int : 158 ms QRS Dur : 76 ms QT Int : 414 ms P-R-T Axes : 40 20 37 degrees QTcB Int : 396 ms Sinus bradycardia Low voltage QRS Borderline ECG When compared with ECG of 25-Feb-2025 06:25, MANUAL COMPARISON REQUIRED DATA IS UNCONFIRMED Confirmed by Rafael Ortiz ([id number]), editorial director SANDRA MILES ([id number]) on 03/02/2025 7:34:15 AM Referred By: Christina Black Confirmed By: Rafael Ortiz
[2025-02-25 07:44] LABS: Cholesterol 139 mg/dL (<=200); Low Density Lipoprotein Calc. 93 mg/dL; Triglycerides 72 mg/dL; Very Low Density Lipoprotein 14 mg/dL (5-40); cholesterol:hdl ratio screen 4.46
[2025-02-25 08:24] LABS: Hematocrit 40.1 % (40-54); Hemoglobin 14.4 g/dL (13.0-16.5); Immature Granulocytes Count 0.020 X10^3/uL (0.0-0.0); Mean Corp Hgb Conc 35.9 g/dL (32-36); Mean Corpuscular Volume 86.2 fL (80-94); Mean Platelet Vol. 10.9 fl (6.2-12.0); NRBC Flagged by Analyzer 0 % (0-5); Platelet Count 217 K/mm3 (150-450); RBC Distribution Width CV 11.9 % (11.6-14.6); RBC Distribution Width SD 37.4 fl (35.1-43.9); Red Blood Count 4.65 M/mm3 (4.6-6.2); White Blood Count 5.8 K/mm3 (4.4-11.0)
[2025-02-25 08:38] LABS: Prothrombin Time (Protime)PT. 15.7 SECONDS (11.7-14.9)
[2025-02-25 08:41] LABS: Partial Thromboplast Time 143.8 Seconds (24.1-36.2)
--- NOTE | 2025-02-25 09:15 | PCM.CONS.C ---
Assessment & Plan Assessment/Plan (1) Chest pain: PLAN: ? Patient with possible cardiac chest pain as well as reported abnormal stress test and risk factors for ACS/CAD ? No need for urgent/emergent heart catheterization however patient wishes to maintain admission and complete heart catheterization tomorrow ? Okay to eat today and n.p.o. after midnight ? Further recommendations to follow (2) Abnormal stress test: PLAN: ? Plan as above n.p.o. at midnight for possible heart catheterization tomorrow morning after evaluation by cardiology team (3) Hypertension: QUALIFIERS: Hypertension type: primary hypertension Qualified Code(s): I10 - Essential (primary) hypertension PLAN: ? Somewhat labile blood pressure. Can be elevated at times and borderline low other times ? For now recommend continuation of home medications with goal blood pressure less than 130/80 (4) Hyperlipidemia: QUALIFIERS: Hyperlipidemia type: familial hypercholesterolemia PLAN: ? Recommend continuation of at least moderate intensity statin. Patient reports atorvastatin 5 mg daily consideration for increasing to 10 mg suggested however can complete after discharge ? Goal LDL less than 100. Will reduce goal to less than 70 if patient does have any significant CAD (5) Obesity (BMI 30-39.9): PLAN: ? BMI of 33.7. Recommend improved diet and exercise along with weight loss ? 150?180 minutes of moderate intensity exercise per week suggested PLAN: Plan ? As noted above plan for n.p.o. at midnight possible heart catheterization if cardiology team is agreeable ? Otherwise continue current medications along with aggressive lifestyle/risk factor modification HPI Consult Data Date of Consult: 02/25/25 HPI Narrative Reason for Consultation: Chest pain HPI Narrative: TOD PABON, is a 64 M with past medical history of hypertension and hyperlipidemia presents to the emergency department due to acute onset of chest pain. He reports that approximately 3 days ago started having some substernal chest tightness with radiation into his neck and down his arms that lasted for a few minutes then resolved. He states that he had some achiness in his chest for short period of time and this eventually resolved therefore did not present to the emergency department. It is noted that apparently he had a stress test recently at another facility which was reportedly abnormal and has planned for a heart catheterization next Wednesday. Day of admission patient started having substernal chest pain again similar to previous therefore presented to the Emergency Department for evaluation. Upon arrival to the [facility] patient overall hemodynamically stable cardiac troponin within normal limits. Patient admitted and cardiology consulted. During my evaluation this morning he reports some mild soreness in his chest but overall no further concerning episodes of active chest pain. Patient remains overall hemodynamically stable no other concerning cardiovascular complaints or issues. [facility] Medical History Cancer Anxiety Alcohol use Thyroid disease Arthritis Varicose veins of both lower extremities High cholesterol Back pain History of diverticulitis Heartburn Non-smoker History of pain when walking History of Holter monitoring History of echocardiogram History of stress test Hypertension History of edema Cardiology follow-up encounter History of irregular heartbeat History of COVID-19 Thyroid disease Bradycardia Home Medications ?Medication ?Instructions ?Recorded ?Last Taken ?Type aspirin 81 mg capsule 81 mg PO DAILY heart health 07/26/22 10/19/24 History atorvastatin 10 mg tablet 5 mg PO DAILY cholesterol 07/26/22 Unknown History levothyroxine 125 mcg tablet 125 mcg PO DAILY thyroid 07/26/22 Unknown History omega-3 fatty acids 1,000 mg PO DAILY supplement 07/26/22 10/19/24 History ascorbic acid (vitamin C) 500 mg 500 mg PO DAILY supplement 08/31/24 Unknown History capsule cholecalciferol (vitamin D3) 50 3,000 unit PO QDAY supplement 08/31/24 Unknown History mcg (2,000 unit) capsule lisinopril 2.5 mg tablet 2.5 mg PO DAILY blood pressure 10/20/24 Unknown History buspirone 5 mg tablet 5 mg PO DAILY PRN anxiety 02/25/25 Unknown History Allergy/AdvReac Type Severity Reaction Status Date / Time morphine Allergy Mild Other Verified 02/25/25 02:43 prednisone Allergy PT UNSURE Verified 02/25/25 02:43 OF REACTION Family History Mother Myocardial infarction Diabetes Sister Breast cancer Surgical History Hx of colonoscopy History of hydrocelectomy Social History Smoking Status: Never smoker ROS ROS Narrative 12 systems reviewed and negative unless stated above Physical Exam Const alert and oriented x3 Orientation / Consciousness: awake HEENT normocephalic Eyes PERRL Neck full ROM and no carotid bruits Resp normal respiratory effort and clear to auscultation bilaterally Cardio Cardio Narrative: Bradycardic regular rate and regular rhythm. No appreciated murmurs, rubs, or gallops GI normal to inspection, nondistended, normoactive bowel sounds, soft to palpation and non-tender Extremity normal to inspection and no clubbing, cyanosis or edema Skin no rashes or lesions noted Neuro Neuro Narrative: Moves all extremities with good sensation Psych Psych Narrative: Normal mood and affect Charges/Coding Visit Charges Inpatient E&M: 21910 Init Hosp L3 Objective Data Vital Signs: Vital Signs Temp Pulse Resp BP Pulse Ox O2 Del Method O2 Flow Rate 97.8 F 50 L 16 155/96 H 95 Nasal Cannula 2 02/25/25 06:13 02/25/25 06:13 02/25/25 06:13 02/25/25 06:13 02/25/25 07:00 02/25/25 08:34 02/25/25 08:34 Oxygen Flow Rate (L/min) 2 Oxygen Delivery Method Nasal Cannula Weight: 214 lb 15.211 oz Body Mass Index (BMI) 33.6 Intake & Output: Intake and Output for Last 24 Hours 02/23/25 02/24/25 02/25/25 23:59 23:59 23:59 Intake Total 19.17 / 19.17 Balance 19.17 / 19.17 Lab / Micro Data Attestation: I reviewed the patient's lab results. Lab results narrative: Labs reviewed and pertinent results discussed with the patient 02/25/25 08:08 02/25/25 02:54 Labs: Laboratory Results - last 24 hr 02/25/25 02:54: WBC 7.2, RBC 4.77, Hgb 14.5, Hct 41.3, MCV 86.6, MCH 30.4, MCHC 35.1, RDW Std Deviation 37.2, RDW Coeff of [place] 11.7, Plt Count 224, MPV 10.9, Immature Gran % (Auto) 0.400, Neut % (Auto) 53.7, Lymph % (Auto) 31.3, [place] % (Auto) 9.7, Eos % (Auto) 4.2, Baso % (Auto) 0.7, Absolute Neuts (auto) 3.9, Absolute Lymphs (auto) 2.25, Nucleated RBC % 0, PT 13.7, INR 1.0, APTT 28.8, Sodium 139, Potassium 4.3, Chloride 105, Carbon Dioxide 22.9, Anion Gap 11, BUN 16, Creatinine 1.00, Estim Creat Clear Calc 83.98, Est GFR (MDRD) Non-Af 84, BUN/Creatinine Ratio 16.4, Glucose 96, Calcium 8.9, Troponin T High Sens 6, NT pro BNP II < 36, Triglycerides 72, Cholesterol 139, LDL Cholesterol, Calc 93, VLDL Cholesterol 14, HDL Cholesterol 31 L, Cholesterol/HDL Ratio 4.46, TSH 4.220 H 02/25/25 05:48: Troponin T Hi Sens 2 Hr 6 02/25/25 08:08: WBC 5.8, RBC 4.65, Hgb 14.4, Hct 40.1, MCV 86.2, MCH 31.0, MCHC 35.9, RDW Std Deviation 37.4, RDW Coeff of [place] 11.9, Plt Count 217, MPV 10.9, Immature Gran % (Auto) 0.300, Neut % (Auto) 59.1, Lymph % (Auto) 27.4, [place] % (Auto) 8.5, Eos % (Auto) 4.0, Baso % (Auto) 0.7, Absolute Neuts (auto) 3.4, Absolute Lymphs (auto) 1.58, Nucleated RBC % 0, PT 15.7 H, INR 1.2, APTT 143.8 H* Rhythm Strip Rhythm Strip: Sinus Rhythm (Normal sinus rhythm to sinus bradycardia with occasional episodes of narrow complex tachycardia likely atrial tachycardia as well as occasional PVCs on telemetry) Cardiology Labs/Tests 02/25/25 02:54: WBC 7.2, RBC 4.77, Hgb 14.5, Hct 41.3, MCV 86.6, MCH 30.4, MCHC 35.1, Plt Count 224, MPV 10.9, Immature Gran % (Auto) 0.400, Neut % (Auto) 53.7, Lymph % (Auto) 31.3, [place] % (Auto) 9.7, Eos % (Auto) 4.2, Baso % (Auto) 0.7, Absolute Neuts (auto) 3.9, Nucleated RBC % 0, PT 13.7, INR 1.0, APTT 28.8, Sodium 139, Potassium 4.3, Chloride 105, Carbon Dioxide 22.9, Anion Gap 11, BUN 16, Creatinine 1.00, Est GFR (MDRD) Non-Af 84, BUN/Creatinine Ratio 16.4, Glucose 96, Calcium 8.9, Triglycerides 72, Cholesterol 139, VLDL Cholesterol 14, HDL Cholesterol 31 L, Cholesterol/HDL Ratio 4.46 02/25/25 08:08: WBC 5.8, RBC 4.65, Hgb 14.4, Hct 40.1, MCV 86.2, MCH 31.0, MCHC 35.9, Plt Count 217, MPV 10.9, Immature Gran % (Auto) 0.300, Neut % (Auto) 59.1, Lymph % (Auto) 27.4, [place] % (Auto) 8.5, Eos % (Auto) 4.0, Baso % (Auto) 0.7, Absolute Neuts (auto) 3.4, Nucleated RBC % 0, PT 15.7 H, INR 1.2, APTT 143.8 H* Rhythm: EKG: ECHO: Stress Test: Cardiac Cath: PCI: CT Surgery: Holter monitor: EPS: PPM: CXR: Chest CT Scan: Radiography Diagnostic Testing: Radiology Impression Chest X-Ray 02/25/25 02:50 IMPRESSION: No radiographic evidence of acute cardiopulmonary pathology. Reading Location: [facility] Risk Score for UA/STEMI Assesmment (YES = 1) Risk Stratification Applicable: Yes Age > or = 65: Yes > or = 3 CAD risk factors (HTN, Hypercholesterolemia, Diabetes, family hx, current smoker): Yes Known CAD (Stenosis > or = 50%): No ASA used in past 7 days: Yes Severe angina (> or = 2 episodes in 24 hrs): No EKG ST change > or = 0.5mm: No Positive cardiac markers: No Score AUBREY Risk Score of mortality/ recurrent ischemic event over the next 14 days: 3 = 13.2% Intermediate Risk
[2025-02-25] MEDS: Cholecalciferol (VIT D3) 25 MCG TABLET (1,000 UNITS) 50 MCG PO (09:51)
[2025-02-25] MEDS: 0.9% Saline Lock 10 ML Syringe IV (10:46)
--- NOTE | 2025-02-25 12:14 | PCM.PN.BLA ---
Assessment & Plan Assessment/Plan (1) Unstable angina: (2) Abnormal stress test: (3) Hypertension: QUALIFIERS: Hypertension type: primary hypertension Qualified Code(s): I10 - Essential (primary) hypertension (4) Hyperlipidemia: QUALIFIERS: Hyperlipidemia type: familial hypercholesterolemia PLAN: Plan 1. Concern for unstable angina/essential HTN/HLD ? Continue with heparin drip ? Plan for heart cath in the morning ? Appreciate cardiology's assistance ? Troponins are unremarkable ? He was loaded with Plavix ? He did have a recently positive stress test at an outside hospital which was done approximately a week ago ? Continue with his home blood pressure and cholesterol medications 2. Hypothyroidism ? Stable ? Continue Synthroid DVT: Heparin drip
[2025-02-25 16:32] LABS: Partial Thromboplast Time 40.9 Seconds (24.1-36.2)
[2025-02-25] MEDS: Heparin Nomogram Adjustment 5,000 UNIT/ML VIAL IV (16:54)
[2025-02-25 23:35] LABS: Partial Thromboplast Time 62.8 Seconds (24.1-36.2)
[2025-02-26] VITALS (14 sets, daily range): BP systolic 88–134; BP diastolic 63–95; PULSE 50–70; RESP 14–18; TEMP 35.9–36.7; O2SAT 94–98
[2025-02-26] MEDS: Aspirin E.C. 81 MG Tablet PO (05:21)
--- NOTE | 2025-02-26 05:55 | EKG12_ITS ---
Test Reason : CP ADMIT Blood Pressure : */* mmHG Vent. Rate : 53 BPM Atrial Rate : 53 BPM P-R Int : 148 ms QRS Dur : 76 ms QT Int : 430 ms P-R-T Axes : 9 13 39 degrees QTcB Int : 403 ms Sinus bradycardia Otherwise normal ECG Confirmed by Rafael Ortiz ([id number]), technical editor SANDRA MILES ([id number]) on 03/02/2025 7:34:41 AM Referred By: Christina Black Confirmed By: Rafael Ortiz
[2025-02-26 06:19] LABS: Hematocrit 41.3 % (40-54); Hemoglobin 14.4 g/dL (13.0-16.5); Immature Granulocytes Count 0.030 X10^3/uL (0.0-0.0); Mean Corp Hgb Conc 34.9 g/dL (32-36); Mean Corpuscular Volume 87.9 fL (80-94); Mean Platelet Vol. 11.0 fl (6.2-12.0); NRBC Flagged by Analyzer 0 % (0-5); Platelet Count 213 K/mm3 (150-450); RBC Distribution Width CV 11.9 % (11.6-14.6); RBC Distribution Width SD 38.2 fl (35.1-43.9); Red Blood Count 4.70 M/mm3 (4.6-6.2); White Blood Count 6.9 K/mm3 (4.4-11.0)
[2025-02-26 06:23] LABS: Anion Gap 11 (7-18); BUN 15 mg/dL (4-19); BUN/Creat Ratio 16.3 RATIO (10-20); Calcium,Total 8.9 mg/dL (7.6-11.0); Carbon Dioxide 21.0 mmol/L (20.0-29.0); Chloride 107 mmol/L (96-106); Estimated Creatinine Clearance 90.04 ml/min (50-250); Glucose 97 mg/dL (70-99); Potassium 4.0 mmol/L (3.5-5.1)
[2025-02-26 06:30] LABS: Partial Thromboplast Time 68.5 Seconds (24.1-36.2)
--- NOTE | 2025-02-26 08:32 | PN.CARD_ITS ---
Subjective Subjective HPI Narrative Reason for Consultation: Chest pain HPI Narrative: TOD PABON, is a 64 M with past medical history of hypertension and hyperlipidemia presents to the emergency department due to acute onset of chest pain, with recent positive stress test. Cardiology following for possible unstable angina. Current medications include: Aspirin 81 mg daily, atorvastatin 5 mg daily, Plavix 75 mg daily, IV heparin. Patient underwent coronary angiogram today that showed nonobstructive coronary artery disease. Echo performed showed preserved ejection fraction, normal wall motion, without any hemodynamically significant valvular disease. Patient seen at bedside, he admits no acute complaints and otherwise feels his baseline. Objective Data Vital Signs: Vital Signs Temp Pulse Resp BP Pulse Ox O2 Del Method O2 Flow Rate 98 F 61 16 128/89 H 97 Room Air 2 02/26/25 07:47 02/26/25 07:47 02/26/25 07:47 02/26/25 07:47 02/26/25 07:47 02/26/25 07:47 02/25/25 08:34 Oxygen Flow Rate (L/min) 2 Oxygen Delivery Method Room Air Weight: 214 lb 15.211 oz Body Mass Index (BMI) 33.6 Intake & Output: Intake and Output for Last 24 Hours 02/24/25 02/25/25 02/26/25 23:59 23:59 23:59 Intake Total 982.45 / 982.45 123.3 / 123.3 Balance 982.45 / 982.45 123.3 / 123.3 Lab / Micro Data 02/26/25 05:42 02/26/25 05:42 Labs: Laboratory Results - last 24 hr 02/25/25 08:08: PT 15.7 H, INR 1.2, APTT 143.8 H* 02/25/25 16:12: APTT 40.9 H 02/25/25 23:05: APTT 62.8 H 02/26/25 05:42: WBC 6.9, RBC 4.70, Hgb 14.4, Hct 41.3, MCV 87.9, MCH 30.6, MCHC 34.9, RDW Std Deviation 38.2, RDW Coeff of [place] 11.9, Plt Count 213, MPV 11.0, Immature Gran % (Auto) 0.400, Neut % (Auto) 54.2, Lymph % (Auto) 32.0, [place] % (Auto) 9.2, Eos % (Auto) 3.3, Baso % (Auto) 0.9, Absolute Neuts (auto) 3.8, Absolute Lymphs (auto) 2.22, Nucleated RBC % 0, APTT 68.5 H, Sodium 139, Potassium 4.0, Chloride 107 H, Carbon Dioxide 21.0, Anion Gap 11, BUN 15, Creatinine 0.91, Estim Creat Clear Calc 90.04, Est GFR (MDRD) Non-Af 94, BUN/Creatinine Ratio 16.3, Glucose 97, Calcium 8.9 Rhythm Strip Rhythm Strip: Sinus Rhythm (Normal sinus rhythm to sinus bradycardia with occasional episodes of narrow complex tachycardia likely atrial tachycardia as well as occasional PVCs on telemetry) Cardiology Labs/Tests 02/25/25 08:08: PT 15.7 H, INR 1.2, APTT 143.8 H* 02/25/25 16:12: APTT 40.9 H 02/25/25 23:05: APTT 62.8 H 02/26/25 05:42: WBC 6.9, RBC 4.70, Hgb 14.4, Hct 41.3, MCV 87.9, MCH 30.6, MCHC 34.9, Plt Count 213, MPV 11.0, Immature Gran % (Auto) 0.400, Neut % (Auto) 54.2, Lymph % (Auto) 32.0, [place] % (Auto) 9.2, Eos % (Auto) 3.3, Baso % (Auto) 0.9, Absolute Neuts (auto) 3.8, Nucleated RBC % 0, APTT 68.5 H, Sodium 139, Potassium 4.0, Chloride 107 H, Carbon Dioxide 21.0, Anion Gap 11, BUN 15, Creatinine 0.91, Est GFR (MDRD) Non-Af 94, BUN/Creatinine Ratio 16.3, Glucose 97, Calcium 8.9 Rhythm: EKG: ECHO: Stress Test: Cardiac Cath: PCI: CT Surgery: Holter monitor: EPS: PPM: CXR: Chest CT Scan: Physical Exam Narrative ?Gen: A&Ox3, NAD ?HEENT: Normocephalic/Atraumatic, MMM ?Neck: Supple, no JVD ?Pulm: Normal work of breathing, CTA bilaterally with no wheezes or crackles ?CV: RRR, normal S1/S2, no m/r/g ?Abd: Soft, NT/ND ?Extr: Warm to touch, no LE edema, distal pulses intact and symmetric in upper and lower extremities ?Neuro: No gross focal deficits, normal speech ?Psych: Normal affect, answers questions appropriately Assessment & Plan Assessment/Plan (1) Unstable angina: PLAN: - Patient with negative troponins, coronary angiogram with nonobstructive coronary artery disease - Patient had slow flow through 3 vessels, possible spasm component -Echocardiogram with preserved biventricular function and without any hemodynamically significant valvular disease, also with normal diastolic function -Discontinue Plavix and heparin; continue aspirin 81 mg daily, atorvastatin 40 mg daily, and amlodipine 5 mg daily (2) Hypertension: QUALIFIERS: Hypertension type: primary hypertension Qualified Code(s): I10 - Essential (primary) hypertension PLAN: - Continue amlodipine 5 mg daily - Goal blood pressure less than 130/80 (3) Hyperlipidemia: QUALIFIERS: Hyperlipidemia type: familial hypercholesterolemia PLAN: ? Continue high intensity statin as above - Goal LDL ideally below 70 (4) Obesity (BMI 30-39.9): PLAN: ? BMI of 33.7. Recommend improved diet and exercise along with weight loss ? 150?180 minutes of moderate intensity exercise per week suggested
--- NOTE | 2025-02-26 10:30 | ECHOD_ITS ---
Reason For Study Reason For Study: CHEST PAIN Procedure This was a 2D Doppler, Color Flow transthoracic echocardiogram. The patient is in sinus rhythm. Exam performed portable in patient room. Left Ventricle Normal-sized left ventricle. Normal left ventricular wall thickness. Left ventricular EF by Klein's biplane: 65%. Normal diastolic function. No regional wall motion abnormalities noted. Right Ventricle Normal right ventricle. Normal systolic function. Right ventricular systolic pressure estimated to be 20 mmHg. Atria The left and right atria are normal. Right atrial pressure estimated at: 3 mmHg. Mitral Valve Normal mitral valve. Trace mitral regurgitation. No mitral stenosis. Tricuspid Valve Normal tricuspid valve. No tricuspid stenosis. Trace tricuspid regurgitation. Aortic Valve Trileaflet aortic valve. No hemodynamically significant aortic stenosis. No aortic regurgitation. Pulmonic Valve Normal pulmonic valve. No pulmonic stenosis. Trace pulmonic regurgitation. Great Vessels Normal sized aortic root. Normal ascending aorta. Pericardium/Pleural No pericardial effusion. MMode/2D Measurements & Calculations LVIDd: 5.6 cm IVSd: 0.90 cm asc Aorta Diam: 3.6 cm LVIDs: 4.2 cm LVPWd: 0.62 cm RVDd: 3.4 cm FS: 24.3 % LAV(MOD-bp): 39.7 ml LVAd ap4: 28.0 cm2 LVAd ap2: 23.3 cm2 LAV(MOD-bp) Indexed: 19.0 ml/m2 LVLd ap4: 8.1 cm LVLd ap2: 7.6 cm LAV(MOD-sp2): 33.3 ml EDV(MOD-sp4): 82.9 ml EDV(MOD-sp2): 60.4 ml LAV(MOD-sp4): 34.3 ml EDV(sp4-el): 82.0 ml EDV(sp2-el): 60.4 ml LVAs ap4: 14.0 cm2 LVAs ap2: 12.4 cm2 LVLs ap4: 6.0 cm LVLs ap2: 6.3 cm ESV(MOD-sp4): 27.9 ml ESV(MOD-sp2): 22.4 ml ESV(sp4-el): 27.5 ml ESV(sp2-el): 20.7 ml EF(MOD-sp4): 66.3 % EF(MOD-sp2): 62.9 % EF(sp4-el): 66.5 % SV(MOD-sp4): 55.0 ml SV(MOD-sp2): 38.0 ml EDV(MOD-bp): 72.8 ml SI(MOD-sp4): 26.4 ml/m2 SI(MOD-sp2): 18.2 ml/m2 ESV(MOD-bp): 25.3 ml EF(MOD-bp): 65.2 % SV(sp4-el): 54.5 ml LA dimension(2D): 2.7 cm LA A4 area: 15.4 cm2 RA A4 area: 11.3 cm2 TAPSE: 2.0 cm Time Measurements MV dec time: 0.19 sec Doppler Measurements & Calculations MV E max ivan: 61.4 cm/sec Lat Peak E' Ivan: 6.7 cm/sec Med Peak E' Ivan: 9.6 cm/sec MV A max ivan: 76.1 cm/sec E/E' lat: 9.1 E/E' med: 6.4 MV E/A: 0.81 Ao V2 max: 144.9 cm/sec LV V1 max: 119.1 cm/sec MV dec slope: 326.5 cm/sec2 Ao max P.4 mmHg LV V1 max P.7 mmHg Ao V2 mean: 93.0 cm/sec LV V1 mean P.3 mmHg Ao mean P.1 mmHg LV V1 mean: 66.7 cm/sec Ao V2 VTI: 24.7 cm LV V1 VTI: 22.5 cm AV (velocity ratio): 0.91 PA V2 max: 71.2 cm/sec TR max ivan: 184.7 cm/sec TR max P.6 mmHg ECHO/Echo Complete Interpretation Summary Normal left ventricular systolic function, with EF: 65% by Klein's biplane Normal left ventricular diastolic function Normal right ventricular systolic function No hemodynamically significant valvular disease Ordering Physician: Eduin Byers Referring Physician: Kelsey Braxton Performed By: Renan Medina RDCS
[2025-02-26] MEDS: Cholecalciferol (VIT D3) 25 MCG TABLET (1,000 UNITS) 50 MCG PO (11:38)
--- NOTE | 2025-02-26 12:44 | CASEMGMT ---
Social Work Face to Face with pt for initial transition planning/care coordination assessment. SW introduced self and role at [facility], pt voices understanding and consents to assessment. Pt is A&O x4 and answers all questions appropriately at this time. Admitting Dx: unstable angina Primary Care Doctor: Dr. Kelsey Braxton Speciality doctors: weighmaster Insurance: Medicare and [facility] Pharmacy: Patient utilizes [facility] in [place]. Advanced directives: yes, requested for his chart LNOK:. 6 siblings, no children Living Situation: Patient lives at home alone with 0 steps into the home. ADL's/Prior level of functioning: independent Transportation: Patient still drives. DME: cane, but does not use it half-way/home health history: none Support/Community Services: [facility] Mental Health: none Substance abuse history: Patient used drugs between the ages of 17 to 27. Assessment: Patient lives at home alone with 0 steps into the home. Family helps the patient if needed. PLAN: DC home. GABBY Villalta
--- NOTE | 2025-02-26 14:12 | PCM.PN.HOSP ---
Subjective Subjective Doing well, no issues overnight Objective Data Objective Data Vital Signs: Vital Signs Temp Pulse Resp BP Pulse Ox O2 Del Method O2 Flow Rate 98 F 63 14 124/86 H 98 Room Air 2 02/26/25 13:21 02/26/25 13:21 02/26/25 13:21 02/26/25 13:21 02/26/25 13:21 02/26/25 13:21 02/25/25 08:34 Oxygen Flow Rate (L/min) 2 Oxygen Delivery Method Room Air Weight: 214 lb 15.211 oz Body Mass Index (BMI) 33.6 Intake & Output: Intake and Output for Last 24 Hours 02/25/25 02/26/25 02/27/25 03:59 03:59 03:59 Intake Total 982.45 / 982.45 427.55 / 427.55 Balance 982.45 / 982.45 427.55 / 427.55 Lab / Micro Data 02/26/25 05:42 02/26/25 05:42 Labs: Laboratory Results - last 24 hr 02/25/25 16:12: APTT 40.9 H 02/25/25 23:05: APTT 62.8 H 02/26/25 05:42: WBC 6.9, RBC 4.70, Hgb 14.4, Hct 41.3, MCV 87.9, MCH 30.6, MCHC 34.9, RDW Std Deviation 38.2, RDW Coeff of Cyndee 11.9, Plt Count 213, MPV 11.0, Immature Gran % (Auto) 0.400, Neut % (Auto) 54.2, Lymph % (Auto) 32.0, Wharton % (Auto) 9.2, Eos % (Auto) 3.3, Baso % (Auto) 0.9, Absolute Neuts (auto) 3.8, Absolute Lymphs (auto) 2.22, Nucleated RBC % 0, APTT 68.5 H, Sodium 139, Potassium 4.0, Chloride 107 H, Carbon Dioxide 21.0, Anion Gap 11, BUN 15, Creatinine 0.91, Estim Creat Clear Calc 90.04, Est GFR (MDRD) Non-Af 94, BUN/Creatinine Ratio 16.3, Glucose 97, Calcium 8.9 Rhythm Strip Rhythm Strip: Sinus Rhythm (Normal sinus rhythm to sinus bradycardia with occasional episodes of narrow complex tachycardia likely atrial tachycardia as well as occasional PVCs on telemetry) Physical Exam Narrative General: Alert, Oriented x3, Cooperative, No apparent distress HEENT: Atraumatic, PERRLA, EOMI, Normocephalic Oral: Moist Mucosa Neck: Supple, No JVD Lungs: Diminished, Normal air movement, No rhonchi, No wheeze, No rales Cardiovascular: Regular rate, Regular Rhythm, Normal S1, Normal S2, No murmurs Abdomen: Soft, Non Tender, Non-Distended, No Hepato-splenomegaly Extremities: No edema, Capillary Refill Less than 3 Seconds Skin: No rashes, No breakdown Musculoskeletal: No Tenderness to Palpation of Joints or Extremities Neurological: No focal neurological deficits, moves all extremities Psych/Mental Status: Normal Affect, Appropriate Assessment & Plan Assessment/Plan (1) Unstable angina: (2) Abnormal stress test: (3) Hypertension: QUALIFIERS: Hypertension type: primary hypertension Qualified Code(s): I10 - Essential (primary) hypertension (4) Hyperlipidemia: QUALIFIERS: Hyperlipidemia type: familial hypercholesterolemia PLAN: Plan 1. Concern for unstable angina/essential HTN/HLD ? Cardiac catheterization today showed minimal disease and concern for possible spasm ? Started on Norvasc and cardiology related to monitoring for 1 more day prior to discharge ? Appreciate cardiology's assistance ? Troponins are unremarkable ? Can discontinue the Plavix and continue with aspirin ? He did have a recently positive stress test at an outside hospital which was done approximately a week ago ? Continue with his home blood pressure and cholesterol medications ? Lipitor has been increased from 5 mg to 40 mg 2. Hypothyroidism ? TSH on admission was slightly elevated to 4.22 ? Will recheck a T4 ? He states that he was getting palpitations with his Synthroid at 125 mcg therefore he decreased himself to 75 mcg DVT: Ambulation Charges/Coding Visit Charges Inpatient E&M: 05253 Subs Hosp L2
[2025-02-27 04:10] VITALS: BP 117/84; PULSE 58; RESP 18; TEMP 35.9; O2SAT 97
[2025-02-27 08:22] LABS: Magnesium 2.2 mg/dL (1.5-2.2)
[2025-02-27 10:05] VITALS: BP 115/77; PULSE 61; RESP 18; TEMP 36.8; O2SAT 95
[2025-02-27] MEDS: Aspirin E.C. 81 MG Tablet PO (10:11)
[2025-02-27] MEDS: Cholecalciferol (VIT D3) 25 MCG TABLET (1,000 UNITS) 50 MCG PO (10:11)
--- NOTE | 2025-02-27 10:13 | CASEMGMT ---
Social Work SW spoke with the patient and patient requested information on medical alert button. SW provided the patient with resources. GABBY Villalta
--- NOTE | 2025-02-27 10:24 | PCM.DC ---
Discharge Instructions DC O2, CPAP, BIPAP needs Home O2 Discharge instructions: No Dressing / Incision Discharge Activity: Return to Normal Activity Dressing / Incision Call your doctor if you observe: Fever of 101 or Higher, Shortness of breath, Dizziness, Fainting spells, Swelling in the ankles, Chest pain and Increased palpitations (irregular heartbeat) Follow Up Care Test Results: Test results from this visit will be discussed in further detail at your follow-up appointment, if applicable. Discharge Plan Admission Admit Date/Time: 02/25/25 04:58 Attending Provider: Brady Sierra Primary Care Provider: Kelsey Braxton Consulting Providers: Christina Black; Doug Ventura; Shruthi Maguire; Shiva Resendiz; Rodrick Rodriguez; Eduin Byers; Ej Collado; Shiraz Bhatti; Jero Hall; Rafael Ortiz; Jenny Ayala; Orlin Judd; Michael Worrell; Nataly Rojas; Gabriel Craft; Kyrie Eaton; Alden Funes; Victor M Wilson LEAD INSTALLER; Bhavna Holguin PA; Tyler Haque Instructions Additional Instructions / Restrictions: Nonobstructive coronary artery disease and echocardiogram was unremarkable and normal. He had low flow through 3 coronary artery vessels consistent with possible spasm component therefore initiated on Norvasc. Discharge Orders/Prescriptions Prescriptions: New atorvastatin 40 mg Tablet 40 mg PO QHS 30 Days Qty: 30 0RF amlodipine 5 mg Tablet 5 mg PO DAILY 30 Days Qty: 30 0RF levothyroxine 75 mcg Tablet 75 mcg PO DAILY@0600 30 Days Qty: 30 0RF Continued cholecalciferol (vitamin D3) 50 mcg (2,000 unit) capsule 3,000 unit PO QDAY ascorbic acid (vitamin C) 500 mg capsule 500 mg PO DAILY omega-3 fatty acids Capsule 1,000 mg PO DAILY aspirin 81 mg Capsule 81 mg PO DAILY lisinopril 2.5 mg tablet 2.5 mg PO DAILY buspirone 5 mg tablet 5 mg PO DAILY PRN Discontinued atorvastatin 10 mg tablet 5 mg PO DAILY levothyroxine 125 mcg tablet 125 mcg PO DAILY Referrals / Follow Up: Kelsey Braxton MD [Primary Care Provider, [facility]] - Within 1 Week Disposition Disposition (needs filled in before D/C Order can be placed): Home, Self Care
[2025-02-27 10:36] VITALS: BP 115/77; PULSE 61; RESP 18; TEMP 36.8; O2SAT 95
--- NOTE | 2025-02-27 11:00 | PCM.DC.SUM ---
Providers Date of Admission: 02/25/25 Primary Care Physician: Dr. Kelsey Braxton MD Consultations 02/25/25 06:04 Consult: Cardiology Routine Consulting Provider: Linda Schaefer Reason for Consult: unstable angina EMERGENT Consult: Yes MD Notified: Yes Date Notified: 02/25/25 Time Notified: 08:25 Method of Notification: Text Reason For Visit: UNSTABLE ANGINA Diagnosis Discharge Diagnosis (1) Unstable angina: Status: Acute Code(s): I20.0 - Unstable angina (2) Hypertension: Status: Chronic Code(s): I10 - Essential (primary) hypertension Qualifiers: Hypertension type: primary hypertension Qualified Code(s): I10 - Essential (primary) hypertension (3) Hyperlipidemia: Status: Acute Code(s): E78.5 - Hyperlipidemia, unspecified Qualifiers: Hyperlipidemia type: familial hypercholesterolemia (4) Obesity (BMI 30-39.9): Status: Acute Code(s): E66.9 - Obesity, unspecified Medications at Discharge Home Medications aspirin 81 mg capsule 81 mg PO DAILY [facility] 07/26/22 omega-3 fatty acids 1,000 mg PO DAILY supplement 07/26/22 ascorbic acid (vitamin C) 500 mg capsule 500 mg PO DAILY supplement 08/31/24 cholecalciferol (vitamin D3) 50 mcg (2,000 unit) capsule 3,000 unit PO QDAY supplement 08/31/24 lisinopril 2.5 mg tablet 2.5 mg PO DAILY blood pressure 10/20/24 buspirone 5 mg tablet 5 mg PO DAILY PRN anxiety 02/25/25 amlodipine 5 mg tablet 5 mg PO DAILY 30 days #30 tabs 02/27/25 atorvastatin 40 mg tablet 40 mg PO QHS 30 days #30 tabs 02/27/25 levothyroxine 75 mcg tablet 75 mcg PO DAILY@0600 30 days #30 tabs 02/27/25 Hospital Course Operations None Procedures 2-D Echocardiogram and Cardiac catheterization Summary of Care Provided Minutes Spent on Discharge: 34 Hospital Course: Per HPI: TOD PABON, is a 64 M with medical history significant for hypertension and a recently positive stress test done for new onset chest pain. Patient started having exertional chest pains recently for which she under went a stress test at [facility] in [place] which came back positive, we do not have access to further details unfortunately. That was done around a week ago. Based on that he is planned for cardiac cath next March 02. Last night he woke up with chest pain that was substernal radiating to the left hand, shoulders and neck but not accompanied by shortness of breath, sweating, nausea or other symptoms. He does not have nitroglycerin at home but in the ED the pain resolved after 1 pill of nitroglycerin. In the ED vitals were okay except for rate in the 60s EKG showed sinus rhythm rate 63 normal axis, Q waves in leads III, no T wave inversions. No significant ST elevation or depression. Patient will be admitted to hospital with unstable angina as his initial troponin was negative, will be managed with dual antiplatelets and IV heparin in addition to other antianginal/anti-ischemic measures as well as cardiology consultation to determine whether he needs early intervention. Hospital Course: 1. Unstable angina/essential HTN/HLD?64-year-old male presented to the hospital with recurrent chest pain, he had had a stress test done at an outside hospital which did come back positive and was scheduled for a cardiac catheterization on 03/02/2025 however he had recurrent chest pain prior to this so he presented to our hospital. Echocardiogram was unremarkable with normal EF and heart cath demonstrated nonobstructive coronary artery disease and low flow in 3 vessels concerning for possible a spasm component. Cardiology recommended initiating on amlodipine which she tolerated just fine and was discharged on Norvasc 5 mg p.o. daily. He was continued on his aspirin at home but his Lipitor was increased from 5 mg to 40 mg to be within guidelines. I discussed with him the possibility for discharge today and he expressed understanding of the risks and benefits of going home and would like to go home today. 2. Hypothyroidism?he feels that his Synthroid at 125 mcg daily was causing palpitations so he decreased this on his own to 75 mcg and has not had recurrent symptoms. His TSH on admission was slightly elevated to 4.22 however his T4 was in the normal range so since he did make changes on his own I do recommend he follow-up with his PCP for outpatient monitoring of his thyroid labs. Physical Exam Narrative General: Alert, Oriented x3, Cooperative, No apparent distress HEENT: Atraumatic, PERRLA, EOMI, Normocephalic Oral: Moist Mucosa Neck: Supple, No JVD Lungs: Diminished, Normal air movement, No rhonchi, No wheeze, No rales Cardiovascular: Regular rate, Regular Rhythm, Normal S1, Normal S2, No murmurs Abdomen: Soft, Non Tender, Non-Distended, No Hepato-splenomegaly Extremities: No edema, Capillary Refill Less than 3 Seconds Skin: No rashes, No breakdown Musculoskeletal: No Tenderness to Palpation of Joints or Extremities Neurological: No focal neurological deficits, moves all extremities Psych/Mental Status: Normal Affect, Appropriate Weight / BMI Weight Weight: 214 lb 15.211 oz Body Mass Index (BMI) 33.6 ABG / Lab / Microbiology Data 02/26/25 05:42 02/26/25 05:42 Laboratory: Laboratory Results - last 24 hr 02/27/25 07:17: Magnesium 2.2, Free T4 1.40 Radiography Diagnostic Testing: Radiology Impression Echocardiogram 02/26/25 10:30 Interpretation Summary Normal left ventricular systolic function, with EF: 65% by Klein's biplane Normal left ventricular diastolic function Normal right ventricular systolic function No hemodynamically significant valvular disease Ordering Physician: Eduin Byers Referring Physician: Kelsey Braxton Performed By: Renan Medina RDCS D/C Instructions Call your doctor if you observe: Fever of 101 or Higher, Shortness of breath, Dizziness, Fainting spells, Swelling in the ankles, Chest pain and Increased palpitations (irregular heartbeat) DC O2, CPAP, BIPAP Needs Home O2 Discharge instructions: No Meaningful Use Info Meaningful Use Meaningful Use Diagnoses (Choose all that apply): None applicable Discharge Plan Admission Admit Date/Time: 02/25/25 04:58 Attending Provider: Brady Sierra Primary Care Provider: Kelsey BraxtonHebrew Consulting Providers: Christina Black; Doug Ventura; Shruthi Maguire; Shiva Resendiz; Rodrick Rodriguez; Eduin Byers; Ej Collado; Shiraz Bhatti; Jero Hall; Rafael Ortiz; Jenny Ayala; Orlin Judd; Michael Worrell; Nataly Rojas; Gabriel Craft; Kyrie Eaton; Alden Funes; Victor M Wilson CNC LATHE PROGRAMMER; Bhavna Holguin PA; Tyler Haque Instructions Additional Instructions / Restrictions: Nonobstructive coronary artery disease and echocardiogram was unremarkable and normal. He had low flow through 3 coronary artery vessels consistent with possible spasm component therefore initiated on Norvasc. Discharge Orders/Prescriptions Prescriptions: New atorvastatin 40 mg Tablet 40 mg PO QHS 30 Days Qty: 30 0RF amlodipine 5 mg Tablet 5 mg PO DAILY 30 Days Qty: 30 0RF levothyroxine 75 mcg Tablet 75 mcg PO DAILY@0600 30 Days Qty: 30 0RF Continued cholecalciferol (vitamin D3) 50 mcg (2,000 unit) capsule 3,000 unit PO QDAY ascorbic acid (vitamin C) 500 mg capsule 500 mg PO DAILY omega-3 fatty acids Capsule 1,000 mg PO DAILY aspirin 81 mg Capsule 81 mg PO DAILY lisinopril 2.5 mg tablet 2.5 mg PO DAILY buspirone 5 mg tablet 5 mg PO DAILY PRN Discontinued atorvastatin 10 mg tablet 5 mg PO DAILY levothyroxine 125 mcg tablet 125 mcg PO DAILY Referrals / Follow Up: Kelsey Braxton MD [Primary Care Provider, [facility]] - Within 1 Week Disposition Disposition (needs filled in before D/C Order can be placed): Home, Self Care Charges/Coding Visit Charges Inpatient E&M: 27628 Disch Hosp >30min
--- NOTE | 2025-03-05 09:42 | CL.D_ITS ---
Patient Name: TOD PABON Study Date: 02/26/2025 Performing: Eduin Byers MD Ht: 67 inches 170.18 cm : 1960 Wt: 215.2 lbs 97.5 kg Age: 64 Gender: male BSA: 2.08 PROCEDURE(S) PERFORMED DC01-(97803)LHC/COR/LV CLINICAL PROFILE AND INDICATIONS Indications: Suspected CAD Heart Failure: None CAD Presentations: Unstable angina. CONCLUSIONS Generalized sluggish flow all epicardial vessels 50% Mid LAD 50% Mid RCA RECOMMENDATIONS Risk factor modification CCB for possible vasospastic angina DESCRIPTION OF PROCEDURE The patient arrived to the procedure lab. The risks and benefits of the procedure as well as a full description of our services here and current unavailability of surgical backup were fully explained to the patient and/or their significant other prior to the catheterization. The Timeout was completed, verifying the correct patient and procedure. The patient's procedural site was prepped and draped in the usual fashion. Local anesthetic was given subcutaneously to right radial region with Lidocaine 2%. Using a modified Seldinger technique, arterial access was obtained via the right radial artery, a 6Fr sheath was inserted. Left Coronary Artery selective angiography was performed in multiple views using a 5 Fr. 4.0 [place] catheter. Right Coronary Artery selective angiography was then performed in multiple views using a 5 Fr. 4.0 [place] catheter. Left Coronary Artery selective angiography was performed in multiple views using a 5 Fr. 4.0 [place] catheter.The arterial sheath was pulled and a TR Band was applied for hemostasis w/ 10ml air CORONARY ANGIOGRAPHY DOMINANCE: Right Dominant LEFT HEART ASSESSMENT LVEDP: 18 mmHg LEFT MAIN: Angiographically normal LEFT ANTERIOR DESCENDING ARTERY: LAD: Tubular 30% Ostial lesion in LAD Tubular 50% Mid lesion in LAD Ectasia 40% Mid lesion in LAD RIGHT CORONARY ARTERY: RCA: Tubular 50% Mid lesion in RCA [place]ct[place] 50% Proximal lesion in RCA COMPLICATIONS No Complications PROCEDURE MEDICATIONS Versed 1 mg IV Fentanyl 50 mcg IV Oxygen: 2 L/min via nasal cannula Heparin drip- discontinued 02/26/2025 09:15:54 Heparin given IA 02/26/2025 09:36:22 Verapamil 2.5mg, Ntg 200mcgs, 2000 units of Heparin given IA 02/26/2025 09:36:22 IV Bolus: .9 NaCl 250 ml total 02/26/2025 09:41:48 SUMMARY OF HEMODYNAMIC DATA Time AIR REST ECG 09:27:01 AO 120/93 (102) SA 09:39:46 AO 129/87 (107) 09:45:48 LV 109/18, 17 09:48:01 LV 123/10, 18 09:48:16 LVp 130/10, 17 09:48:29 AOp 127/78 (100) 09:48:34 Signed By Eduin Byers MD On 02/26/2025 10:12:50 AM Eduin Byers MD
== END 2025-02-27 11:33 | disposition home or self-care (01) | DRG 287 ==
LOC: ED 03:08 → PCU 05:36
PROVIDERS: Admitting Provider Internal Medicine; Emergency Provider Specialist/Technologist Athletic Trainer; PCP Pediatrics; Referring Provider Internal Medicine; Visit Provider Family Medicine
DX: I25.110 Atherosclerotic heart disease of native coronary artery with unstable angina pectoris (principal); E03.9 Hypothyroidism, unspecified; I10 Essential (primary) hypertension; E66.9 Obesity, unspecified; Z79.82 Long term (current) use of aspirin; Z82.49 Family history of ischemic heart disease and other diseases of the circulatory system; E78.019 Familial hypercholesterolemia, unspecified; Z79.890 Hormone replacement therapy; Z79.899 Other long term (current) drug therapy; Z68.33 Body mass index [BMI] 33.0-33.9, adult; R94.39 Abnormal result of other cardiovascular function study
CPT/HCPCS: 36415; 71045; 80048; 80061; 83735; 83880; 84439; 84443; 84484; 85025; 85610; 85730; 93005; 93306; 93458; 99152; 99153; 99284; C1894; Q9967; A4216; C1769